=== PATIENT | female | born 1965 | race Caucasian/White ===

== ENCOUNTER → 2019-01-07 | Outpatient (CLI) | payer OTHER ==
[~2019-01-07] MED LIST: REGADENOSON 0.4 MG/5 ML SYRINGE IV ONE
--- NOTE | 2019-01-07 13:13 | EST ---
EXERCISE STRESS AGE: 53 SEX: F HT: 5'6" WT: 282 PROTOCOL: Lexiscan Cardiolite Study HEART RATE REST: 72 BLOOD PRESSURE REST: 127/87 MAXIMUM HEART RATE ACHIEVED: 97 MAXIMUM BLOOD PRESSURE: 174/83 INDICATIONS: Dyspnea. CLINICAL INFORMATION: Baseline rhythm is sinus mechanism, rate 72, normal axis, intervals, normal electrocardiogram. Baseline blood pressure 127/87 mmHg. Patient received an injection of Lexiscan. Electrocardiograph monitoring revealed no evidence of diagnostic ischemic ST deviation. Cardiolite was injected per protocol. CONCLUSION: 1. Nondiagnostic electrocardiograph stress testing. 2. Nuclear images will be reported separately. MMODL / IJN: [id number] /
--- NOTE | 2019-01-07 16:45 | NM ---
EXAMINATION TYPE: NM stress lexiscan cardiolite DATE OF EXAM: 01/07/2019 COMPARISON: NONE HISTORY: 53-year-old female with shortness of breath, dyspnea TECHNIQUE: After the intravenous administration of 10.4 mCi Tc 99m Sestamibi - Cardiolite resting SP ECT images acquired 45 minutes post injection. The patient received 0.4mg Lexiscan, 26 mCi Tc 99m Sestamibi - Stress images obtained 45 minutes post injection FINDINGS: Review of stress and rest SPECT images demonstrates possible small area of reversibility along the mi d anterior wall, not corroborated on polar maps. Gated analysis shows normal wall motion with an tello mated left ventricular ejection fraction of 64 %. TID is abnormally elevated at 1.37. IMPRESSION: Elevated TID (1.37) which can be seen in the setting of multivessel balanced inducible ischemia. Furt her workup is clinically indicated. Also, a small area of possible reversibility along the mid anteri or wall is not corroborated on color maps.
== END | disposition home or self-care (01) ==
LOC: RADNMMAIN 09:12
PROVIDERS: ATTEND Internal Medicine Cardiovascular Disease
DX: R94.39 Abnormal result of other cardiovascular function study (principal); R06.00 Dyspnea, unspecified
CPT/HCPCS: 93017; 83880; 78452; A9500; J2785

== ENCOUNTER → 2019-01-07 | Outpatient (CLI) | payer OTHER ==
--- NOTE | 2019-01-07 16:47 | ECHOF ---
Referral Reason:R06.00 Dyspnea MEASUREMENTS -------- HEIGHT: 165.1 cm WEIGHT: 127.9 kg BP: IVSd: 0.8 cm (0.6 - 1.1) LVIDd: 5.6 cm (3.9 - 5.3) LVPWd: 1.1 cm (0.6 - 1.1) IVSs: 1.1 cm LVIDs: 3.9 cm LVPWs: 1.4 cm LA Diam: 3.6 cm (2.7 - 3.8) LAESV Index (A-L): 18.50 ml/m Ao Diam: 3.6 cm (2.0 - 3.7) LA Diam: 3.7 cm (2.7 - 3.8) MV EXCURSION: 19.544 mm (> 18.000) MV EF SLOPE: 83 mm/s (70 - 150) EPSS: 0.4 cm MV E Miguel Ángel: 0.71 m/s MV DecT: 267 ms MV A Miguel Ángel: 0.79 m/s MV E/A Ratio: 0.90 RAP: 5.00 mmHg RVSP: 21.33 mmHg FINDINGS -------- Sinus rhythm. Morbid Obesity This was a techncally difficult study with suboptimal views, , Lumason utilized for enhancement of images. LV size, wall thickness and systolic function are normal, with an EF greater than 55%. The left jb tricular size is normal. The right ventricle is normal in size. Normal LA size by volume 22+/-6 ml/m2. The right atrial size is normal. 5.0mg OF Lumason UTLIZED: 2 OR MORE WALL SEGMENTS NOT VISUALIZED. The aortic valve was not well visualized. Mild mitral annular calcification present. Mild mitral regurgitation is present. Mild tricuspid regurgitation present. There is no evidence of pulmonary hypertension. The right v entricular systolic pressure, as measured by Doppler, is 21.33mmHg. The pulmonic valve was not well visualized. There is no pulmonic regurgitation present. The aortic root size is normal. There is no pericardial effusion. CONCLUSIONS -------- 1. Sinus rhythm. 2. Morbid Obesity 3. This was a techncally difficult study with suboptimal views, , Lumason utilized for enhancement of images. 4. LV size, wall thickness and systolic function are normal, with an EF greater than 55%. 5. The left ventricular size is normal. 6. Normal LA size by volume 22+/-6 ml/m2. 7. 5.0mg OF Lumason UTLIZED: 2 OR MORE WALL SEGMENTS NOT VISUALIZED. 8. The aortic valve was not well visualized. 9. Mild mitral annular calcification present. 10. Mild mitral regurgitation is present. 11. Mild tricuspid regurgitation present. 12. There is no evidence of pulmonary hypertension. 13. The pulmonic valve was not well visualized. 14. The aortic root size is normal. 15. There is no pericardial effusion. DIVISION CHIEF: Silvana Cruz RDCS
== END | disposition home or self-care (01) ==
LOC: RADECHMAIN 09:20
PROVIDERS: ATTEND Internal Medicine Pulmonary Disease
DX: I08.1 Rheumatic disorders of both mitral and tricuspid valves (principal); E66.01 Morbid (severe) obesity due to excess calories
CPT/HCPCS: C8929; Q9950; 93306

== ENCOUNTER → 2019-01-16 | Outpatient (CLI) | payer OTHER ==
[2019-01-16 13:14] LABS: Basophils % (A) 1 %; Eosinophils # (A) 0.1 k/uL (0-0.7); Eosinophils % (A) 1 %; HCT 36.3 % (34.0-46.0); HGB 12.6 gm/dL (11.4-16.0); Lymphocytes # (A) 1.7 k/uL (1.0-4.8); Lymphocytes % (A) 22 %; MCH 33.5 pg (25.0-35.0); MCHC 34.6 g/dL (31.0-37.0); MCV 96.7 fL (80.0-100.0); Mean Platelet Volume 7.1; Monocytes # (A) 0.2 k/uL (0-1.0); Monocytes % (A) 3 %; Neutrophils # (A) 5.5 k/uL (1.3-7.7); Neutrophils % (A) 72 %; Platelet Count 232 k/uL (150-450); RBC 3.76 m/uL (3.80-5.40); RDW 13.7 % (11.5-15.5); WBC 7.7 k/uL (3.8-10.6)
[2019-01-16 13:21] LABS: INR 0.9 (<1.2); Prothrombin Time 9.5 sec (9.0-12.0)
[2019-01-16 18:47] LABS: African American GFR (CKD) 114.6 (60.0-200.0); Albumin 4.1 g/dL (3.80-4.90); Albumin/Globulin Ratio 1.86 (1.60-3.17); Anion Gap 11.3 mmol/L (4.00-12.00); BUN/Creat Ratio 14.29 Ratio (12.00-20.00); Calcium 8.8 mg/dL (8.7-10.3); Carbon Dioxide 31.7 mmol/L (21.6-31.8); Globulin 2.2 g/dL (1.6-3.3); Total Bilirubin 0.5 mg/dL (0.3-1.2); Total Protein 6.3 g/dL (6.2-8.2)
== END | disposition home or self-care (01) ==
LOC: LABWHC1 11:50
PROVIDERS: ATTEND Internal Medicine Cardiovascular Disease
DX: R06.00 Dyspnea, unspecified (principal)
CPT/HCPCS: 36415; 80053; 85025; 85610

== ENCOUNTER 2022-07-22 10:53 | Inpatient (IN) | payer MEDICARE, OTHER ==
[2022-07-22] MEDS ORDERED: SODIUM CHLORIDE 0.9% 500 ML 500 ML IV ONE (11:07)
[2022-07-22] MEDS ORDERED: SODIUM CHLORIDE 0.9% 1,000 ML IV ONE (11:07)
--- NOTE | 2022-07-22 11:10 | ED ---
General Adult HPI - General Stated complaint: SOB Time Seen by Provider: 07/22/22 11:00 Source: patient, RN notes reviewed, old records reviewed - History of Present Illness Initial comments: This is a 56-year-old female presents emergency department with past medical history significant for COPD and asthma. Patient states she started having difficulty breathing yesterday has gotten progressively worse. When EMS arrived they stated she wasn't moving much of a gave her breathing treatment it improved her considerably. Patient states his sugars are also benign she's been urinating a lot. Patient denies any chest pain or palpitations. Patient denies any abdominal pain however she states she has been vomiting and the last time she vomited was yesterday and she also said diarrhea on and off all week. Patient also has a past medical history significant for breast cancer and she last received chemotherapy on Monday. Patient states she has been feeling quite lightheaded and has thought that time she might pass out. These symptoms as well started yesterday - Related Data Home Medications Medication Instructions Recorded Confirmed ALPRAZolam [Xanax] 0.25 mg PO TID PRN 07/22/22 07/22/22 Acetaminophen Tab [Tylenol Tab] 500 mg PO QID PRN 07/22/22 07/22/22 Albuterol Sulfate [Albuterol 2 puff INHALATION RT-Q4H PRN 07/22/22 07/22/22 Sulfate Hfa] Ammonium Lactate Lotion 1 applic TOPICAL DAILY 07/22/22 07/22/22 [Lac-Hydrin 12% Lotion] Aspirin 81 mg PO DAILY@79907/22/22 07/22/22 Atorvastatin [Lipitor] 40 mg PO HS@199907/22/22 07/22/22 Cetirizine HCl [Zyrtec] 10 mg PO DAILY@79907/22/22 07/22/22 Cholecalciferol [Vitamin D3 (25 75 mcg PO DAILY@79907/22/22 07/22/22 Mcg = 1000 Iu)] Citalopram Hydrobromide [CeleXA] 40 mg PO DAILY@79907/22/22 07/22/22 Complete Advanced Complete 1 tab PO DAILY@79907/22/22 07/22/22 Cyanocobalamin (Vitamin B-12) 1,000 mcg PO DAILY@79907/22/22 07/22/22 [Vitamin B-12] DULoxetine HCL [Cymbalta] 30 mg PO BID@0800,199907/22/22 07/22/22 Dulaglutide [Trulicity] 1.5 mg SQ FR 07/22/22 07/22/22 Ferrous Sulfate [Feosol] 325 mg PO DAILY@79907/22/22 07/22/22 Fluticasone Propionate 110 Mcg 2 puff INHALATION RT-BID PRN 07/22/22 07/22/22 [Flovent 110 Mcg Inhaler] Furosemide [Lasix] 40 mg PO DAILY@79907/22/22 07/22/22 Ibuprofen [Motrin] 400 mg PO QID PRN 07/22/22 07/22/22 Loratadine [Claritin] 10 mg PO DAILY PRN 07/22/22 07/22/22 Multivitamins, Thera [Multivitamin 1 tab PO DAILY@79907/22/22 07/22/22 (formulary)] Geneva-3/Dha/Epa/Fish Oil [Fish Oil 1 cap PO BID@08,199907/22/22 07/22/22 1,000 mg Softgel] Ondansetron [Zofran] 4 mg PO Q8H PRN 07/22/22 07/22/22 Pantoprazole [Protonix] 40 mg PO DAILY@79907/22/22 07/22/22 Pembrolizumab [Keytruda] 1 dose IV Q21D 07/22/22 07/22/22 Prochlorperazine [Compazine] 10 mg PO Q6H PRN 07/22/22 07/22/22 Simethicone [Gas-X] 125 mg PO QID PRN 07/22/22 07/22/22 gemfibroziL [Lopid] 600 mg PO BID@0800,1200 07/22/22 07/22/22 glipiZIDE [Glucotrol] 10 mg PO BID@0800,1200 07/22/22 07/22/22 metFORMIN HCL [Glucophage] 500 mg PO BID@0800,199907/22/22 07/22/22 methocarbamoL [Robaxin-750] 750 mg PO BID PRN 07/22/22 07/22/22 Allergies Allergy/AdvReac Type Severity Reaction Status Date / Time adhesive Allergy Rash/Hives Verified 07/22/22 13:55 steri stips Allergy Rash/Hives Uncoded 07/22/22 13:55 Review of Systems ROS Statement: Those systems with pertinent positive or pertinent negative responses have been documented in the HPI. ROS Other: All systems not noted in ROS Statement are negative. General Exam - General Exam Comments Initial Comments: GENERAL: Patient is well-developed and well-nourished. Patient is nontoxic and well- hydrated and is in mild distress. ENT: Neck is soft and supple. No significant lymphadenopathy is noted. Oropharynx is clear. Dry mucous membranes. Neck has full range of motion without eliciting any pain. EYES: The sclera were anicteric and conjunctiva were pink and moist. Extraocular movements were intact and pupils were equal round and reactive to light. Eyelids were unremarkable. PULMONARY: Unlabored respirations. Good breath sounds bilaterally. No audible rales rhonchi or wheezing was noted. CARDIOVASCULAR: There is a regular rate and rhythm without any murmurs gallops or rubs. ABDOMEN: Soft and nontender with normal bowel sounds. SKIN: Skin is clear with no lesions or rashes and otherwise unremarkable. NEUROLOGIC: Patient is alert and oriented x3. Cranial nerves II through XII are grossly intact. Motor and sensory are also intact. Normal speech, volume and content. Symmetrical smile. MUSCULOSKELETAL: Normal extremities with adequate strength and full range of motion. No lower extremity swelling or edema. No calf tenderness. LYMPHATICS: No significant lymphadenopathy is noted PSYCHIATRIC: Normal psychiatric evaluation. Course Vital Signs 07/22/22 07/22/22 07/22/22 11:04 11:48 12:15 Temperature 98.2 F Pulse Rate 108 H 103 H 99 Respiratory 22 22 20 Rate Blood Pressure 100/60 92/63 101/70 O2 Sat by Pulse 98 100 Oximetry 07/22/22 07/22/22 13:00 14:42 Temperature Pulse Rate 98 Respiratory 20 Rate Blood Pressure 109/63 115/64 O2 Sat by Pulse 100 Oximetry Medical Decision Making - Medical Decision Making EKG was interpreted by myself shows sinus rhythm at 97 bpm OR interval 100 690 QRS is 94 QT interval 375 QTC is 4:30. Patient's EKG shows no ST segment elevation or depression. Was pt. sent in by a medical professional or institution (Dr., PA, [facility] [employer], urgent care, hospital, or [facility]...) When possible be specific @ -No Did you speak to anyone other than the patient for history (EMS, parent, family, police, friend...)? What history was obtained from this source @ -No Did you review nursing and triage notes (agree or disagree)? Why? @ -I reviewed and agree with nursing and triage notes Were old charts reviewed (outside hosp., previous admission, EMS record, old EKG, old radiological studies, urgent care reports/EKG's, [facility] records)? Report findings @ -No old charts were reviewed Differential Diagnosis (chest pain, altered mental status, abdominal pain women, abdominal pain men, vaginal bleeding, weakness, fever, dyspnea, syncope, headache, dizziness, GI bleed, back pain, seizure, CVA, palpatations, mental health, musculoskeletal)? @ -Differential Dyspnea: Coronary syndrome, arrhythmia, tamponade, asthma, COPD, pulmonary embolism, pneumonia, pneumothorax, pulmonary effusion, anaphylaxis, diabetic ketoacidosis, flailed chest, pulmonary contusion, diaphragmatic rupture, anemia, neuromuscular, this is not meant to be an all-inclusive list. EKG interpreted by me (3pts min.). @ -As above X-rays interpreted by me (1pt min.). @ -Chest x-ray was interpreted by myself is on no acute abnormality. CT interpreted by me (1pt min.). @ -None done U/S interpreted by me (1pt. min.). @ -None done What testing was considered but not performed or refused? (CT, X-rays, U/S, labs)? Why? @ -None What meds were considered but not given or refused? Why? @ -None Did you discuss the management of the patient with other professionals (professionals i.e. GREGOR Saunders, [employer], lab, RT, psych nurse, social media intern, senior policy analyst, teacher, railroad police officer, field nurse case manager)? Give summary @ -I spoke with Dr. Stapleton he agreed to admit the patient Was smoking cessation discussed for >3mins.? @ -No Was critical care preformed (if so, how long)? @ -35 minutes Were there social determinants of health that impacted care today? How? (Homel essness, low income, unemployed, alcoholism, drug addiction, transportation, low edu. Level, literacy, decrease access to med. care, residential, rehab)? @ -No Was there de-escalation of care discussed even if they declined (Discuss DNR or withdrawal of care, Hospice)? DNR status @ -No What co-morbidities impacted this encounter? (DM, HTN, Smoking, COPD, CAD, Cancer, CVA, ARF, Chemo, Hep., AIDS, mental health diagnosis, sleep apnea, morbid obesity)? @ -None Was patient admitted / discharged? Hospital course, mention meds given and route, prescriptions, significant lab abnormalities, going to OR and other pertinent info. @ -Patient came in according to EMS she was wheezing and not moving much air and after a breathing treatment she was doing considerably better. When I saw the patient she was no longer dyspneic and I did not hear any wheezing. Patient was in DKA and I gave her a fluid bolus Dr. Stapleton was contacted he wanted to admit the patient so I admitted the patient. He did not want to start insulin at this point so I held at this point. Patient's white count was 0.6 and because she was a COPD or and had some bronchospasms on the way in I keeps her a dose of antibiotics to cover her at this time. Undiagnosed new problem with uncertain prognosis? @ -No Drug Therapy requiring intensive monitoring for toxicity (Heparin, Nitro, Insulin, Cardizem)? @ -No Were any procedures done? @ -No Diagnosis/symptom? @ -DKA Acute, or Chronic, or Acute on Chronic? @ -Acute Uncomplicated (without systemic symptoms) or Complicated (systemic symptoms)? @ -Complicated Side effects of treatment? @ -No Exacerbation, Progression, or Severe Exacerbation? @ -No Poses a threat to life or bodily function? How? (Chest pain, [place], CA, pneumonia, PE, COPD, DKA, ARF, appy, cholecystitis, CVA, Diverticulitis, Homicidal, Suicidal, threat to staff... and all critical care pts) @ -Yes this can lead to dehydration and end organ dysfunction Diagnosis/symptom? @ -COPD exacerbation Acute, or Chronic, or Acute on Chronic? @ -Acute Uncomplicated (without systemic symptoms) or Complicated (systemic symptoms)? @ -Complicated Side effects of treatment? @ -none Exacerbation, Progression, or Severe Exacerbation] @ -no Poses a threat to life or bodily function? @ -no - Lab Data Result diagrams: 07/22/22 11:19 07/22/22 11:19 Lab Results 07/22/22 07/22/22 07/22/22 Range/Units 11:19 11:19 11:19 WBC 0.6 L* (3.8-10.6) k/uL RBC 3.56 L (3.80-5.40) m/uL Hgb 11.6 (11.4-16.0) gm/dL Hct 33.9 L (34.0-46.0) % MCV 95.4 (80.0-100.0) fL MCH 32.7 (25.0-35.0) pg MCHC 34.3 (31.0-37.0) g/dL RDW 12.9 (11.5-15.5) % Plt Count 160 (150-450) k/uL MPV 10.2 Differential Comment Manual Slide Review Performed PT 12.5 H (9.0-12.0) sec INR 1.2 H (<1.2) APTT 21.0 L (22.0-30.0) sec Sodium 130 L (137-145) mmol/L Potassium 3.6 (3.5-5.1) mmol/L Chloride 98 (98-107) mmol/L Carbon Dioxide 19 L (22-30) mmol/L Anion Gap 13 mmol/L BUN 15 (7-17) mg/dL Creatinine 0.71 (0.52-1.04) mg/dL Est GFR (CKD-EPI)AfAm >90 (>60 ml/min/1.73 sqM) Est GFR (CKD-EPI)NonAf >90 (>60 ml/min/1.73 sqM) Glucose 424 H (74-99) mg/dL Lactic Ac Sepsis Rflx Plasma Lactic Acid Garcia (0.7-2.0) mmol/L Calcium 7.0 L (8.4-10.2) mg/dL Magnesium 1.5 L (1.6-2.3) mg/dL Total Bilirubin 3.0 H (0.2-1.3) mg/dL AST 29 (14-36) U/L ALT 39 H (4-34) U/L Alkaline Phosphatase 57 (38-126) U/L Troponin I (0.000-0.034) ng/mL Total Protein 5.1 L (6.3-8.2) g/dL Albumin 2.8 L (3.5-5.0) g/dL Acetone, Qual Positive (Negative) 07/22/22 07/22/22 07/22/22 Range/Units 11:19 11:19 12:09 WBC (3.8-10.6) k/uL RBC (3.80-5.40) m/uL Hgb (11.4-16.0) gm/dL Hct (34.0-46.0) % MCV (80.0-100.0) fL MCH (25.0-35.0) pg MCHC (31.0-37.0) g/dL RDW (11.5-15.5) % Plt Count (150-450) k/uL MPV Differential Comment Manual Slide Review PT (9.0-12.0) sec INR (<1.2) APTT (22.0-30.0) sec Sodium (137-145) mmol/L Potassium (3.5-5.1) mmol/L Chloride (98-107) mmol/L Carbon Dioxide (22-30) mmol/L Anion Gap mmol/L BUN (7-17) mg/dL Creatinine (0.52-1.04) mg/dL Est GFR (CKD-EPI)AfAm (>60 ml/min/1.73 sqM) Est GFR (CKD-EPI)NonAf (>60 ml/min/1.73 sqM) Glucose (74-99) mg/dL Lactic Ac Sepsis Rflx Y Plasma Lactic Acid Garcia 3.8 H* (0.7-2.0) mmol/L Calcium (8.4-10.2) mg/dL Magnesium (1.6-2.3) mg/dL Total Bilirubin (0.2-1.3) mg/dL AST (14-36) U/L ALT (4-34) U/L Alkaline Phosphatase (38-126) U/L Troponin I <0.012 (0.000-0.034) ng/mL Total Protein (6.3-8.2) g/dL Albumin (3.5-5.0) g/dL Acetone, Qual (Negative) Critical Care Time Critical Care Time: Yes Total Critical Care Time: 35 Disposition Clinical Impression: Acute exacerbation of chronic obstructive pulmonary disease, Diabetic ketoacidosis Disposition: ADMITTED IP TO THIS HOSP Referrals: Nonstaff,Physician [REFERRING] - 1-2 days Time of Disposition: 14:49
[2022-07-22 11:43] LABS: ALT 39 U/L (4-34); AST 29 U/L (14-36); African American GFR (CKD) >90 (>60 ml/min/1.73 sqM); Albumin 2.8 g/dL (3.5-5.0); Alkaline Phosphatase 57 U/L (38-126); Anion Gap 13 mmol/L; Blood Urea Nitrogen 15 mg/dL (7-17); Carbon Dioxide 19 mmol/L (22-30); Chloride 98 mmol/L (98-107); Glucose 424 mg/dL (74-99); Magnesium 1.5 mg/dL (1.6-2.3); Non-African American GFR(CKD) >90 (>60 ml/min/1.73 sqM); Potassium 3.6 mmol/L (3.5-5.1); Sodium 130 mmol/L (137-145); Total Protein 5.1 g/dL (6.3-8.2)
--- NOTE | 2022-07-22 11:43 | XR ---
EXAMINATION TYPE: XR chest 2V DATE OF EXAM: 07/22/2022 11:36 AM COMPARISON: None TECHNIQUE: XR chest 2V Frontal and lateral views of the chest. CLINICAL INDICATION:Female, 56 years old with history of difficulty breathing; FINDINGS: Lungs/Pleura: There is no evidence of pleural effusion, focal consolidation, or pneumothorax. Pulmonary vascularity: Unremarkable. Heart/mediastinum: Cardiomediastinal silhouette is mildly enlarged. Musculoskeletal: No acute osseous pathology. Other findings: None Lines/Tubes: [id number] projecting over the left hemithorax with distal tip at the mid SVC. IMPRESSION: No acute cardiopulmonary disease/process.
[2022-07-22 11:45] LABS: INR 1.2 (<1.2); Prothrombin Time 12.5 sec (9.0-12.0)
[2022-07-22] MEDS ORDERED: KETOROLAC 15 MG/ML 1 ML VIAL IVP STA ×2 (11:59→18:47)
[2022-07-22 12:30] LABS: HCT 33.9 % (34.0-46.0); HGB 11.6 gm/dL (11.4-16.0); MCH 32.7 pg (25.0-35.0); MCHC 34.3 g/dL (31.0-37.0); MCV 95.4 fL (80.0-100.0); Mean Platelet Volume 10.2; Platelet Count 160 k/uL (150-450); RBC 3.56 m/uL (3.80-5.40); RDW 12.9 % (11.5-15.5)
[2022-07-22 12:32] LABS: WBC 0.6 k/uL (3.8-10.6)
[2022-07-22] MEDS ORDERED: CEFEPIME 2 GM in SODIUM CHLORIDE 0.9% 100 ML IVPB STA (13:00)
[2022-07-22] MEDS ORDERED: NALOXONE 0.4 MG/ML 1 ML VIAL IV PRN (14:52)
[2022-07-22] MEDS ORDERED: bisacodyL 5 MG TABLET.DR PO PRN (14:55)
[2022-07-22] MEDS ORDERED: MELATONIN 3 MG TABLET PO PRN (14:55)
[2022-07-22] MEDS ORDERED: MAGNESIUM HYDROXIDE 2,400 MG/10 ML CUP PO PRN (14:55)
[2022-07-22] MEDS ORDERED: ALBUTEROL HFA INHALER INHALATION PRN (15:01)
[2022-07-22] MEDS ORDERED: methocarbamoL 750 MG TAB PO PRN (15:01)
[2022-07-22] MEDS ORDERED: ALPRAZolam 0.25 MG TAB PO PRN (15:01)
[2022-07-22] MEDS ORDERED: VANCOMYCIN IV PER PHARMACY 1 EACH MISC MISCELLANE PRN (15:04)
[2022-07-22] MEDS ORDERED: VANCOMYCIN 1,750 MG in SODIUM CHLORIDE 0.9% 500 ML 500 ML IVPB ONE (15:45)
[2022-07-22 15:55] LABS: African American GFR (CKD) >90 (>60 ml/min/1.73 sqM); Anion Gap 15 mmol/L; Blood Urea Nitrogen 15 mg/dL (7-17); Carbon Dioxide 19 mmol/L (22-30); Chloride 98 mmol/L (98-107); Glucose 425 mg/dL (74-99); Non-African American GFR(CKD) >90 (>60 ml/min/1.73 sqM); Potassium 3.6 mmol/L (3.5-5.1); Sodium 132 mmol/L (137-145)
[2022-07-22] MEDS ORDERED: IPRATROPIUM-ALBUTEROL 3 ML NEB INHALATION SCH ×2 (16:00→20:00)
[2022-07-22] MEDS: SODIUM CHLORIDE 0.9% 1,000 ML IV SCH (16:06)
[2022-07-22] MEDS: ONDANSETRON 4 MG/2 ML VIAL IVP PRN ×2 (16:07→22:25)
[2022-07-22] MEDS: IPRATROPIUM 0.5 MG/2.5 ML NEBU INHALATION SCH ×3 (16:13→21:04)
[2022-07-22] MEDS: ALBUTEROL NEBULIZED 2.5 MG/3 ML INHALATION SCH ×3 (16:13→21:04)
[2022-07-22 16:43] LABS: Glucose,Whole Blood 425 mg/dL (70-110)
--- NOTE | 2022-07-22 17:37 | P.HPIM ---
History of Present Illness H&P Date: 07/29/22 Chief Complaint: Shortness of breath 86-year-old female patient with a past medical history significant for COPD/asthma not on home oxygen, nonsmoker, hypertension, diabetes mellitus type 2, breast cancer in the right breast receiving chemotherapy currently ,came to the emergency room with a history of shortness of breath and wheezing which started 2 days prior to admission. Patient data cough with expectoration of whitish to yellow sputum., Denied any complaints of fever chills or rhinitis. Patient denied any history of chest pain nausea and diaphoresis palpitations. Patient has had some vomiting and diarrhea off and on for the last 3-4 days but denied any hematemesis melena or bleeding per rectum, denied any history of urinary symptoms. Patient complained of generalized weakness and dizziness, denied any history of loss of consciousness. Patient denied any history of headache blurry vision and difficulty with speech numbness tingling or weakness of the extremities ER course Labs of note White cell count was 0.6, PT 12.5, INR 1.2, sodium 132, bicarb 19, glucose 425, lactic acid 3.8, calcium 7.0, phosphorus 1.8, magnesium 1.5 Chest x-ray poor inspiratory film no definite infiltrates noted Patient received neb treatments, IV vancomycin and IV cefepime in the ER Heart rate was noted to be 108, white cell count was 0.6 meeting SIRS criteria Review of Systems All review of systems were reviewed and was noted to be negative other than that which is mentioned in the HPI Past Medical History Past Medical History: Asthma, Cancer, COPD, Diabetes Mellitus, Hypertension Past Surgical History: Heart Catheterization Additional Past Surgical History / Comment(s): port for chemo, abcessed teeth Past Psychological History: Depression, PTSD Smoking Status: Former smoker Past Alcohol Use History: None Reported Past Drug Use History: None Reported Medications and Allergies Home Medications Medication Instructions Recorded Confirmed Type ALPRAZolam [Xanax] 0.25 mg PO TID PRN 07/22/22 07/22/22 History Acetaminophen Tab [Tylenol Tab] 500 mg PO QID PRN 07/22/22 07/22/22 History Albuterol Sulfate [Albuterol 2 puff INHALATION RT-Q4H PRN 07/22/22 07/22/22 History Sulfate Hfa] Ammonium Lactate Lotion 1 applic TOPICAL DAILY 07/22/22 07/22/22 History [Lac-Hydrin 12% Lotion] Aspirin 81 mg PO DAILY@79907/22/22 07/22/22 History Atorvastatin [Lipitor] 40 mg PO HS@199907/22/22 07/22/22 History Cetirizine HCl [Zyrtec] 10 mg PO DAILY@79907/22/22 07/22/22 History Cholecalciferol [Vitamin D3 (25 75 mcg PO DAILY@79907/22/22 07/22/22 History Mcg = 1000 Iu)] Citalopram Hydrobromide [CeleXA] 40 mg PO DAILY@79907/22/22 07/22/22 History Complete Advanced Complete 1 tab PO DAILY@79907/22/22 07/22/22 History Cyanocobalamin (Vitamin B-12) 1,000 mcg PO DAILY@79907/22/22 07/22/22 History [Vitamin B-12] DULoxetine HCL [Cymbalta] 30 mg PO BID@799,199907/22/22 07/22/22 History Dulaglutide [Trulicity] 1.5 mg SQ FR 07/22/22 07/22/22 History Ferrous Sulfate [Feosol] 325 mg PO DAILY@79907/22/22 07/22/22 History Fluticasone Propionate 110 Mcg 2 puff INHALATION RT-BID PRN 07/22/22 07/22/22 History [Flovent 110 Mcg Inhaler] Furosemide [Lasix] 40 mg PO DAILY@79907/22/22 07/22/22 History Ibuprofen [Motrin] 400 mg PO QID PRN 07/22/22 07/22/22 History Loratadine [Claritin] 10 mg PO DAILY PRN 07/22/22 07/22/22 History Multivitamins, Thera [Multivitamin 1 tab PO DAILY@79907/22/22 07/22/22 History (formulary)] [place]-3/Dha/Epa/Fish Oil [Fish Oil 1 cap PO BID@799,199907/22/22 07/22/22 History 1,000 mg Softgel] Ondansetron [Zofran] 4 mg PO Q8H PRN 07/22/22 07/22/22 History Pantoprazole [Protonix] 40 mg PO DAILY@0800 07/22/22 07/22/22 History Pembrolizumab [Keytruda] 1 dose IV Q21D 07/22/22 07/22/22 History Prochlorperazine [Compazine] 10 mg PO Q6H PRN 07/22/22 07/22/22 History Simethicone [Gas-X] 125 mg PO QID PRN 07/22/22 07/22/22 History gemfibroziL [Lopid] 600 mg PO BID@0800,1200 07/22/22 07/22/22 History glipiZIDE [Glucotrol] 10 mg PO BID@0800,1200 07/22/22 07/22/22 History metFORMIN HCL [Glucophage] 500 mg PO BID@0800,2000 07/22/22 07/22/22 History methocarbamoL [Robaxin-750] 750 mg PO BID PRN 07/22/22 07/22/22 History Allergies Allergy/AdvReac Type Severity Reaction Status Date / Time adhesive Allergy Rash/Hives Verified 07/22/22 13:55 steri stips Allergy Rash/Hives Uncoded 07/22/22 13:55 Physical Exam Vitals: Vital Signs Temp Pulse Resp BP Pulse Ox 07/22/22 15:30 108 H 07/22/22 15:25 98 07/22/22 15:24 104 H 07/22/22 14:42 98 20 115/64 100 07/22/22 13:00 109/63 07/22/22 12:15 99 20 101/70 07/22/22 11:48 103 H 22 92/63 100 07/22/22 11:04 98.2 F 108 H 22 100/60 98 Intake and Output 07/22/22 07/22/22 07/22/22 06:59 14:59 22:59 Other: Weight 116 kg Constitutional: No acute distress, conversant, pleasant Eyes: Anicteric sclerae, moist conjunctiva, Pupils equal round reactive to light ENMT: NC/AT Oropharynx clear, no erythema, or exudates Neck: Supple, no masses, or JVD No carotid bruits No thyromegaly Lungs: Receiving oxygen 2 L by nasal cannula, Not using accessory muscles of respiration, Scattered wheezing heard Cardiovascular: Heart regular in rate and rhythm, No murmurs, gallops, or rubs No peripheral edema Abdominal: Soft Nontender, no guarding, rebound or rigidity Abdomen moving with respiration Normoactive bowel sounds No hepatomegaly, No splenomegaly No palpable mass No abdominal wall hernia noted Skin: Normal temperature, tone, texture, turgor No induration No subcutaneous nodules No rash, lesions No ulcers Extremities: No digital cyanosis No clubbing Pedal pulses intact and symmetrical Radial pulses intact and symmetrical No calf tenderness Psychiatric: Alert and oriented to person, place and time Appropriate affect fair judgement Results CBC & Chem 7: 07/22/22 11:19 07/22/22 15:24 Labs: Abnormal Lab Results - Last 24 Hours (Table) 07/22/22 07/22/22 07/22/22 Range/Units 11:19 11: 11:19 WBC 0.6 L* (3.8-10.6) k/uL RBC 3.56 L (3.80-5.40) m/uL Hct 33.9 L (34.0-46.0) % PT 12.5 H (9.0-12.0) sec INR 1.2 H (<1.2) APTT 21.0 L (22.0-30.0) sec Sodium 130 L (137-145) mmol/L Carbon Dioxide 19 L (22-30) mmol/L Glucose 424 H (74-99) mg/dL POC Glucose (mg/dL) (70-110) mg/dL Plasma Lactic Acid Garcia (0.7-2.0) mmol/L Calcium 7.0 L (8.4-10.2) mg/dL Phosphorus (2.5-4.5) mg/dL Magnesium 1.5 L (1.6-2.3) mg/dL Total Bilirubin 3.0 H (0.2-1.3) mg/dL ALT 39 H (4-34) U/L Total Protein 5.1 L (6.3-8.2) g/dL Albumin 2.8 L (3.5-5.0) g/dL 07/22/22 07/22/22 07/22/22 Range/Units 11:19 15:24 15:24 WBC (3.8-10.6) k/uL RBC (3.80-5.40) m/uL Hct (34.0-46.0) % PT (9.0-12.0) sec INR (<1.2) APTT (22.0-30.0) sec Sodium 132 L (137-145) mmol/L Carbon Dioxide 19 L (22-30) mmol/L Glucose 425 H (74-99) mg/dL POC Glucose (mg/dL) (70-110) mg/dL Plasma Lactic Acid Garcia 3.8 H* (0.7-2.0) mmol/L Calcium (8.4-10.2) mg/dL Phosphorus 1.8 L (2.5-4.5) mg/dL Magnesium (1.6-2.3) mg/dL Total Bilirubin (0.2-1.3) mg/dL ALT (4-34) U/L Total Protein (6.3-8.2) g/dL Albumin (3.5-5.0) g/dL 07/22/22 Range/Units 16:41 WBC (3.8-10.6) k/uL RBC (3.80-5.40) m/uL Hct (34.0-46.0) % PT (9.0-12.0) sec INR (<1.2) APTT (22.0-30.0) sec Sodium (137-145) mmol/L Carbon Dioxide (22-30) mmol/L Glucose (74-99) mg/dL POC Glucose (mg/dL) 425 H (70-110) mg/dL Plasma Lactic Acid Garcia (0.7-2.0) mmol/L Calcium (8.4-10.2) mg/dL Phosphorus (2.5-4.5) mg/dL Magnesium (1.6-2.3) mg/dL Total Bilirubin (0.2-1.3) mg/dL ALT (4-34) U/L Total Protein (6.3-8.2) g/dL Albumin (3.5-5.0) g/dL Assessment and Plan Assessment: COPD acute exacerbation: -Continue nebulized Ventolin -Continue IV antibiotics -Supplemental oxygen Sepsis and patient was receiving chemotherapy for breast cancer(SIRS criteria low white cell count 0.6, tachycardia) -To continue IV vancomycin -Continue IV cefepime -To consult oncology in view of leukopenia Leukopenia secondary to recent chemotherapy -Continue IV vancomycin, IV cefepime -To consult oncology Hypomagnesemia: -To give IV magnesium - repeat labs in the morning Hypophosphatemia: -To give IV sodium phosphater -repeat labs in the morning Hypocalcemia: -To start calcium with vitamin D Diabetes mellitus2 poorly controlled: -Continue subcu insulin sliding scale -Carb consistent diet -Continue home medications Hypercholesterolemia: -Continue Lipitor, fenofibrate Patient may require 1-2 days in the hospital before she should be stable for discharge home DVT prophylaxis: Lovenox Time with Patient: Greater than 30 (40 minutes) Sepsis - Sepsis Sepsis Focused Exam #1 Sepsis Focused Exam Date: 07/22/22 Sepsis Focused Exam Time: 14:55 Sepsis Focused Exam Complete: Yes Vital Signs & RN Notes Reviewed: Yes Capillary Refill: < 2 Seconds: Fingers, Toes Peripheral Pulses: Strong: Radial (R), Radial (L), Posterior Tibialis (R), Posterior Tibialis (L), Dorsalis Pedis (R), Dorsalis Pedis (L) Skin Color: Normal for Patient Respiratory Exam: wheezes Cardiovascular Exam: tachycardia
[2022-07-22] MEDS ORDERED: SODIUM PHOSPHATE 30 MMOL in DEXTROSE 5% IN WATER 250 ML IVPB ONE ×2 (17:38)
[2022-07-22 18:22] LABS: Glucose,Whole Blood 427 mg/dL (70-110)
[2022-07-22] MEDS ORDERED: DEXTROSE 50% SYRINGE 50 ML IVP PRN ×2 (18:33)
[2022-07-22] MEDS ORDERED: INSULIN ASPART (NovoLOG) 100 UNIT/ML VIAL SQ ONE (18:46)
[2022-07-22] MEDS: ACETAMINOPHEN TAB 325 MG TAB PO PRN (19:03)
[2022-07-22] MEDS: CHOLECALCIFEROL 125 MCG (5000 IU) TABLET PO SCH (19:03)
[2022-07-22] MEDS ORDERED: ALBUTEROL NEBULIZED 2.5 MG/3 ML INHALATION PRN (19:13)
[2022-07-22] MEDS: MAGNESIUM SULFATE-D5W PMX 1 GM in DEXTROSE/WATER 1 100ML.BAG IVPB SCH ×3 (19:13→22:41)
[2022-07-22] MEDS ORDERED: IPRATROPIUM 0.5 MG/2.5 ML NEBU INHALATION PRN (19:13)
[2022-07-22 20:06] LABS: African American GFR (CKD) >90 (>60 ml/min/1.73 sqM); Anion Gap 11 mmol/L; Blood Urea Nitrogen 15 mg/dL (7-17); Carbon Dioxide 19 mmol/L (22-30); Chloride 101 mmol/L (98-107); Glucose 427 mg/dL (74-99); Non-African American GFR(CKD) >90 (>60 ml/min/1.73 sqM); Phosphorus 1.9 mg/dL (2.5-4.5); Potassium 3.7 mmol/L (3.5-5.1); Sodium 131 mmol/L (137-145)
[2022-07-22] MEDS: DULoxetine HCL 30 MG CAPSULE.DR PO SCH (21:14)
[2022-07-22] MEDS: metFORMIN 500 MG TAB PO SCH (21:14)
[2022-07-22] MEDS: ATORVASTATIN 40 MG TAB PO SCH (21:14)
[2022-07-22] MEDS: CEFEPIME 2 GM in SODIUM CHLORIDE 0.9% 100 ML IVPB SCH (21:54)
[2022-07-22 22:26] LABS: Glucose,Whole Blood 409 mg/dL (70-110)
[2022-07-22] MEDS: INSULIN ASPART (NovoLOG) 100 UNIT/ML VIAL SQ SCH (22:30)
[2022-07-23 00:33] LABS: Glucose,Whole Blood 392 mg/dL (70-110)
[2022-07-23] MEDS ORDERED: INSULIN ASPART (NovoLOG) 100 UNIT/ML VIAL SQ STA (00:44)
[2022-07-23] MEDS: ACETAMINOPHEN TAB 325 MG TAB PO PRN (02:07)
[2022-07-23] MEDS: SODIUM CHLORIDE 0.9% 1,000 ML IV SCH ×3 (02:10→22:26)
[2022-07-23] MEDS: ONDANSETRON 4 MG/2 ML VIAL IVP PRN ×4 (02:16→20:34)
[2022-07-23] MEDS: MAGNESIUM SULFATE-D5W PMX 1 GM in DEXTROSE/WATER 1 100ML.BAG IVPB SCH (05:01)
[2022-07-23] MEDS: VANCOMYCIN 1,750 MG in SODIUM CHLORIDE 0.9% 500 ML 500 ML IVPB SCH ×2 (05:57→18:31)
[2022-07-23 06:16] LABS: Glucose,Whole Blood 289 mg/dL (70-110)
[2022-07-23] MEDS: INSULIN ASPART (NovoLOG) 100 UNIT/ML VIAL SQ SCH ×4 (06:23→20:15)
[2022-07-23] MEDS: CEFEPIME 2 GM in SODIUM CHLORIDE 0.9% 100 ML IVPB SCH ×3 (06:23→22:46)
[2022-07-23 07:03] LABS: HCT 34.1 % (34.0-46.0); HGB 11.5 gm/dL (11.4-16.0); MCH 32.7 pg (25.0-35.0); MCHC 33.8 g/dL (31.0-37.0); MCV 96.6 fL (80.0-100.0); Mean Platelet Volume 10.1; Platelet Count 172 k/uL (150-450); RBC 3.53 m/uL (3.80-5.40); RDW 12.8 % (11.5-15.5)
[2022-07-23 07:18] LABS: ALT 30 U/L (4-34); AST 23 U/L (14-36); African American GFR (CKD) >90 (>60 ml/min/1.73 sqM); Albumin 2.6 g/dL (3.5-5.0); Alkaline Phosphatase 49 U/L (38-126); Anion Gap 8 mmol/L; Blood Urea Nitrogen 15 mg/dL (7-17); Calcium 6.7 mg/dL (8.4-10.2); Carbon Dioxide 22 mmol/L (22-30); Chloride 102 mmol/L (98-107); Glucose 275 mg/dL (74-99); Magnesium 2.4 mg/dL (1.6-2.3); Non-African American GFR(CKD) >90 (>60 ml/min/1.73 sqM); Potassium 3.4 mmol/L (3.5-5.1); Sodium 132 mmol/L (137-145); Total Bilirubin 1.5 mg/dL (0.2-1.3); Total Protein 5.1 g/dL (6.3-8.2)
[2022-07-23 07:21] LABS: WBC 0.6 k/uL (3.8-10.6)
[2022-07-23] MEDS: ASPIRIN 81 MG PO SCH (08:31)
[2022-07-23] MEDS: DULoxetine HCL 30 MG CAPSULE.DR PO SCH ×2 (08:31→20:15)
[2022-07-23] MEDS: PANTOPRAZOLE 40 MG TABLET PO SCH (08:31)
[2022-07-23] MEDS: ENOXAPARIN 40 MG/0.4 ML SYRINGE SQ SCH (08:31)
[2022-07-23] MEDS: MULTIVITAMINS, THERA 1 EACH TAB PO SCH (08:32)
[2022-07-23] MEDS: CITALOPRAM HYDROBROMIDE 20 MG TAB PO SCH (08:32)
[2022-07-23] MEDS: FENOFIBRATE 160 MG TAB PO SCH (08:32)
[2022-07-23] MEDS: LORATADINE 10 MG TAB PO SCH (08:32)
[2022-07-23] MEDS: metFORMIN 500 MG TAB PO SCH (08:32)
[2022-07-23] MEDS: CYANOCOBALAMIN 500 MCG TAB PO SCH (08:32)
[2022-07-23] MEDS: glipiZIDE 10 MG TAB PO SCH ×2 (08:32→19:56)
[2022-07-23] MEDS: CHOLECALCIFEROL 125 MCG (5000 IU) TABLET PO SCH (08:32)
[2022-07-23] MEDS: AMMONIUM LACTATE 12% LOTION 225 GM BTL TOPICAL SCH (08:33)
[2022-07-23 09:20] LABS: RBC Morphology Normal
[2022-07-23] MEDS: ALBUTEROL NEBULIZED 2.5 MG/3 ML INHALATION SCH ×4 (09:22→21:54)
[2022-07-23] MEDS: IPRATROPIUM 0.5 MG/2.5 ML NEBU INHALATION SCH ×4 (09:22→21:54)
[2022-07-23 09:25] LABS: C Reactive Protein 36.5 mg/dL (<1.0)
--- NOTE | 2022-07-23 09:45 | P.CONS ---
History of Present Illness - Reason for Consult Consult date: 07/23/22 Breast cancer Requesting physician: Randa Stapleton - Chief Complaint Shortness of breath - History of Present Illness Ms. Pimentel is a very pleasant 56-year-old female with a history of early stage triple negative breast cancer with axillary lymph node involvement, being treated by [facility] oncologist, recently started on what sounds to be neoadjuvant combination chemotherapy with immunotherapy, Keytruda in addition to 2 other chemotherapy drugs per patient, likely carboplatin and Taxol. Comes in with intractable vomiting, shortness of breath, and generalized weakness. Chest x- ray overall unremarkable. She was hypoxic and started on 2 L nasal cannula. Blood work with severe leukopenia/neutropenia with a WBC of 0.6, hemoglobin 11.6, platelet 160. She is being treated for sepsis, with a low-grade temp last night at 100.5, tachycardia and tachypnea. Blood pressure has been normal. Blood sugars were extremely elevated at 400s and now slowly improving. A1c was 10.8. We're consulted for her history of breast cancer on chemotherapy and severe leukopenia. She says this was her first cycle of chemo. She has had the 3 weekly doses of Taxol in addition to 1 dose of Keytruda and carboplatin on day 1. During her first week she mentions having severe body pain. Secondly her pain was improved and she started having mild nausea. This past week she has had intractable nausea and vomiting as well as diarrhea. No severe abdominal discomfort. No fevers at home up until yesterday. Past Medical History Past Medical History: Asthma, Cancer, COPD, Diabetes Mellitus, Hypertension History of Any Multi-Drug Resistant Organisms: None Reported Past Surgical History: Heart Catheterization Additional Past Surgical History / Comment(s): port for chemo, abcessed teeth Past Psychological History: Depression, PTSD Smoking Status: Former smoker Past Alcohol Use History: None Reported Past Drug Use History: None Reported Medications and Allergies Home Medications Medication Instructions Recorded Confirmed Type ALPRAZolam [Xanax] 0.25 mg PO TID PRN 07/22/22 07/22/22 History Acetaminophen Tab [Tylenol Tab] 500 mg PO QID PRN 07/22/22 07/22/22 History Albuterol Sulfate [Albuterol 2 puff INHALATION RT-Q4H PRN 07/22/22 07/22/22 History Sulfate Hfa] Ammonium Lactate Lotion 1 applic TOPICAL DAILY 07/22/22 07/22/22 History [Lac-Hydrin 12% Lotion] Aspirin 81 mg PO DAILY@79907/22/22 07/22/22 History Atorvastatin [Lipitor] 40 mg PO HS@199907/22/22 07/22/22 History Cetirizine HCl [Zyrtec] 10 mg PO DAILY@79907/22/22 07/22/22 History Cholecalciferol [Vitamin D3 (25 75 mcg PO DAILY@79907/22/22 07/22/22 History Mcg = 1000 Iu)] Citalopram Hydrobromide [CeleXA] 40 mg PO DAILY@79907/22/22 07/22/22 History Complete Advanced Complete 1 tab PO DAILY@79907/22/22 07/22/22 History Cyanocobalamin (Vitamin B-12) 1,000 mcg PO DAILY@79907/22/22 07/22/22 History [Vitamin B-12] DULoxetine HCL [Cymbalta] 30 mg PO BID@799,199907/22/22 07/22/22 History Dulaglutide [Trulicity] 1.5 mg SQ FR 07/22/22 07/22/22 History Ferrous Sulfate [Feosol] 325 mg PO DAILY@79907/22/22 07/22/22 History Fluticasone Propionate 110 Mcg 2 puff INHALATION RT-BID PRN 07/22/22 07/22/22 History [Flovent 110 Mcg Inhaler] Furosemide [Lasix] 40 mg PO DAILY@79907/22/22 07/22/22 History Ibuprofen [Motrin] 400 mg PO QID PRN 07/22/22 07/22/22 History Loratadine [Claritin] 10 mg PO DAILY PRN 07/22/22 07/22/22 History Multivitamins, Thera [Multivitamin 1 tab PO DAILY@79907/22/22 07/22/22 History (formulary)] [place]-3/Dha/Epa/Fish Oil [Fish Oil 1 cap PO BID@799,199907/22/22 07/22/22 History 1,000 mg Softgel] Ondansetron [Zofran] 4 mg PO Q8H PRN 07/22/22 07/22/22 History Pantoprazole [Protonix] 40 mg PO DAILY@0800 07/22/22 07/22/22 History Pembrolizumab [Keytruda] 1 dose IV Q21D 07/22/22 07/22/22 History Prochlorperazine [Compazine] 10 mg PO Q6H PRN 07/22/22 07/22/22 History Simethicone [Gas-X] 125 mg PO QID PRN 07/22/22 07/22/22 History gemfibroziL [Lopid] 600 mg PO BID@0800,1200 07/22/22 07/22/22 History glipiZIDE [Glucotrol] 10 mg PO BID@0800,1200 07/22/22 07/22/22 History metFORMIN HCL [Glucophage] 500 mg PO BID@0800,2000 07/22/22 07/22/22 History methocarbamoL [Robaxin-750] 750 mg PO BID PRN 07/22/22 07/22/22 History Allergies Allergy/AdvReac Type Severity Reaction Status Date / Time adhesive Allergy Rash/Hives Verified 07/22/22 13:55 steri stips Allergy Rash/Hives Uncoded 07/22/22 13:55 Physical Exam Vitals: Vital Signs Temp Pulse Pulse Resp BP BP Pulse Ox 07/23/22 04:00 97.9 F 113 H 18 122/74 98 07/23/22 01:59 115 H 07/23/22 00:25 98.2 F 109 H 18 119/75 98 07/22/22 21:14 100 07/22/22 21:06 106 H 07/22/22 20:15 98.3 F 103 H 18 101/68 98 07/22/22 20:00 115 H 07/22/22 19:37 120 H 24 117/61 98 07/22/22 19:00 100.5 F H 07/22/22 18:37 100.1 F H 116 H 24 112/81 100 07/22/22 15:30 108 H 07/22/22 15:25 98 07/22/22 15:24 104 H 07/22/22 14:42 98 20 115/64 100 07/22/22 13:00 109/63 07/22/22 12:15 99 20 101/70 07/22/22 11:48 103 H 22 92/63 100 07/22/22 11:04 98.2 F 108 H 22 100/60 98 Intake and Output 07/22/22 07/23/22 07/23/22 22:59 06:59 14:59 Intake Total 540 Output Total 1 Balance 540 -1 Intake: Oral 540 Output: Urine/Stool Mix 1 Other: Voiding Method Bedside Commode Bedside Commode Diaper Diaper # Voids 1 # Bowel Movements 2 Weight 116 kg Results CBC & Chem 7: 07/23/22 06:41 07/23/22 06:41 Labs: Abnormal Lab Results - Last 24 Hours (Table) 07/22/22 07/22/22 07/22/22 Range/Units 11:19 11:19 11:19 WBC 0.6 L* (3.8-10.6) k/uL RBC 3.56 L (3.80-5.40) m/uL Hct 33.9 L (34.0-46.0) % PT 12.5 H (9.0-12.0) sec INR 1.2 H (<1.2) APTT 21.0 L (22.0-30.0) sec Sodium 130 L (137-145) mmol/L Potassium (3.5-5.1) mmol/L Carbon Dioxide 19 L (22-30) mmol/L Glucose 424 H (74-99) mg/dL POC Glucose (mg/dL) (70-110) mg/dL Hemoglobin A1c (0.0-6.0) % Plasma Lactic Acid Garcia (0.7-2.0) mmol/L Calcium 7.0 L (8.4-10.2) mg/dL Phosphorus (2.5-4.5) mg/dL Magnesium 1.5 L (1.6-2.3) mg/dL Total Bilirubin 3.0 H (0.2-1.3) mg/dL ALT 39 H (4-34) U/L Total Protein 5.1 L (6.3-8.2) g/dL Albumin 2.8 L (3.5-5.0) g/dL 07/22/22 07/22/22 07/22/22 Range/Units 11:19 15:24 15:24 WBC (3.8-10.6) k/uL RBC (3.80-5.40) m/uL Hct (34.0-46.0) % PT (9.0-12.0) sec INR (<1.2) APTT (22.0-30.0) sec Sodium 132 L (137-145) mmol/L Potassium (3.5-5.1) mmol/L Carbon Dioxide 19 L (22-30) mmol/L Glucose 425 H (74-99) mg/dL POC Glucose (mg/dL) (70-110) mg/dL Hemoglobin A1c (0.0-6.0) % Plasma Lactic Acid Garcia 3.8 H* (0.7-2.0) mmol/L Calcium (8.4-10.2) mg/dL Phosphorus 1.8 L (2.5-4.5) mg/dL Magnesium (1.6-2.3) mg/dL Total Bilirubin (0.2-1.3) mg/dL ALT (4-34) U/L Total Protein (6.3-8.2) g/dL Albumin (3.5-5.0) g/dL 07/22/22 07/22/22 07/22/22 Range/Units 16:41 18:20 18:33 WBC (3.8-10.6) k/uL RBC (3.80-5.40) m/uL Hct (34.0-46.0) % PT (9.0-12.0) sec INR (<1.2) APTT (22.0-30.0) sec Sodium (137-145) mmol/L Potassium (3.5-5.1) mmol/L Carbon Dioxide (22-30) mmol/L Glucose (74-99) mg/dL POC Glucose (mg/dL) 425 H 427 H (70-110) mg/dL Hemoglobin A1c 10.8 H (0.0-6.0) % Plasma Lactic Acid Garcia (0.7-2.0) mmol/L Calcium (8.4-10.2) mg/dL Phosphorus (2.5-4.5) mg/dL Magnesium (1.6-2.3) mg/dL Total Bilirubin (0.2-1.3) mg/dL ALT (4-34) U/L Total Protein (6.3-8.2) g/dL Albumin (3.5-5.0) g/dL 07/22/22 07/22/22 07/23/22 Range/Units 19:40 22:24 00:31 WBC (3.8-10.6) k/uL RBC (3.80-5.40) m/uL Hct (34.0-46.0) % PT (9.0-12.0) sec INR (<1.2) APTT (22.0-30.0) sec Sodium 131 L (137-145) mmol/L Potassium (3.5-5.1) mmol/L Carbon Dioxide 19 L (22-30) mmol/L Glucose 427 H (74-99) mg/dL POC Glucose (mg/dL) 409 H 392 H (70-110) mg/dL Hemoglobin A1c (0.0-6.0) % Plasma Lactic Acid Garcia (0.7-2.0) mmol/L Calcium (8.4-10.2) mg/dL Phosphorus 1.9 L (2.5-4.5) mg/dL Magnesium (1.6-2.3) mg/dL Total Bilirubin (0.2-1.3) mg/dL ALT (4-34) U/L Total Protein (6.3-8.2) g/dL Albumin (3.5-5.0) g/dL 07/23/22 07/23/22 07/23/22 Range/Units 06:14 06:41 06:41 WBC (3.8-10.6) k/uL RBC 3.53 L (3.80-5.40) m/uL Hct (34.0-46.0) % PT (9.0-12.0) sec INR (<1.2) APTT (22.0-30.0) sec Sodium 132 L (137-145) mmol/L Potassium 3.4 L (3.5-5.1) mmol/L Carbon Dioxide (22-30) mmol/L Glucose 275 H (74-99) mg/dL POC Glucose (mg/dL) 289 H (70-110) mg/dL Hemoglobin A1c (0.0-6.0) % Plasma Lactic Acid Garcia (0.7-2.0) mmol/L Calcium 6.7 L (8.4-10.2) mg/dL Phosphorus (2.5-4.5) mg/dL Magnesium 2.4 H (1.6-2.3) mg/dL Total Bilirubin 1.5 H (0.2-1.3) mg/dL ALT (4-34) U/L Total Protein 5.1 L (6.3-8.2) g/dL Albumin 2.6 L (3.5-5.0) g/dL Assessment and Plan Assessment: 1. Febrile neutropenia 2. COPD exacerbation 3. DKA 4. Severe neutropenia/leucopenia due to chemotherapy 5. Mild anemia due to chemotherapy 6. Intractable N/V due to chemotherapy 7. Mucositis due to chemotherapy 8. Diarrhea Plan: Ms. Pimentel is a very pleasant 56-year-old female with recently found early stage breast cancer, triple negative, with expiratory lymph node involvement, status post cycle 1 of what sounds like Keytruda/Carboplatin/Taxol. She is here for intractable vomiting, diarrhea, and shortness of breath. Being treated for COPD exacerbation, febrile neutropenia with severe leukopenia and neutropenia, and DKA. - Agree with broad-spectrum antibiotics, vancomycin and cefepime - Would add Flagyl due to diarrhea - Would obtain stool studies and C. diff due to underlying diarrhea - Avoid oral medication if possible - Continue to monitor CBC closely, hold off on G-CSF for now - Anti-emetics - Consider CT of the abdomen and pelvis - Continue supportive care - Hold chemotherapy while inpatient - She will need to follow-up with her oncologist prior to resuming chemotherapy outpatient Discussed with patient she is agreeable to the plan. Discussed with nursing staff. All of their questions were answered.
[2022-07-23 11:31] LABS: Glucose,Whole Blood 260 mg/dL (70-110)
[2022-07-23] MEDS: metroNIDAZOLE-NS PMX 500 MG in SALINE 1 100ML.BAG IVPB SCH ×2 (12:43→16:54)
--- NOTE | 2022-07-23 12:50 | P.PN ---
Subjective Progress Note Date: 07/23/22 Hospital Course: 86-year-old female patient with a past medical history significant for COPD/asthma not on home oxygen, nonsmoker, hypertension, diabetes mellitus type 2, breast cancer in the right breast receiving chemotherapy currently presented with shortness of breath, wheezing, productive cough. In the ER, Labs showed White cell count was 0.6, PT 12.5, INR 1.2, sodium 132, bicarb 19, glucose 425, lactic acid 3.8, calcium 7.0, phosphorus 1.8, magnesium 1.5. Chest x-ray poor inspiratory film no definite infiltrates noted. Patient received neb treatments, IV vancomycin and IV cefepime in the ER. Patient admitted for sepsis, febrile neutropenia, COPD exacerbation. Oncology and ID consulted. Subjective: Patient seen and examined at bedside. No acute events overnight. She claims that he continues to have some shortness of breath. Denies any chest pain, palpitations. She is also having abdominal pain, periumbilical, occasional nausea, denies any vomiting. She denies any urinary or bowel complaints. Pertinent positives and negatives as discussed above, a complete review of systems was performed and all other systems are negative. Vitals Signs Reviewed. General: nontoxic, no distress, appears at stated age Derm: warm, dry Head: atraumatic, normocephalic, symmetric Eyes: EOMI, no lid lag, anicteric sclera Mouth: no lip lesion, mucus membranes moist Cardiovascular: S1S2 reg, no murmur Lungs: CTA bilateral, no rhonchi, no rales , no accessory muscle use, supplemental oxygen Abdominal: soft, mild periumbilical tenderness to palpation, no guarding, no ap preciable organomegaly Ext: no gross muscle atrophy, no edema, no contractures Neuro: CN II-XI grossly intact, no focal neuro deficits Psych: Alert, oriented, appropriate affect Data Reviewed Today: Pertinent Labs: WBC 0.6, hemoglobin 11.5, platelet 172, sodium 133, potassium 3.4, blood sugars range between 260 249, magnesium 2.4 Assessment and Plan: Patient is critically ill, needs close monitoring and IV antibiotics. Active: Sepsis Febrile neutropenia Breast cancer status post cycle 1 chemotherapy COPD exacerbation Acute hypoxic respiratory failure Hypokalemia Poorly controlled Type 2 diabetes with hyperglycemia, A1c 10.8 -Oncology note reviewed: Recommended continued IV antibiotics, also started on 500 mg IV Flagyl every 8 hours -Continue cefepime 2 g IV every 8 hours, and vancomycin IV, dosed based on trough levels -Monitor renal function with BMP, and a high risk for renal toxicity from vancomycin -Infectious disease consulted -CT abdomen and pelvis ordered to identify a source -Blood cultures pending -Sputum culture ordered, Legionella antigen ordered -UA ordered -Continue bronchodilators and IV steroids -40 mEq IV potassium ordered -10 units Levemir ordered for now, continue 10 units Levemir daily, sliding scale insulin Resolved: Hypomagnesemia Diabetic ketoacidosis Chronic: Dyslipidemia DVT ppx: Lovenox Code status: Full code Anticipated discharge place: Pending clinical course Anticipated discharge time: Pending clinical course Objective - Vital Signs Vital signs: Vital Signs Temp 97.9 F 07/23/22 04:00 Pulse 113 H 07/23/22 08:00 Resp 20 07/23/22 08:00 BP 133/66 07/23/22 08:00 Pulse Ox 96 07/23/22 09:20 FiO2 Intake & Output 07/22/22 07/23/22 07/23/22 18:59 06:59 18:59 Intake Total 540 120 Output Total 1 550 Balance 539 -430 Weight 116 kg 116 kg 116 kg Intake: Oral 540 120 Output: Stool 250 Urine/Stool Mix 1 Emesis 300 Other: Voiding Method Bedside Commode Bedside Commode Diaper Diaper # Voids 1 # Bowel Movements 2 - Labs CBC & Chem 7: 07/23/22 06:41 07/23/22 06:41 Labs: Abnormal Lab Results - Last 24 Hours (Table) 07/22/22 07/22/22 07/22/22 Range/Units 15:24 15:24 16:41 WBC (3.8-10.6) k/uL RBC (3.80-5.40) m/uL Sodium 132 L (137-145) mmol/L Potassium (3.5-5.1) mmol/L Carbon Dioxide 19 L (22-30) mmol/L Glucose 425 H (74-99) mg/dL POC Glucose (mg/dL) 425 H (70-110) mg/dL Hemoglobin A1c (0.0-6.0) % Calcium (8.4-10.2) mg/dL Phosphorus 1.8 L (2.5-4.5) mg/dL Magnesium (1.6-2.3) mg/dL Total Bilirubin (0.2-1.3) mg/dL C-Reactive Protein (<1.0) mg/dL Total Protein (6.3-8.2) g/dL Albumin (3.5-5.0) g/dL 07/22/22 07/22/22 07/22/22 Range/Units 18:20 18:33 19:40 WBC (3.8-10.6) k/uL RBC (3.80-5.40) m/uL Sodium 131 L (137-145) mmol/L Potassium (3.5-5.1) mmol/L Carbon Dioxide 19 L (22-30) mmol/L Glucose 427 H (74-99) mg/dL POC Glucose (mg/dL) 427 H (70-110) mg/dL Hemoglobin A1c 10.8 H (0.0-6.0) % Calcium (8.4-10.2) mg/dL Phosphorus 1.9 L (2.5-4.5) mg/dL Magnesium (1.6-2.3) mg/dL Total Bilirubin (0.2-1.3) mg/dL C-Reactive Protein (<1.0) mg/dL Total Protein (6.3-8.2) g/dL Albumin (3.5-5.0) g/dL 07/22/22 07/23/22 07/23/22 Range/Units 22:24 00:31 06:14 WBC (3.8-10.6) k/uL RBC (3.80-5.40) m/uL Sodium (137-145) mmol/L Potassium (3.5-5.1) mmol/L Carbon Dioxide (22-30) mmol/L Glucose (74-99) mg/dL POC Glucose (mg/dL) 409 H 392 H 289 H (70-110) mg/dL Hemoglobin A1c (0.0-6.0) % Calcium (8.4-10.2) mg/dL Phosphorus (2.5-4.5) mg/dL Magnesium (1.6-2.3) mg/dL Total Bilirubin (0.2-1.3) mg/dL C-Reactive Protein (<1.0) mg/dL Total Protein (6.3-8.2) g/dL Albumin (3.5-5.0) g/dL 07/23/22 07/23/22 07/23/22 Range/Units 06:41 06:41 11:29 WBC 0.6 L* (3.8-10.6) k/uL RBC 3.53 L (3.80-5.40) m/uL Sodium 132 L (137-145) mmol/L Potassium 3.4 L (3.5-5.1) mmol/L Carbon Dioxide (22-30) mmol/L Glucose 275 H (74-99) mg/dL POC Glucose (mg/dL) 260 H (70-110) mg/dL Hemoglobin A1c (0.0-6.0) % Calcium 6.7 L (8.4-10.2) mg/dL Phosphorus (2.5-4.5) mg/dL Magnesium 2.4 H (1.6-2.3) mg/dL Total Bilirubin 1.5 H (0.2-1.3) mg/dL C-Reactive Protein 36.5 H (<1.0) mg/dL Total Protein 5.1 L (6.3-8.2) g/dL Albumin 2.6 L (3.5-5.0) g/dL
--- NOTE | 2022-07-23 12:53 | CT ---
EXAMINATION TYPE: CT abdomen pelvis wo/w con DATE OF EXAM: 07/23/2022 COMPARISON: None HISTORY: abd pain,sepsis. CT DLP: 4361.2 mGycm Automated exposure control for dose reduction was used. TECHNIQUE: Helical acquisition of images was performed from the lung bases through the pelvis. CONTRAST: Performed without Oral Contrast and with IV Contrast, patient injected with 100 mL of Isovue 300. FINDINGS: The visualized lung bases are clear and there is no infiltrate or effusion. The gallbladder is prominent in size and there are a few scattered gallstones but there is no wall th ickening or pericholecystic fluid. There is no biliary ductal dilatation. There is no focal mass or organomegaly involving the liver, pancreas or spleen. There is mild hazy de nsity in the pancreatic head raising the question of mild pancreatitis correlation is recommended. The caliber the abdominal aorta is normal. The kidneys excrete contrast promptly and symmetrically an d there is no solid renal mass or hydronephrosis. The left side of the abdomen there are a few loops of dilated small bowel loops some of which appear to contain fecal matter. Findings raise the question of a focal ileus or closed loop obstruction. The re is no evidence of bowel wall ischemia. There is a small ventral hernia containing small bowel loops but there is no evidence for bowel ische antwon or strangulation within the hernia. There is marked fat within the wall of the cecum and ascending colon which can be seen in obesity or chronic inflammatory disease such as chronic ulcerative colitis or Crohn's disease. There is no pelvic mass, free fluid or adenopathy within the pelvis IMPRESSION: 1. Cluster of enlarged small bowel loops in left abdomen, which contain fecal matter raising the ques tion of a small bowel focal ileus or closed loop obstruction.. There is no evidence of bowel ischemia . 2. Ventral hernia containing small bowel loops with no evidence of bowel strangulation or ischemia wi thin the hernia. 3. Abnormal cecum and ascending colon wall as described above. 4. Distended gallbladder with a few scattered gallstones but no pericholecystic fluid or gallbladder wall thickening. 5. Mild hazy density adjacent to the pancreatic head raising the question of pancreatitis and clinica l correlation is recommended.
[2022-07-23] MEDS ORDERED: INSULIN DETEMIR (LEVEMIR) 100 UNIT/ML SYR SQ ONE (13:30)
[2022-07-23] MEDS: POTASSIUM CHLORIDE 10 MEQ in WATER FOR INJECTION 1 100ML.BAG IVPB SCH ×4 (14:59→20:15)
[2022-07-23 16:06] LABS: Glucose,Whole Blood 237 mg/dL (70-110)
[2022-07-23] MEDS: methylPREDNISolone SOD SUCCI 40 MG/ML 1 ML VIAL IV SCH (16:54)
[2022-07-23 20:08] LABS: Glucose,Whole Blood 247 mg/dL (70-110)
[2022-07-23] MEDS: ATORVASTATIN 40 MG TAB PO SCH (20:15)
--- NOTE | 2022-07-23 20:57 | P.CONS ---
History of Present Illness - Reason for Consult Consult date: 07/23/22 Febrile neutropenia Requesting physician: Tayo Miller - Chief Complaint Vomiting diarrhea, not feeling well x 1 week - History of Present Illness Patient is a 56-year female with a past medical history taken for diabetes mellitus hypertension COPD patient did have a history of right breast cancer on chemotherapy last chemo was about a week ago on the Monday 2 days later on patient started not feeling well symptom has been mostly nausea and vomiting and did have some diarrhea patient also complaining of difficulty in breathing that the pain is getting worse the day before presentation to the hospital patient denies having any chest pain she did have a cough but more intense below sputum production and no urinary symptoms with the symptom the patient has been evaluated on arrival to the ER patient was afebrile subsequently did spike a fever of 100.5 F patient did have a leukopenia and neutropenia kidney function has been normal bilirubin was mildly elevated however rest of the liver enzymes are normal CRP 36.5 procalcitonin 6.04 serum acetone was negative blood cultures obtained which are currently pending patient did have a chest x-ray no acute cardiopulmonary disease process patient did have a CT of abdominal pelvis which did show some enlarged small bowel loops in the left abdominal concerning for bowel obstruction no ischemia ventral hernia contains small bowel loops with no evidence of strangulation or ischemia distended gallbladder but no pericholecystic fluid or gallbladder wall thickening patient admitted with a past metabolic infectious disease was consulted for further management Review of Systems Positive point has been mentioned in the HPI rest of the systems are negative Past Medical History Past Medical History: Asthma, Cancer, COPD, Diabetes Mellitus, Hypertension History of Any Multi-Drug Resistant Organisms: None Reported Past Surgical History: Heart Catheterization Additional Past Surgical History / Comment(s): port for chemo, abcessed teeth Past Psychological History: Depression, PTSD Smoking Status: Former smoker Past Alcohol Use History: None Reported Past Drug Use History: None Reported Medications and Allergies Home Medications Medication Instructions Recorded Confirmed Type ALPRAZolam [Xanax] 0.25 mg PO TID PRN 07/22/22 07/22/22 History Acetaminophen Tab [Tylenol Tab] 500 mg PO QID PRN 07/22/22 07/22/22 History Albuterol Sulfate [Albuterol 2 puff INHALATION RT-Q4H PRN 07/22/22 07/22/22 History Sulfate Hfa] Ammonium Lactate Lotion 1 applic TOPICAL DAILY 07/22/22 07/22/22 History [Lac-Hydrin 12% Lotion] Aspirin 81 mg PO DAILY@79907/22/22 07/22/22 History Atorvastatin [Lipitor] 40 mg PO HS@199907/22/22 07/22/22 History Cetirizine HCl [Zyrtec] 10 mg PO DAILY@79907/22/22 07/22/22 History Cholecalciferol [Vitamin D3 (25 75 mcg PO DAILY@79907/22/22 07/22/22 History Mcg = 1000 Iu)] Citalopram Hydrobromide [CeleXA] 40 mg PO DAILY@79907/22/22 07/22/22 History Complete Advanced Complete 1 tab PO DAILY@79907/22/22 07/22/22 History Cyanocobalamin (Vitamin B-12) 1,000 mcg PO DAILY@79907/22/22 07/22/22 History [Vitamin B-12] DULoxetine HCL [Cymbalta] 30 mg PO BID@799,199907/22/22 07/22/22 History Dulaglutide [Trulicity] 1.5 mg SQ FR 07/22/22 07/22/22 History Ferrous Sulfate [Feosol] 325 mg PO DAILY@79907/22/22 07/22/22 History Fluticasone Propionate 110 Mcg 2 puff INHALATION RT-BID PRN 07/22/22 07/22/22 History [Flovent 110 Mcg Inhaler] Furosemide [Lasix] 40 mg PO DAILY@79907/22/22 07/22/22 History Ibuprofen [Motrin] 400 mg PO QID PRN 07/22/22 07/22/22 History Loratadine [Claritin] 10 mg PO DAILY PRN 07/22/22 07/22/22 History Multivitamins, Thera [Multivitamin 1 tab PO DAILY@79907/22/22 07/22/22 History (formulary)] Amity-3/Dha/Epa/Fish Oil [Fish Oil 1 cap PO BID@799,199907/22/22 07/22/22 History 1,000 mg Softgel] Ondansetron [Zofran] 4 mg PO Q8H PRN 07/22/22 07/22/22 History Pantoprazole [Protonix] 40 mg PO DAILY@0800 07/22/22 07/22/22 History Pembrolizumab [Keytruda] 1 dose IV Q21D 07/22/22 07/22/22 History Prochlorperazine [Compazine] 10 mg PO Q6H PRN 07/22/22 07/22/22 History Simethicone [Gas-X] 125 mg PO QID PRN 07/22/22 07/22/22 History gemfibroziL [Lopid] 600 mg PO BID@0800,1200 07/22/22 07/22/22 History glipiZIDE [Glucotrol] 10 mg PO BID@0800,1200 07/22/22 07/22/22 History metFORMIN HCL [Glucophage] 500 mg PO BID@0800,2000 07/22/22 07/22/22 History methocarbamoL [Robaxin-750] 750 mg PO BID PRN 07/22/22 07/22/22 History Allergies Allergy/AdvReac Type Severity Reaction Status Date / Time adhesive Allergy Rash/Hives Verified 07/22/22 13:55 steri stips Allergy Rash/Hives Uncoded 07/22/22 13:55 Physical Exam Vitals: Vital Signs Temp Pulse Pulse Resp BP BP Pulse Ox 07/23/22 09:20 96 07/23/22 08:00 113 H 20 133/66 07/23/22 04:00 97.9 F 113 H 18 122/74 98 07/23/22 01:59 115 H 07/23/22 00:25 98.2 F 109 H 18 119/75 98 07/22/22 21:14 100 07/22/22 21:06 106 H 07/22/22 20:15 98.3 F 103 H 18 101/68 98 07/22/22 20:00 115 H 07/22/22 19:37 120 H 24 117/61 98 07/22/22 19:00 100.5 F H 07/22/22 18:37 100.1 F H 116 H 24 112/81 100 07/22/22 15:30 108 H 07/22/22 15:25 98 07/22/22 15:24 104 H 07/22/22 14:42 98 20 115/64 100 07/22/22 13:00 109/63 Intake and Output 07/22/22 07/23/22 07/23/22 22:59 06:59 14:59 Intake Total 540 120 Output Total 1 550 Balance 540 -1 -430 Intake: Oral 540 120 Output: Stool 250 Urine/Stool Mix 1 Emesis 300 Other: Voiding Method Bedside Commode Bedside Commode Bedside Commode Diaper Diaper Diaper # Voids 1 # Bowel Movements 2 Weight 116 kg 116 kg GENERAL DESCRIPTION: Middle-aged female lying in bed, no distress. No tachypnea or accessory muscle of respiration use. HEENT: Shows Pallor , no scleral icterus. Oral mucous membrane is dry. NECK: Trachea central, no thyromegaly. LUNGS: Unlabored breathing. Decreased breath sounds at bases HEART: S1, S2, regular rate and rhythm. No loud murmur ABDOMEN: Soft, no tenderness , guarding or rigidity, no organomegaly EXTREMITIES: No edema of feet. SKIN: No rash, no masses palpable. NEUROLOGICAL: The patient is awake, alert, oriented x3, mood and affect normal. Results CBC & Chem 7: 07/23/22 06:41 07/23/22 06:41 Labs: Abnormal Lab Results - Last 24 Hours (Table) 07/22/22 07/22/22 07/22/22 Range/Units 11:19 11:19 15:24 WBC 0.6 L* (3.8-10.6) k/uL RBC 3.56 L (3.80-5.40) m/uL Hct 33.9 L (34.0-46.0) % PT 12.5 H (9.0-12.0) sec INR 1.2 H (<1.2) APTT 21.0 L (22.0-30.0) sec Sodium (137-145) mmol/L Potassium (3.5-5.1) mmol/L Carbon Dioxide (22-30) mmol/L Glucose (74-99) mg/dL POC Glucose (mg/dL) (70-110) mg/dL Hemoglobin A1c (0.0-6.0) % Calcium (8.4-10.2) mg/dL Phosphorus 1.8 L (2.5-4.5) mg/dL Magnesium (1.6-2.3) mg/dL Total Bilirubin (0.2-1.3) mg/dL C-Reactive Protein (<1.0) mg/dL Total Protein (6.3-8.2) g/dL Albumin (3.5-5.0) g/dL 07/22/22 07/22/22 07/22/22 Range/Units 15:24 16:41 18:20 WBC (3.8-10.6) k/uL RBC (3.80-5.40) m/uL Hct (34.0-46.0) % PT (9.0-12.0) sec INR (<1.2) APTT (22.0-30.0) sec Sodium 132 L (137-145) mmol/L Potassium (3.5-5.1) mmol/L Carbon Dioxide 19 L (22-30) mmol/L Glucose 425 H (74-99) mg/dL POC Glucose (mg/dL) 425 H 427 H (70-110) mg/dL Hemoglobin A1c (0.0-6.0) % Calcium (8.4-10.2) mg/dL Phosphorus (2.5-4.5) mg/dL Magnesium (1.6-2.3) mg/dL Total Bilirubin (0.2-1.3) mg/dL C-Reactive Protein (<1.0) mg/dL Total Protein (6.3-8.2) g/dL Albumin (3.5-5.0) g/dL 07/22/22 07/22/22 07/22/22 Range/Units 18:33 19:40 22:24 WBC (3.8-10.6) k/uL RBC (3.80-5.40) m/uL Hct (34.0-46.0) % PT (9.0-12.0) sec INR (<1.2) APTT (22.0-30.0) sec Sodium 131 L (137-145) mmol/L Potassium (3.5-5.1) mmol/L Carbon Dioxide 19 L (22-30) mmol/L Glucose 427 H (74-99) mg/dL POC Glucose (mg/dL) 409 H (70-110) mg/dL Hemoglobin A1c 10.8 H (0.0-6.0) % Calcium (8.4-10.2) mg/dL Phosphorus 1.9 L (2.5-4.5) mg/dL Magnesium (1.6-2.3) mg/dL Total Bilirubin (0.2-1.3) mg/dL C-Reactive Protein (<1.0) mg/dL Total Protein (6.3-8.2) g/dL Albumin (3.5-5.0) g/dL 07/23/22 07/23/22 07/23/22 Range/Units 00:31 06:14 06:41 WBC (3.8-10.6) k/uL RBC (3.80-5.40) m/uL Hct (34.0-46.0) % PT (9.0-12.0) sec INR (<1.2) APTT (22.0-30.0) sec Sodium 132 L (137-145) mmol/L Potassium 3.4 L (3.5-5.1) mmol/L Carbon Dioxide (22-30) mmol/L Glucose 275 H (74-99) mg/dL POC Glucose (mg/dL) 392 H 289 H (70-110) mg/dL Hemoglobin A1c (0.0-6.0) % Calcium 6.7 L (8.4-10.2) mg/dL Phosphorus (2.5-4.5) mg/dL Magnesium 2.4 H (1.6-2.3) mg/dL Total Bilirubin 1.5 H (0.2-1.3) mg/dL C-Reactive Protein 36.5 H (<1.0) mg/dL Total Protein 5.1 L (6.3-8.2) g/dL Albumin 2.6 L (3.5-5.0) g/dL 07/23/22 07/23/22 Range/Units 06:41 11:29 WBC 0.6 L* (3.8-10.6) k/uL RBC 3.53 L (3.80-5.40) m/uL Hct (34.0-46.0) % PT (9.0-12.0) sec INR (<1.2) APTT (22.0-30.0) sec Sodium (137-145) mmol/L Potassium (3.5-5.1) mmol/L Carbon Dioxide (22-30) mmol/L Glucose (74-99) mg/dL POC Glucose (mg/dL) 260 H (70-110) mg/dL Hemoglobin A1c (0.0-6.0) % Calcium (8.4-10.2) mg/dL Phosphorus (2.5-4.5) mg/dL Magnesium (1.6-2.3) mg/dL Total Bilirubin (0.2-1.3) mg/dL C-Reactive Protein (<1.0) mg/dL Total Protein (6.3-8.2) g/dL Albumin (3.5-5.0) g/dL Assessment and Plan Plan: 1patient was in the hospital with febrile neutropenia predominantly has GI symptoms of nausea and vomiting also complaining of shortness of breath with initial chest x-raymedical abnormality patient did have a CT of abdominal pelvis completed this afternoon with evidence of small bowel obstruction ventral hernia but no evidence of any strangulation more likely dealing with abdominal s ource and need to cover for the enteric gram-negative both aerobes and anaerobes 2-patient benefit from general surgery evaluation 3-patient to continue cefepime and Flagyl while waiting for the culture to finalize We will follow on clinical condition and cultures to further adjust medication if needed Thank you for this consultation we will follow the patient along with you Time with Patient: Greater than 30
[2022-07-24] MEDS: methylPREDNISolone SOD SUCCI 40 MG/ML 1 ML VIAL IV SCH ×4 (00:05→17:23)
[2022-07-24] MEDS: metroNIDAZOLE-NS PMX 500 MG in SALINE 1 100ML.BAG IVPB SCH ×3 (00:05→17:23)
[2022-07-24] MEDS: ONDANSETRON 4 MG/2 ML VIAL IVP PRN (05:03)
[2022-07-24] MEDS: VANCOMYCIN 1,750 MG in SODIUM CHLORIDE 0.9% 500 ML 500 ML IVPB SCH ×2 (05:06→17:23)
[2022-07-24 05:55] LABS: Glucose,Whole Blood 260 mg/dL (70-110)
[2022-07-24] MEDS: CEFEPIME 2 GM in SODIUM CHLORIDE 0.9% 100 ML IVPB SCH ×3 (06:03→21:57)
[2022-07-24] MEDS: SODIUM CHLORIDE 0.9% 1,000 ML IV SCH ×2 (06:04→20:42)
[2022-07-24] MEDS: INSULIN ASPART (NovoLOG) 100 UNIT/ML VIAL SQ SCH ×4 (06:41→20:51)
[2022-07-24] MEDS ORDERED: INSULIN DETEMIR (LEVEMIR) 100 UNIT/ML SYR SQ SCH (07:00)
[2022-07-24] MEDS: PROCHLORPERAZINE INJ 10 MG/2 ML VIAL IVP PRN ×2 (08:46→17:23)
[2022-07-24 08:56] LABS: HCT 30.5 % (34.0-46.0); HGB 10.4 gm/dL (11.4-16.0); MCH 32.1 pg (25.0-35.0); MCV 94.3 fL (80.0-100.0); Mean Platelet Volume 10.2; Platelet Count 151 k/uL (150-450); RBC 3.23 m/uL (3.80-5.40)
[2022-07-24] MEDS: IPRATROPIUM 0.5 MG/2.5 ML NEBU INHALATION SCH ×4 (09:00→21:03)
[2022-07-24] MEDS: ALBUTEROL NEBULIZED 2.5 MG/3 ML INHALATION SCH ×4 (09:00→21:03)
[2022-07-24 09:09] LABS: WBC 0.4 k/uL (3.8-10.6)
[2022-07-24 09:11] LABS: African American GFR (CKD) >90 (>60 ml/min/1.73 sqM); Anion Gap 13 mmol/L; Blood Urea Nitrogen 12 mg/dL (7-17); Calcium 6.8 mg/dL (8.4-10.2); Carbon Dioxide 19 mmol/L (22-30); Chloride 104 mmol/L (98-107); Glucose 231 mg/dL (74-99); Non-African American GFR(CKD) >90 (>60 ml/min/1.73 sqM); Potassium 3.6 mmol/L (3.5-5.1); Sodium 136 mmol/L (137-145)
--- NOTE | 2022-07-24 09:55 | P.GSCN ---
History of Present Illness Consult date: 07/24/22 Reason for Consult: Small bowel obstruction History of present illness: 56-year-old female came to the hospital complaining of shortness of breath, weakness, confusion, and fevers. T-max 102.[address] a CT abdomen and pelvis showing dilated small bowel loops and umbilical hernia containing bowel loops. Patient recently started chemotherapy for triple negative breast cancer. Patient has been having diarrhea as well. Some vomiting as stated. She is very thirsty. She denies abdominal pain. Patient was found have leukopenia and neutropenia on admission. Being treated for neutropenic sepsis. Review of Systems The patient denies any acute changes in vision or hearing, no dysphagia or odynophagia, no chest pain no dysuria or hematuria, no headache, no runny nose, no rectal bleeding or melena, no unexplained weight loss Past Medical History Past Medical History: Asthma, Cancer, COPD, Diabetes Mellitus, Hypertension History of Any Multi-Drug Resistant Organisms: None Reported Past Surgical History: Heart Catheterization Additional Past Surgical History / Comment(s): port for chemo, abcessed teeth Past Psychological History: Depression, PTSD Smoking Status: Former smoker Past Alcohol Use History: None Reported Past Drug Use History: None Reported Medications and Allergies Home Medications Medication Instructions Recorded Confirmed Type ALPRAZolam [Xanax] 0.25 mg PO TID PRN 07/22/22 07/22/22 History Acetaminophen Tab [Tylenol Tab] 500 mg PO QID PRN 07/22/22 07/22/22 History Albuterol Sulfate [Albuterol 2 puff INHALATION RT-Q4H PRN 07/22/22 07/22/22 History Sulfate Hfa] Ammonium Lactate Lotion 1 applic TOPICAL DAILY 07/22/22 07/22/22 History [Lac-Hydrin 12% Lotion] Aspirin 81 mg PO DAILY@79907/22/22 07/22/22 History Atorvastatin [Lipitor] 40 mg PO HS@199907/22/22 07/22/22 History Cetirizine HCl [Zyrtec] 10 mg PO DAILY@79907/22/22 07/22/22 History Cholecalciferol [Vitamin D3 (25 75 mcg PO DAILY@0807/22/22 07/22/22 History Mcg = 1000 Iu)] Citalopram Hydrobromide [CeleXA] 40 mg PO DAILY@79907/22/22 07/22/22 History Complete Advanced Complete 1 tab PO DAILY@79907/22/22 07/22/22 History Cyanocobalamin (Vitamin B-12) 1,000 mcg PO DAILY@79907/22/22 07/22/22 History [Vitamin B-12] DULoxetine HCL [Cymbalta] 30 mg PO BID@799,199907/22/22 07/22/22 History Dulaglutide [Trulicity] 1.5 mg SQ FR 07/22/22 07/22/22 History Ferrous Sulfate [Feosol] 325 mg PO DAILY@79907/22/22 07/22/22 History Fluticasone Propionate 110 Mcg 2 puff INHALATION RT-BID PRN 07/22/22 07/22/22 History [Flovent 110 Mcg Inhaler] Furosemide [Lasix] 40 mg PO DAILY@79907/22/22 07/22/22 History Ibuprofen [Motrin] 400 mg PO QID PRN 07/22/22 07/22/22 History Loratadine [Claritin] 10 mg PO DAILY PRN 07/22/22 07/22/22 History Multivitamins, Thera [Multivitamin 1 tab PO DAILY@79907/22/22 07/22/22 History (formulary)] [place]-3/Dha/Epa/Fish Oil [Fish Oil 1 cap PO BID@08,199907/22/22 07/22/22 History 1,000 mg Softgel] Ondansetron [Zofran] 4 mg PO Q8H PRN 07/22/22 07/22/22 History Pantoprazole [Protonix] 40 mg PO DAILY@79907/22/22 07/22/22 History Pembrolizumab [Keytruda] 1 dose IV Q21D 07/22/22 07/22/22 History Prochlorperazine [Compazine] 10 mg PO Q6H PRN 07/22/22 07/22/22 History Simethicone [Gas-X] 125 mg PO QID PRN 07/22/22 07/22/22 History gemfibroziL [Lopid] 600 mg PO BID@0800,1200 07/22/22 07/22/22 History glipiZIDE [Glucotrol] 10 mg PO BID@0800,1200 07/22/22 07/22/22 History metFORMIN HCL [Glucophage] 500 mg PO BID@0800,2000 07/22/22 07/22/22 History methocarbamoL [Robaxin-750] 750 mg PO BID PRN 07/22/22 07/22/22 History Allergies Allergy/AdvReac Type Severity Reaction Status Date / Time adhesive Allergy Rash/Hives Verified 07/22/22 13:55 steri stips Allergy Rash/Hives Uncoded 07/22/22 13:55 Surgical - Exam Vital Signs Temp Pulse Resp BP Pulse Ox 98.2 F 108 H 22 100/60 98 07/22/22 11:04 07/22/22 11:04 07/22/22 11:04 07/22/22 11:04 07/22/22 11:04 Physical exam: General: Well-developed, well-nourished HEENT: Normocephalic, sclerae nonicteric Abdomen: Mild distention, reducible umbilical hernia, no appreciable tenderness Extremities: No edema Neuro: Alert and oriented Results - Labs 07/24/22 07:48 07/24/22 07:48 Abnormal Lab Results - Last 24 Hours (Table) 07/23/22 07/23/22 07/23/22 Range/Units 06:41 11:12 11:29 WBC (3.8-10.6) k/uL RBC (3.80-5.40) m/uL Hgb (11.4-16.0) gm/dL Hct (34.0-46.0) % ESR 108 H (0-20) mm/hr Sodium (137-145) mmol/L Carbon Dioxide (22-30) mmol/L Glucose (74-99) mg/dL POC Glucose (mg/dL) 260 H (70-110) mg/dL Calcium (8.4-10.2) mg/dL Procalcitonin 6.04 H (0.02-0.09) ng/mL 07/23/22 07/23/22 07/24/22 Range/Units 16:05 20:08 05:54 WBC (3.8-10.6) k/uL RBC (3.80-5.40) m/uL Hgb (11.4-16.0) gm/dL Hct (34.0-46.0) % ESR (0-20) mm/hr Sodium (137-145) mmol/L Carbon Dioxide (22-30) mmol/L Glucose (74-99) mg/dL POC Glucose (mg/dL) 237 H 247 H 260 H (70-110) mg/dL Calcium (8.4-10.2) mg/dL Procalcitonin (0.02-0.09) ng/mL 07/24/22 07/24/22 Range/Units 07:48 07:48 WBC 0.4 L* (3.8-10.6) k/uL RBC 3.23 L (3.80-5.40) m/uL Hgb 10.4 L (11.4-16.0) gm/dL Hct 30.5 L (34.0-46.0) % ESR (0-20) mm/hr Sodium 136 L (137-145) mmol/L Carbon Dioxide 19 L (22-30) mmol/L Glucose 231 H (74-99) mg/dL POC Glucose (mg/dL) (70-110) mg/dL Calcium 6.8 L (8.4-10.2) mg/dL Procalcitonin (0.02-0.09) ng/mL Microbiology - Last 24 Hours (Table) 07/22/22 14:24 Blood Culture - Preliminary Blood No Growth after 24 hours 07/22/22 14:24 Blood Culture - Preliminary Blood No Growth after 24 hours Diabetes panel 07/24/22 Range/Units 07:48 Sodium 136 L (137-145) mmol/L Potassium 3.6 (3.5-5.1) mmol/L Chloride 104 (98-107) mmol/L Carbon Dioxide 19 L (22-30) mmol/L BUN 12 (7-17) mg/dL Creatinine 0.53 (0.52-1.04) mg/dL Glucose 231 H (74-99) mg/dL Calcium 6.8 L (8.4-10.2) mg/dL Calcium panel 07/24/22 Range/Units 07:48 Calcium 6.8 L (8.4-10.2) mg/dL Pituitary panel 07/24/22 Range/Units 07:48 Sodium 136 L (137-145) mmol/L Potassium 3.6 (3.5-5.1) mmol/L Chloride 104 (98-107) mmol/L Carbon Dioxide 19 L (22-30) mmol/L BUN 12 (7-17) mg/dL Creatinine 0.53 (0.52-1.04) mg/dL Glucose 231 H (74-99) mg/dL Calcium 6.8 L (8.4-10.2) mg/dL Adrenal panel 07/24/22 Range/Units 07:48 Sodium 136 L (137-145) mmol/L Potassium 3.6 (3.5-5.1) mmol/L Chloride 104 (98-107) mmol/L Carbon Dioxide 19 L (22-30) mmol/L BUN 12 (7-17) mg/dL Creatinine 0.53 (0.52-1.04) mg/dL Glucose 231 H (74-99) mg/dL Calcium 6.8 L (8.4-10.2) mg/dL Assessment and Plan (1) Ileus Narrative/Plan: 56-year-old female with fevers and neutropenia after initiation of chemotherapy. Continue workup for neutropenic sepsis. CAT scan abdomen reviewed. Suspect ileus at this time. Hernia able to be reduced. Resume clear liquids. Repeat abdominal films tomorrow. Will follow with you. Current Visit: Yes Status: Acute Code(s): K56.7 - ILEUS, UNSPECIFIED SNOMED Code(s): 782013513
[2022-07-24 10:08] LABS: RBC Morphology Normal
[2022-07-24 11:33] LABS: Glucose,Whole Blood 229 mg/dL (70-110)
--- NOTE | 2022-07-24 12:30 | P.PN ---
Subjective Progress Note Date: 07/24/22 Hospital Course: 86-year-old female patient with a past medical history significant for COPD/asthma not on home oxygen, nonsmoker, hypertension, diabetes mellitus type 2, breast cancer in the right breast receiving chemotherapy currently presented with shortness of breath, wheezing, productive cough. In the ER, Labs showed White cell count was 0.6, PT 12.5, INR 1.2, sodium 132, bicarb 19, glucose 425, lactic acid 3.8, calcium 7.0, phosphorus 1.8, magnesium 1.5. Chest x-ray poor inspiratory film no definite infiltrates noted. Patient received neb treatments, IV vancomycin and IV cefepime in the ER. Patient admitted for sepsis, febrile neutropenia, COPD exacerbation. Oncology and ID consulted. Patient also having significant abdominal pain, nausea, vomiting. CT abdomen and pelvis showed possible small bowel focal ileus or closed-loop obstruction, ventral hernia. Surgery was consulted suspect likely ileus. Subjective: Patient seen and examined at bedside. Overnight, patient was febrile, also had several bouts of emesis. Currently she is complaining of some lower abdominal pain, but denies any chest pain or shortness of breath. She denies any wheezing. She claims that she had shortness of breath when she first presented, which has mostly now resolved after bronchodilators and steroids. Pertinent positives and negatives as discussed above, a complete review of systems was performed and all other systems are negative. Vitals Signs Reviewed. General: nontoxic, no distress, appears at stated age Derm: warm, dry Head: atraumatic, normocephalic, symmetric Eyes: EOMI, no lid lag, anicteric sclera Mouth: no lip lesion, mucus membranes moist Cardiovascular: S1S2 reg, no murmur Lungs: CTA bilateral, no rhonchi, no rales , no accessory muscle use, suppleme ntal oxygen Abdominal: soft, mild periumbilical tenderness to palpation, no guarding, no appreciable organomegaly Ext: no gross muscle atrophy, no edema, no contractures Neuro: CN II-XI grossly intact, no focal neuro deficits Psych: Alert, oriented, appropriate affect Data Reviewed Today: Pertinent Labs: WBC 0.4, hemoglobin 10.4, platelet 151, sodium 136, bicarb 19, blood sugars range between 231-[address] report reviewed, shows a large small bowel loops in left abdomen, consistent with small bowel fecal ileus or close loop obstruction, ventral hernia, distended gallbladder with scattered gallstones, possible pancreatitis. Assessment and Plan: Patient is critically ill, needs close monitoring and IV antibiotics. Active: Sepsis Febrile neutropenia Breast cancer status post cycle 1 chemotherapy Possible small bowel obstruction versus ileus COPD exacerbation Acute hypoxic respiratory failure Poorly controlled Type 2 diabetes with hyperglycemia, A1c 10.8 -ID following, CT abdomen and pelvis doesn't show a clear-cut source of infection -Blood cultures pending, sputum cultures pending, urinalysis pending -Continue cefepime 2 g IV every 8 hours, IV Flagyl 500 IV every 8 hours and vancomycin IV, dosed based on trough levels -Monitor renal function with BMP, and a high risk for renal toxicity from vancomycin -Oncology following -Surgery note reviewed, likely ileus, started on clears -Continue bronchodilators and IV steroids -Increased to 15 units Levemir daily, sliding scale insulin Resolved: Hypomagnesemia Diabetic ketoacidosis Hypokalemia Chronic: Dyslipidemia DVT ppx: Lovenox Code status: Full code Anticipated discharge place: Pending clinical course Anticipated discharge time: Pending clinical course Objective - Vital Signs Vital signs: Vital Signs Temp 98.4 F 07/24/22 08:00 Pulse 113 H 07/24/22 12:24 Resp 20 07/24/22 08:00 BP 123/58 07/24/22 08:00 Pulse Ox 95 07/24/22 09:03 FiO2 Intake & Output 07/23/22 07/24/22 07/24/22 18:59 06:59 18:59 Intake Total 1620 540 Output Total 1550 1000 300 Balance 70 -460 -300 Weight 116 kg Intake: Intake, IV Titration 1500 Amount Cefepime 2 gm In Sodium 100 Chloride 0.9% 100 ml @ 25 mls/hr IVPB Q8H [facility] Rx#: [id number] Potassium Chloride 10 meq 300 In Water For Injection 1 100ml.bag @ 100 mls/hr IVPB Q1HR [facility] Rx#: [id number] Sodium Chloride 0.9% 1, 900 000 ml @ 100 mls/hr IV . Q10H [facility] Rx#:[id number] metroNIDAZOLE-NS PMX 500 200 mg In Saline 1 100ml.bag @ 100 mls/hr IVPB Q8HR [facility] Rx#:[id number] Oral 120 540 Output: Stool 250 Emesis 1300 1000 300 Other: Voiding Method Bedside Commode Bedside Commode Bedside Commode Diaper Diaper Diaper # Bowel Movements 2 - Labs CBC & Chem 7: 07/24/22 07:48 07/24/22 07:48 Labs: Abnormal Lab Results - Last 24 Hours (Table) 07/23/22 07/23/22 07/23/22 Range/Units 06:41 11:12 16:05 WBC (3.8-10.6) k/uL RBC (3.80-5.40) m/uL Hgb (11.4-16.0) gm/dL Hct (34.0-46.0) % ESR 108 H (0-20) mm/hr Sodium (137-145) mmol/L Carbon Dioxide (22-30) mmol/L Glucose (74-99) mg/dL POC Glucose (mg/dL) 237 H (70-110) mg/dL Calcium (8.4-10.2) mg/dL Phosphorus (2.5-4.5) mg/dL Procalcitonin 6.04 H (0.02-0.09) ng/mL 07/23/22 07/24/22 07/24/22 Range/Units 20:08 05:54 07:48 WBC 0.4 L* (3.8-10.6) k/uL RBC 3.23 L (3.80-5.40) m/uL Hgb 10.4 L (11.4-16.0) gm/dL Hct 30.5 L (34.0-46.0) % ESR (0-20) mm/hr Sodium (137-145) mmol/L Carbon Dioxide (22-30) mmol/L Glucose (74-99) mg/dL POC Glucose (mg/dL) 247 H 260 H (70-110) mg/dL Calcium (8.4-10.2) mg/dL Phosphorus (2.5-4.5) mg/dL Procalcitonin (0.02-0.09) ng/mL 07/24/22 07/24/22 07/24/22 Range/Units 07:48 07:48 11:31 WBC (3.8-10.6) k/uL RBC (3.80-5.40) m/uL Hgb (11.4-16.0) gm/dL Hct (34.0-46.0) % ESR (0-20) mm/hr Sodium 136 L (137-145) mmol/L Carbon Dioxide 19 L (22-30) mmol/L Glucose 231 H (74-99) mg/dL POC Glucose (mg/dL) 229 H (70-110) mg/dL Calcium 6.8 L (8.4-10.2) mg/dL Phosphorus 1.6 L (2.5-4.5) mg/dL Procalcitonin (0.02-0.09) ng/mL Microbiology - Last 24 Hours (Table) 07/22/22 14:24 Blood Culture - Preliminary Blood No Growth after 24 hours 07/22/22 14:24 Blood Culture - Preliminary Blood No Growth after 24 hours
[2022-07-24] MEDS: ENOXAPARIN 40 MG/0.4 ML SYRINGE SQ SCH (14:36)
[2022-07-24] MEDS: MAG HYDROX/AL HYDROX/SIMETH 30 ML CUP PO PRN (14:40)
[2022-07-24] MEDS ORDERED: Phosphorus Replacement Protoco 1 EACH MISC MISCELLANE PRN (16:17)
[2022-07-24 16:23] LABS: Glucose,Whole Blood 211 mg/dL (70-110)
--- NOTE | 2022-07-24 16:52 | P.PN ---
Subjective Progress Note Date: 07/24/22 Principal diagnosis: Febrile neutropenia Patient is a 56-year female with a past medical history taken for diabetes mellitus hypertension COPD patient did have a history of right breast cancer on chemotherapy last chemo was about a week ago on the Monday 2 days later on patient started not feeling well symptom has been mostly nausea and vomiting and did have some diarrhea, patient was noticed to be febrile and did have a low white count patient did have a CT abdominal pelvis suggestive of ileus and abdominal hernia but no strangulation on today's evaluation that is 07/24/2022, the patient overall fever pattern has improved with the last temperature last evening of 101.8F, the patient is currently breathing comfortably on room air has been complaining of some nausea but no further vomiting, denies any chest pain or shortness of breath occasional cough Objective - Vital Signs Vital signs: Vital Signs Temp 98.2 F 07/24/22 12:00 Pulse 110 H 07/24/22 14:00 Resp 20 07/24/22 14:00 BP 138/75 07/24/22 12:00 Pulse Ox 98 07/24/22 12:00 FiO2 Intake & Output 07/23/22 07/24/22 07/24/22 18:59 06:59 18:59 Intake Total 1620 540 Output Total 1550 1000 400 Balance 70 -460 -400 Weight 116 kg Intake: Intake, IV Titration 1500 Amount Cefepime 2 gm In Sodium 100 Chloride 0.9% 100 ml @ 25 mls/hr IVPB Q8H [facility] Rx#: [id number] Potassium Chloride 10 meq 300 In Water For Injection 1 100ml.bag @ 100 mls/hr IVPB Q1HR [facility] Rx#: [id number] Sodium Chloride 0.9% 1, 900 000 ml @ 100 mls/hr IV . Q10H [facility] Rx#:[id number] metroNIDAZOLE-NS PMX 500 200 mg In Saline 1 100ml.bag @ 100 mls/hr IVPB Q8HR [facility] Rx#:[id number] Oral 120 540 Output: Stool 250 100 Emesis 1300 1000 300 Other: Voiding Method Bedside Commode Bedside Commode Bedside Commode Diaper Diaper Diaper # Voids 1 # Bowel Movements 2 - Exam GENERAL DESCRIPTION: Middle-age female up in the chair in no distress RESPIRATORY SYSTEM: Unlabored breathing , decreased breath sounds at bases HEART: S1 S2 regular rate and rhythm , ABDOMEN: Soft , mild distention but no tenderness EXTREMITIES: No edema feet - Labs CBC & Chem 7: 07/24/22 07:48 07/24/22 07:48 Labs: Abnormal Lab Results - Last 24 Hours (Table) 07/23/22 07/23/22 07/23/22 Range/Units 06:41 16:05 20:08 WBC (3.8-10.6) k/uL RBC (3.80-5.40) m/uL Hgb (11.4-16.0) gm/dL Hct (34.0-46.0) % Sodium (137-145) mmol/L Carbon Dioxide (22-30) mmol/L Glucose (74-99) mg/dL POC Glucose (mg/dL) 237 H 247 H (70-110) mg/dL Calcium (8.4-10.2) mg/dL Phosphorus (2.5-4.5) mg/dL Procalcitonin 6.04 H (0.02-0.09) ng/mL 07/24/22 07/24/22 07/24/22 Range/Units 05:54 07:48 07:48 WBC 0.4 L* (3.8-10.6) k/uL RBC 3.23 L (3.80-5.40) m/uL Hgb 10.4 L (11.4-16.0) gm/dL Hct 30.5 L (34.0-46.0) % Sodium 136 L (137-145) mmol/L Carbon Dioxide 19 L (22-30) mmol/L Glucose 231 H (74-99) mg/dL POC Glucose (mg/dL) 260 H (70-110) mg/dL Calcium 6.8 L (8.4-10.2) mg/dL Phosphorus (2.5-4.5) mg/dL Procalcitonin (0.02-0.09) ng/mL 07/24/22 07/24/22 Range/Units 07:48 11:31 WBC (3.8-10.6) k/uL RBC (3.80-5.40) m/uL Hgb (11.4-16.0) gm/dL Hct (34.0-46.0) % Sodium (137-145) mmol/L Carbon Dioxide (22-30) mmol/L Glucose (74-99) mg/dL POC Glucose (mg/dL) 229 H (70-110) mg/dL Calcium (8.4-10.2) mg/dL Phosphorus 1.6 L (2.5-4.5) mg/dL Procalcitonin (0.02-0.09) ng/mL Microbiology - Last 24 Hours (Table) 07/22/22 14:24 Blood Culture - Preliminary Blood No Growth after 24 hours 07/22/22 14:24 Blood Culture - Preliminary Blood No Growth after 24 hours Assessment and Plan (1) Febrile neutropenia Current Visit: Yes Status: Acute Code(s): D70.9 - NEUTROPENIA, UNSPECIFIED; R50.81 - FEVER PRESENTING WITH CONDITIONS CLASSIFIED ELSEWHERE SNOMED Code(s): 258734957 Plan: 1patient was in the hospital with febrile neutropenia predominantly has GI symptoms of nausea and vomiting also complaining of shortness of breath with initial chest x-raymedical abnormality patient did have a CT of abdominal pelvis completed this afternoon with evidence of small bowel obstruction ventral hernia but no evidence of any strangulation more likely dealing with abdominal source and need to cover for the enteric gram-negative both aerobes and anaerob es 2-patient has been evaluated general surgery and recommending observation 3-patient to continue cefepime and Flagyl while waiting for the culture to finalize Time with Patient: Less than 30
[2022-07-24] MEDS ORDERED: POTAS-SOD-PHOS 278-164-250 MG 1 EACH PACKET PO ONE (17:00)
[2022-07-24] MEDS: ACETAMINOPHEN TAB 325 MG TAB PO PRN (17:34)
[2022-07-24] MEDS: CYANOCOBALAMIN 500 MCG TAB PO SCH (18:04)
[2022-07-24] MEDS: CITALOPRAM HYDROBROMIDE 20 MG TAB PO SCH (18:04)
[2022-07-24] MEDS: ASPIRIN 81 MG PO SCH (18:04)
[2022-07-24] MEDS: FENOFIBRATE 160 MG TAB PO SCH (18:07)
[2022-07-24] MEDS: DULoxetine HCL 30 MG CAPSULE.DR PO SCH ×2 (18:07→20:51)
[2022-07-24] MEDS: LORATADINE 10 MG TAB PO SCH (18:07)
[2022-07-24] MEDS: AMMONIUM LACTATE 12% LOTION 225 GM BTL TOPICAL SCH (18:08)
[2022-07-24] MEDS: PANTOPRAZOLE 40 MG TABLET PO SCH (18:08)
[2022-07-24] MEDS: MULTIVITAMINS, THERA 1 EACH TAB PO SCH (18:08)
[2022-07-24] MEDS: CHOLECALCIFEROL 125 MCG (5000 IU) TABLET PO SCH (18:08)
[2022-07-24 20:05] LABS: Glucose,Whole Blood 241 mg/dL (70-110)
[2022-07-24] MEDS: ATORVASTATIN 40 MG TAB PO SCH (20:51)
[2022-07-25] MEDS: metroNIDAZOLE-NS PMX 500 MG in SALINE 1 100ML.BAG IVPB SCH ×3 (00:23→17:17)
[2022-07-25] MEDS: methylPREDNISolone SOD SUCCI 40 MG/ML 1 ML VIAL IV SCH ×4 (00:23→17:18)
[2022-07-25] MEDS: PROCHLORPERAZINE INJ 10 MG/2 ML VIAL IVP PRN ×3 (02:58→21:57)
[2022-07-25] MEDS ORDERED: VANCOMYCIN TROUGH DUE 1 EACH MISC MISCELLANE ONE (04:00)
[2022-07-25 04:48] LABS: HCT 31.4 % (34.0-46.0); HGB 10.9 gm/dL (11.4-16.0); MCH 32.8 pg (25.0-35.0); MCHC 34.7 g/dL (31.0-37.0); MCV 94.4 fL (80.0-100.0); Mean Platelet Volume 9.9; Platelet Count 137 k/uL (150-450); RBC 3.33 m/uL (3.80-5.40); RDW 13.1 % (11.5-15.5)
[2022-07-25 04:54] LABS: African American GFR (CKD) >90 (>60 ml/min/1.73 sqM); Anion Gap 12 mmol/L; Blood Urea Nitrogen 13 mg/dL (7-17); Calcium 7.2 mg/dL (8.4-10.2); Carbon Dioxide 19 mmol/L (22-30); Chloride 107 mmol/L (98-107); Glucose 228 mg/dL (74-99); Non-African American GFR(CKD) >90 (>60 ml/min/1.73 sqM); Phosphorus 1.5 mg/dL (2.5-4.5); Potassium 3.3 mmol/L (3.5-5.1); Sodium 138 mmol/L (137-145)
[2022-07-25] MEDS: SODIUM CHLORIDE 0.9% 1,000 ML IV SCH ×2 (04:57→13:04)
[2022-07-25 05:25] LABS: WBC 0.7 k/uL (3.8-10.6)
[2022-07-25] MEDS: CEFEPIME 2 GM in SODIUM CHLORIDE 0.9% 100 ML IVPB SCH ×3 (05:40→20:21)
[2022-07-25] MEDS: VANCOMYCIN 1,750 MG in SODIUM CHLORIDE 0.9% 500 ML 500 ML IVPB SCH (05:41)
[2022-07-25 06:15] LABS: Glucose,Whole Blood 253 mg/dL (70-110)
[2022-07-25] MEDS: INSULIN ASPART (NovoLOG) 100 UNIT/ML VIAL SQ SCH ×4 (06:26→20:20)
[2022-07-25] MEDS: INSULIN DETEMIR (LEVEMIR) 100 UNIT/ML SYR SQ SCH (06:26)
--- NOTE | 2022-07-25 07:17 | XR ---
EXAMINATION TYPE: XR abdomen 2V DATE OF EXAM: 07/25/2022 HISTORY: Pain. Technique: 4 views of the abdomen are submitted. Comparison: None. Findings: There is no convincing evidence of pneumoperitoneum. The Bowel gas pattern is nonspecific and nonobstructive. No sizable air-fluid levels are seen. No mass effects are noted. No renal calcifications are identified. IMPRESSION: 1. Nonspecific nonobstructive bowel gas pattern
[2022-07-25] MEDS: ALBUTEROL NEBULIZED 2.5 MG/3 ML INHALATION SCH ×3 (08:03→15:10)
[2022-07-25] MEDS: IPRATROPIUM 0.5 MG/2.5 ML NEBU INHALATION SCH ×3 (08:04→15:10)
[2022-07-25] MEDS: MULTIVITAMINS, THERA 1 EACH TAB PO SCH (09:37)
[2022-07-25] MEDS: CITALOPRAM HYDROBROMIDE 20 MG TAB PO SCH (09:37)
[2022-07-25] MEDS: CYANOCOBALAMIN 500 MCG TAB PO SCH (09:37)
[2022-07-25] MEDS: FENOFIBRATE 160 MG TAB PO SCH (09:37)
[2022-07-25] MEDS: DULoxetine HCL 30 MG CAPSULE.DR PO SCH ×2 (09:37→20:20)
[2022-07-25] MEDS: LORATADINE 10 MG TAB PO SCH (09:37)
[2022-07-25] MEDS: ASPIRIN 81 MG PO SCH (09:37)
[2022-07-25] MEDS: PANTOPRAZOLE 40 MG TABLET PO SCH (09:38)
[2022-07-25] MEDS: CHOLECALCIFEROL 125 MCG (5000 IU) TABLET PO SCH (09:38)
[2022-07-25] MEDS: ENOXAPARIN 40 MG/0.4 ML SYRINGE SQ SCH (10:09)
[2022-07-25] MEDS: AMMONIUM LACTATE 12% LOTION 225 GM BTL TOPICAL SCH (10:42)
--- NOTE | 2022-07-25 10:47 | P.PN ---
Subjective Progress Note Date: 07/25/22 Hospital Course: 86-year-old female patient with a past medical history significant for COPD/ast hma not on home oxygen, nonsmoker, hypertension, diabetes mellitus type 2, breast cancer in the right breast receiving chemotherapy currently presented with shortness of breath, wheezing, productive cough. In the ER, Labs showed White cell count was 0.6, PT 12.5, INR 1.2, sodium 132, bicarb 19, glucose 425, lactic acid 3.8, calcium 7.0, phosphorus 1.8, magnesium 1.5. Chest x-ray poor inspiratory film no definite infiltrates noted. Patient received neb treatments, IV vancomycin and IV cefepime in the ER. Patient admitted for sepsis, febrile neutropenia, COPD exacerbation. Oncology and ID consulted. Patient also having significant abdominal pain, nausea, vomiting. CT abdomen and pelvis showed possible small bowel focal ileus or closed-loop obstruction, ventral hernia. Surgery was consulted suspect likely ileus. Patient continues to be nauseous. Subjective: Patient seen and examined at bedside. She has been afebrile, but continues to be nauseous, also having bouts of vomiting. Currently she is complaining of some lower abdominal pain, but denies any chest pain or shortness of breath. She denies any wheezing. Pertinent positives and negatives as discussed above, a complete review of systems was performed and all other systems are negative. Vitals Signs Reviewed. General: tired appearing, in mild distress, appears at stated age Derm: warm, dry Head: atraumatic, normocephalic, symmetric Eyes: EOMI, no lid lag, anicteric sclera Mouth: no lip lesion, mucus membranes moist Cardiovascular: S1S2 reg, no murmur Lungs: CTA bilateral, no rhonchi, no rales , no accessory muscle use, supplemental oxygen Abdominal: soft, mild periumbilical tenderness to palpation, no guarding, no appreciable organomegaly Ext: no gross muscle atrophy, no edema, no contractures Neuro: CN II-XI grossly intact, no focal neuro deficits Psych: Alert, oriented, appropriate affect Data Reviewed Today: Pertinent Labs: WBC 0.7, hemoglobin 10.9, platelet 137, sodium 138, bicarb 19, blood sugars range between 211-253 Abdominal x-ray personally interpreted shows bowel gas, no air-fluid levels Assessment and Plan: Patient is critically ill, needs close monitoring and IV antibiotics. Active: Sepsis Febrile neutropenia Breast cancer status post cycle 1 chemotherapy Ileus COPD exacerbation Hypokalemia Poorly controlled Type 2 diabetes with hyperglycemia, A1c 10.8 -ID following, CT abdomen and pelvis doesn't show a clear-cut source of infection -Blood cultures negative growth to date, sputum cultures pending, urinalysis pending -Continue cefepime 2 g IV every 8 hours, IV Flagyl 500 IV every 8 hours -Vancomycin discontinued given no prior evidence of MRSA, and gram negatives and anaerobes being the likely microbe leading to sepsis -Oncology following -Surgery following, suspect ileus, started on clears -Continue bronchodilators and IV steroids -40 mEq IV potassium ordered -Continue 15 units Levemir daily, sliding scale insulin, no changes today as patient is not able to tolerate much oral intake Resolved: Hypomagnesemia Diabetic ketoacidosis Acute hypoxic respiratory failure Chronic: Dyslipidemia DVT ppx: Lovenox Code status: Full code Anticipated discharge place: Pending clinical course Anticipated discharge time: Pending clinical course Objective - Vital Signs Vital signs: Vital Signs Temp 97.8 F 07/25/22 08:00 Pulse 80 07/25/22 08:19 Resp 18 07/25/22 08:00 BP 145/76 07/25/22 08:00 Pulse Ox 99 07/25/22 08:04 FiO2 Intake & Output 07/24/22 07/25/22 07/25/22 18:59 06:59 18:59 Intake Total 118 260 Output Total 400 1300 Balance -282 -1040 Intake: IV 20 Invasive Line 1 20 Oral 118 240 Output: Urine 600 Stool 100 100 Emesis 300 600 Other: Voiding Method Bedside Commode Bedside Commode Bedside Commode Diaper Diaper Diaper # Voids 1 1 # Bowel Movements 1 - Labs CBC & Chem 7: 07/25/22 04:20 07/25/22 04:20 Labs: Abnormal Lab Results - Last 24 Hours (Table) 07/24/22 07/24/22 07/24/22 Range/Units 07:48 11:31 16:20 WBC (3.8-10.6) k/uL RBC (3.80-5.40) m/uL Hgb (11.4-16.0) gm/dL Hct (34.0-46.0) % Plt Count (150-450) k/uL Potassium (3.5-5.1) mmol/L Carbon Dioxide (22-30) mmol/L Creatinine (0.52-1.04) mg/dL Glucose (74-99) mg/dL POC Glucose (mg/dL) 229 H 211 H (70-110) mg/dL Calcium (8.4-10.2) mg/dL Phosphorus 1.6 L (2.5-4.5) mg/dL 07/24/22 07/25/22 07/25/22 Range/Units 20:02 04:20 04:20 WBC 0.7 L* (3.8-10.6) k/uL RBC 3.33 L (3.80-5.40) m/uL Hgb 10.9 L (11.4-16.0) gm/dL Hct 31.4 L (34.0-46.0) % Plt Count 137 L (150-450) k/uL Potassium 3.3 L (3.5-5.1) mmol/L Carbon Dioxide 19 L (22-30) mmol/L Creatinine 0.50 L (0.52-1.04) mg/dL Glucose 228 H (74-99) mg/dL POC Glucose (mg/dL) 241 H (70-110) mg/dL Calcium 7.2 L (8.4-10.2) mg/dL Phosphorus 1.5 L (2.5-4.5) mg/dL 07/25/22 Range/Units 06:12 WBC (3.8-10.6) k/uL RBC (3.80-5.40) m/uL Hgb (11.4-16.0) gm/dL Hct (34.0-46.0) % Plt Count (150-450) k/uL Potassium (3.5-5.1) mmol/L Carbon Dioxide (22-30) mmol/L Creatinine (0.52-1.04) mg/dL Glucose (74-99) mg/dL POC Glucose (mg/dL) 253 H (70-110) mg/dL Calcium (8.4-10.2) mg/dL Phosphorus (2.5-4.5) mg/dL Microbiology - Last 24 Hours (Table) 07/22/22 14:24 Blood Culture - Preliminary Blood No Growth after 48 hours 07/22/22 14:24 Blood Culture - Preliminary Blood No Growth after 48 hours
[2022-07-25 11:49] LABS: Glucose,Whole Blood 205 mg/dL (70-110)
[2022-07-25] MEDS: POTASSIUM CHLORIDE 10 MEQ in WATER FOR INJECTION 1 100ML.BAG IVPB SCH ×4 (11:57→15:43)
[2022-07-25 16:16] LABS: Glucose,Whole Blood 221 mg/dL (70-110)
--- NOTE | 2022-07-25 16:18 | P.PN ---
Subjective Progress Note Date: 07/25/22 Principal diagnosis: Febrile neutropenia Patient is a 56-year female with a past medical history taken for diabetes mellitus hypertension COPD patient did have a history of right breast cancer on chemotherapy last chemo was about a week ago on the Monday 2 days later on patient started not feeling well symptom has been mostly nausea and vomiting and did have some diarrhea, patient was noticed to be febrile and did have a low white count patient did have a CT abdominal pelvis suggestive of ileus and abdominal hernia but no strangulation on today's evaluation that is 07/25/2022, the patient is afebrile, the patient is breathing comfortably on room air , the patient has been complaining of some nausea but no further vomiting, denies any chest pain or shortness of breath occasional cough, no further bowel movement Objective - Vital Signs Vital signs: Vital Signs Temp 98 F 07/25/22 12:24 Pulse 82 07/25/22 12:24 Resp 18 07/25/22 12:24 BP 153/67 07/25/22 12:24 Pulse Ox 100 07/25/22 12:24 FiO2 Intake & Output 07/24/22 07/25/22 07/25/22 18:59 06:59 18:59 Intake Total 118 260 Output Total 400 1300 Balance -282 -1040 Intake: IV 20 Invasive Line 1 20 Oral 118 240 Output: Urine 600 Stool 100 100 Emesis 300 600 Other: Voiding Method Bedside Commode Bedside Commode Bedside Commode Diaper Diaper Diaper # Voids 1 1 # Bowel Movements 1 - Exam GENERAL DESCRIPTION: Middle-age female up in the chair in no distress RESPIRATORY SYSTEM: Unlabored breathing , decreased breath sounds at bases HEART: S1 S2 regular rate and rhythm , ABDOMEN: Soft , mild distention but no tenderness EXTREMITIES: No edema feet - Labs CBC & Chem 7: 07/25/22 04:20 07/25/22 04:20 Labs: Abnormal Lab Results - Last 24 Hours (Table) 07/24/22 07/24/22 07/25/22 Range/Units 16:20 20:02 04:20 WBC 0.7 L* (3.8-10.6) k/uL RBC 3.33 L (3.80-5.40) m/uL Hgb 10.9 L (11.4-16.0) gm/dL Hct 31.4 L (34.0-46.0) % Plt Count 137 L (150-450) k/uL Potassium (3.5-5.1) mmol/L Carbon Dioxide (22-30) mmol/L Creatinine (0.52-1.04) mg/dL Glucose (74-99) mg/dL POC Glucose (mg/dL) 211 H 241 H (70-110) mg/dL Calcium (8.4-10.2) mg/dL Phosphorus (2.5-4.5) mg/dL 07/25/22 07/25/22 07/25/22 Range/Units 04:20 06:12 11:45 WBC (3.8-10.6) k/uL RBC (3.80-5.40) m/uL Hgb (11.4-16.0) gm/dL Hct (34.0-46.0) % Plt Count (150-450) k/uL Potassium 3.3 L (3.5-5.1) mmol/L Carbon Dioxide 19 L (22-30) mmol/L Creatinine 0.50 L (0.52-1.04) mg/dL Glucose 228 H (74-99) mg/dL POC Glucose (mg/dL) 253 H 205 H (70-110) mg/dL Calcium 7.2 L (8.4-10.2) mg/dL Phosphorus 1.5 L (2.5-4.5) mg/dL Microbiology - Last 24 Hours (Table) 07/24/22 07:48 Blood Culture - Preliminary Blood No Growth after 24 hours 07/22/22 14:24 Blood Culture - Preliminary Blood No Growth after 48 hours 07/22/22 14:24 Blood Culture - Preliminary Blood No Growth after 48 hours Assessment and Plan (1) Febrile neutropenia Current Visit: Yes Status: Acute Priority: High Code(s): D70.9 - VALERI TROPENIA, UNSPECIFIED; R50.81 - FEVER PRESENTING WITH CONDITIONS CLASSIFIED ELSEWHERE SNOMED Code(s): 944340126 Plan: 1patient was in the hospital with febrile neutropenia predominantly has GI symptoms of nausea and vomiting also complaining of shortness of breath with initial chest x-raymedical abnormality patient did have a CT of abdominal pelvis completed this afternoon with evidence of small bowel obstruction ventral hernia but no evidence of any strangulation more likely dealing with abdominal source and need to cover for the enteric gram-negative both aerobes and anaerobes 2-patient has been evaluated general surgery and recommending observation 3-patient did have abdominal x-ray this morning with nonobstructive bowel gas pattern, patient to continue cefepime and Flagyl and monitor clinical course closely Time with Patient: Less than 30
[2022-07-25] MEDS ORDERED: IPRATROPIUM-ALBUTEROL 3 ML NEB INHALATION PRN (16:19)
--- NOTE | 2022-07-25 16:23 | P.PN ---
Subjective Progress Note Date: 07/25/22 Principal diagnosis: Abdominal pain, hernia Patient says she feels overall better today. Still having some abdominal discomfort. Says its diffuse in nature. She thinks it better. Mild nausea. Tolerating liquid diet. Some loose stools. Leukopenia persists. Patient is afebrile without tachycardia. Objective - Vital Signs Vital signs: Vital Signs Temp 98.1 F 07/25/22 16:01 Pulse 83 07/25/22 16:01 Resp 18 07/25/22 16:01 BP 131/67 07/25/22 16:01 Pulse Ox 99 07/25/22 16:01 FiO2 Intake & Output 07/24/22 07/25/22 07/25/22 18:59 06:59 18:59 Intake Total 797 674 1118 Output Total 400 1300 500 Balance -282 -1040 800 Intake: IV 20 Invasive Line 1 20 Intake, IV Titration 1300 Amount Cefepime 2 gm In Sodium 100 Chloride 0.9% 100 ml @ 25 mls/hr IVPB Q8H [facility] Rx#: [id number] Potassium Chloride 10 meq 400 In Water For Injection 1 100ml.bag @ 100 mls/hr IVPB Q1HR [facility] Rx#: [id number] Sodium Chloride 0.9% 1, 700 000 ml @ 100 mls/hr IV . Q10H [facility] Rx#:[id number] metroNIDAZOLE-NS PMX 500 100 mg In Saline 1 100ml.bag @ 100 mls/hr IVPB Q8HR [facility] Rx#:[id number] Oral 118 240 Output: Urine 600 Stool 100 100 Emesis 300 600 500 Other: Voiding Method Bedside Commode Bedside Commode Bedside Commode Diaper Diaper Diaper # Voids 1 1 # Bowel Movements 1 - Exam Abdomen: Soft, mild distention, reducible umbilical hernia present, mild diffuse tenderness - Labs CBC & Chem 7: 07/25/22 04:20 07/25/22 04:20 Labs: Abnormal Lab Results - Last 24 Hours (Table) 07/24/22 07/24/22 07/25/22 Range/Units 16:20 20:02 04:20 WBC 0.7 L* (3.8-10.6) k/uL RBC 3.33 L (3.80-5.40) m/uL Hgb 10.9 L (11.4-16.0) gm/dL Hct 31.4 L (34.0-46.0) % Plt Count 137 L (150-450) k/uL Potassium (3.5-5.1) mmol/L Carbon Dioxide (22-30) mmol/L Creatinine (0.52-1.04) mg/dL Glucose (74-99) mg/dL POC Glucose (mg/dL) 211 H 241 H (70-110) mg/dL Calcium (8.4-10.2) mg/dL Phosphorus (2.5-4.5) mg/dL 07/25/22 07/25/22 07/25/22 Range/Units 04:20 06:12 11:45 WBC (3.8-10.6) k/uL RBC (3.80-5.40) m/uL Hgb (11.4-16.0) gm/dL Hct (34.0-46.0) % Plt Count (150-450) k/uL Potassium 3.3 L (3.5-5.1) mmol/L Carbon Dioxide 19 L (22-30) mmol/L Creatinine 0.50 L (0.52-1.04) mg/dL Glucose 228 H (74-99) mg/dL POC Glucose (mg/dL) 253 H 205 H (70-110) mg/dL Calcium 7.2 L (8.4-10.2) mg/dL Phosphorus 1.5 L (2.5-4.5) mg/dL 07/25/22 Range/Units 16:15 WBC (3.8-10.6) k/uL RBC (3.80-5.40) m/uL Hgb (11.4-16.0) gm/dL Hct (34.0-46.0) % Plt Count (150-450) k/uL Potassium (3.5-5.1) mmol/L Carbon Dioxide (22-30) mmol/L Creatinine (0.52-1.04) mg/dL Glucose (74-99) mg/dL POC Glucose (mg/dL) 221 H (70-110) mg/dL Calcium (8.4-10.2) mg/dL Phosphorus (2.5-4.5) mg/dL Microbiology - Last 24 Hours (Table) 07/24/22 07:48 Blood Culture - Preliminary Blood No Growth after 24 hours 07/22/22 14:24 Blood Culture - Preliminary Blood No Growth after 48 hours 07/22/22 14:24 Blood Culture - Preliminary Blood No Growth after 48 hours Assessment and Plan (1) Ileus Narrative/Plan: 56-year-old female with neutropenic sepsis. Agree with plans for clear liquids until the patient's blood cell counts have improved. Today's x-rays noted without evidence of obstruction or free air. We'll follow with you. Current Visit: Yes Status: Acute Code(s): K56.7 - ILEUS, UNSPECIFIED SNOMED Code(s): 566849427
[2022-07-25] MEDS ORDERED: VANCOMYCIN 2,000 MG in SODIUM CHLORIDE 0.9% 500 ML 500 ML IVPB SCH (17:00)
[2022-07-25] MEDS: FILGRASTIM-SNDZ 480 MCG/0.8 ML SYRINGE SQ SCH (17:37)
[2022-07-25 20:02] LABS: Glucose,Whole Blood 243 mg/dL (70-110)
[2022-07-25] MEDS: ATORVASTATIN 40 MG TAB PO SCH (20:20)
[2022-07-25] MEDS: ACETAMINOPHEN TAB 325 MG TAB PO PRN (20:26)
--- NOTE | 2022-07-25 22:04 | P.PN ---
Subjective Progress Note Date: 07/25/22 Principal diagnosis: triple neg breast cancer, chemo side effects, neutropenic fever In f/u today pt reports poor appetite, nausea, small amt emesis, oral irritation, abd distension, she is having diarrhea. CTAP reporting sm bowel enlarged with stool, abd xray was neg. Objective - Vital Signs Vital signs: Vital Signs Temp 98 F 07/25/22 12:24 Pulse 82 07/25/22 12:24 Resp 18 07/25/22 12:24 BP 153/67 07/25/22 12:24 Pulse Ox 100 07/25/22 12:24 FiO2 Intake & Output 07/24/22 07/25/22 07/25/22 18:59 06:59 18:59 Intake Total 118 260 Output Total 400 1300 Balance -282 -1040 Intake: IV 20 Invasive Line 1 20 Oral 118 240 Output: Urine 600 Stool 100 100 Emesis 300 600 Other: Voiding Method Bedside Commode Bedside Commode Bedside Commode Diaper Diaper Diaper # Voids 1 1 # Bowel Movements 1 - Constitutional General appearance: Present: cooperative, morbidly obese, no acute distress - EENT Eyes: Present: anicteric sclerae, EOMI ENT: Present: hearing grossly normal - Respiratory Details: resp even and unlabored - Cardiovascular Rhythm: regular Heart sounds: normal: S1, S2 Abnormal Heart Sounds: Absent: systolic murmur, diastolic murmur, rub, S3 Gallop, S4 Gallop, click, other - Peripheral edema leg Peripheral Edema: bilateral: None - Gastrointestinal Gastrointestinal Comment(s): rebound tenderness in LLQ and RLQ General gastrointestinal: Present: soft, tenderness - Integumentary Integumentary: Present: pale - Neurologic Neurologic: Present: CNII-XII intact - Musculoskeletal Musculoskeletal: Present: strength equal bilaterally - Psychiatric Psychiatric: Present: A&O x's 3, appropriate affect, intact judgment & insight - Labs CBC & Chem 7: 07/25/22 04:20 07/25/22 04:20 Labs: Abnormal Lab Results - Last 24 Hours (Table) 07/24/22 07/24/22 07/25/22 Range/Units 16:20 20:02 04:20 WBC 0.7 L* (3.8-10.6) k/uL RBC 3.33 L (3.80-5.40) m/uL Hgb 10.9 L (11.4-16.0) gm/dL Hct 31.4 L (34.0-46.0) % Plt Count 137 L (150-450) k/uL Potassium (3.5-5.1) mmol/L Carbon Dioxide (22-30) mmol/L Creatinine (0.52-1.04) mg/dL Glucose (74-99) mg/dL POC Glucose (mg/dL) 211 H 241 H (70-110) mg/dL Calcium (8.4-10.2) mg/dL Phosphorus (2.5-4.5) mg/dL 07/25/22 07/25/22 07/25/22 Range/Units 04:20 06:12 11:45 WBC (3.8-10.6) k/uL RBC (3.80-5.40) m/uL Hgb (11.4-16.0) gm/dL Hct (34.0-46.0) % Plt Count (150-450) k/uL Potassium 3.3 L (3.5-5.1) mmol/L Carbon Dioxide 19 L (22-30) mmol/L Creatinine 0.50 L (0.52-1.04) mg/dL Glucose 228 H (74-99) mg/dL POC Glucose (mg/dL) 253 H 205 H (70-110) mg/dL Calcium 7.2 L (8.4-10.2) mg/dL Phosphorus 1.5 L (2.5-4.5) mg/dL Microbiology - Last 24 Hours (Table) 07/24/22 07:48 Blood Culture - Preliminary Blood No Growth after 24 hours 07/22/22 14:24 Blood Culture - Preliminary Blood No Growth after 48 hours 07/22/22 14:24 Blood Culture - Preliminary Blood No Growth after 48 hours - Imaging and Cardiology Abdominal x-ray: report reviewed CT scan - abdomen: report reviewed CT scan - pelvis: report reviewed Assessment and Plan (1) Febrile neutropenia Current Visit: Yes Status: Acute Priority: High Code(s): D70.9 - NEUT ROPENIA, UNSPECIFIED; R50.81 - FEVER PRESENTING WITH CONDITIONS CLASSIFIED ELSEWHERE SNOMED Code(s): 567269998 (2) Neutropenic typhlitis Current Visit: Yes Status: Acute Priority: High Code(s): K37 - UNSPECIFIED APPENDICITIS; D70.9 - NEUTROPENIA, UNSPECIFIED SNOMED Code(s): 8438487 (3) Breast cancer Current Visit: Yes Status: Acute Priority: High Code(s): C50.919 - MALIGNANT NEOPLASM OF UNSP SITE OF UNSPECIFIED FEMALE BREAST SNOMED Code(s): 395474011 (4) Pancytopenia due to chemotherapy Current Visit: Yes Status: Acute Priority: Medium Code(s): D61.810 - ANTINEOPLASTIC CHEMOTHERAPY INDUCED PANCYTOPENIA SNOMED Code(s): 2966336 Plan: Febrile neutropenia -2/2 chemo -GCSF ordered -CBC with diff daily. Stop GCSF once ANC>1000 -agree with abx coverage -ID following -blood cultures neg at 72 hours Neutropenic typhilitis -rebound discomfort on exam -GCSF started -NPO other then ice chips and sips of clears -Surgery following Pancytopenia -2/2 chemo -GCSF started -Anemia and thrombocytopenia mild, not requiring intervention at this time -CBC monitoring while inpt Triple neg breast cancer -f/u with her primary Oncologist once she is discharged prior to resuming any treatment
[2022-07-26] MEDS: methylPREDNISolone SOD SUCCI 40 MG/ML 1 ML VIAL IV SCH ×4 (00:16→17:23)
[2022-07-26] MEDS: metroNIDAZOLE-NS PMX 500 MG in SALINE 1 100ML.BAG IVPB SCH ×3 (00:16→17:22)
[2022-07-26] MEDS: SODIUM CHLORIDE 0.9% 1,000 ML IV SCH ×3 (00:21→20:32)
[2022-07-26 06:06] LABS: Glucose,Whole Blood 219 mg/dL (70-110)
[2022-07-26] MEDS: CEFEPIME 2 GM in SODIUM CHLORIDE 0.9% 100 ML IVPB SCH ×3 (06:43→20:34)
[2022-07-26] MEDS: INSULIN DETEMIR (LEVEMIR) 100 UNIT/ML SYR SQ SCH (06:43)
[2022-07-26] MEDS: ACETAMINOPHEN TAB 325 MG TAB PO PRN (06:43)
[2022-07-26] MEDS: INSULIN ASPART (NovoLOG) 100 UNIT/ML VIAL SQ SCH ×4 (06:43→20:34)
[2022-07-26] MEDS: PROCHLORPERAZINE INJ 10 MG/2 ML VIAL IVP PRN ×3 (06:44→22:03)
[2022-07-26] MEDS: IPRATROPIUM-ALBUTEROL 3 ML NEB INHALATION SCH ×4 (07:55→21:38)
[2022-07-26] MEDS: PANTOPRAZOLE 40 MG TABLET PO SCH (08:28)
[2022-07-26] MEDS: CHOLECALCIFEROL 125 MCG (5000 IU) TABLET PO SCH (08:29)
[2022-07-26] MEDS: FENOFIBRATE 160 MG TAB PO SCH (08:29)
[2022-07-26] MEDS: MULTIVITAMINS, THERA 1 EACH TAB PO SCH (08:29)
[2022-07-26] MEDS: LORATADINE 10 MG TAB PO SCH (08:29)
[2022-07-26] MEDS: CITALOPRAM HYDROBROMIDE 20 MG TAB PO SCH (08:29)
[2022-07-26] MEDS: DULoxetine HCL 30 MG CAPSULE.DR PO SCH ×2 (08:29→20:33)
[2022-07-26] MEDS: ASPIRIN 81 MG PO SCH (08:29)
[2022-07-26] MEDS: CYANOCOBALAMIN 500 MCG TAB PO SCH (08:30)
[2022-07-26] MEDS: ENOXAPARIN 40 MG/0.4 ML SYRINGE SQ SCH (08:30)
[2022-07-26] MEDS: AMMONIUM LACTATE 12% LOTION 225 GM BTL TOPICAL SCH (08:31)
[2022-07-26 09:07] LABS: African American GFR (CKD) >90 (>60 ml/min/1.73 sqM); Anion Gap 11 mmol/L; Blood Urea Nitrogen 16 mg/dL (7-17); Calcium 7.1 mg/dL (8.4-10.2); Carbon Dioxide 19 mmol/L (22-30); Chloride 110 mmol/L (98-107); Glucose 226 mg/dL (74-99); Non-African American GFR(CKD) >90 (>60 ml/min/1.73 sqM); Potassium 3.2 mmol/L (3.5-5.1); Sodium 140 mmol/L (137-145)
[2022-07-26 09:44] LABS: HGB 11.1 gm/dL (11.4-16.0); MCHC 33.7 g/dL (31.0-37.0); MCV 95.2 fL (80.0-100.0); Mean Platelet Volume 11.2; Platelet Count 130 k/uL (150-450); RBC 3.47 m/uL (3.80-5.40); RDW 14.2 % (11.5-15.5)
[2022-07-26 11:05] LABS: Band Neutrophils % 9 %; Basophils # (M) 0.03 k/uL (0-0.2); Metamyelocytes % 6 %; Neutrophils % (M) 48 %; Nucleated Red Blood Cells 4 /100 WBC (0-0); Total Cells Counted 200
[2022-07-26 11:07] LABS: Metamyelocytes # (M) 0.15 k/uL (0); Monocytes # (M) 0.15 k/uL (0-1.0); WBC 2.5 k/uL (3.8-10.6)
[2022-07-26 11:47] LABS: Glucose,Whole Blood 226 mg/dL (70-110)
--- NOTE | 2022-07-26 12:13 | P.PN ---
Subjective Progress Note Date: 07/26/22 CHIEF COMPLAINT: Abdominal pain HISTORY OF PRESENT ILLNESS: Patient is sitting in bedside chair. She reports a decrease in her abdominal pain. She reports having 2 episodes of diarrhea yesterday evening. 2 episodes this morning. She does report that it's becoming less frequent. She did have some mild nausea no vomiting. Afebrile. Tachycardia resolved. Patient is currently in by mouth her oncology service. WBC is 2.5 Hgb 11.1 platelets 1:30 sodium is 140 potassium is 3.2 creatinine 0.49 PHYSICAL EXAM: VITAL SIGNS: Reviewed. GENERAL: Well-developed in no acute distress. HEENT: No sclera icterus. Extraocular movements grossly intact. Moist buccal mucosa. Head is atraumatic, normocephalic. ABDOMEN: Soft. Mildly distended. Reducible umbilical hernia. Nontender. NEUROLOGIC: Alert and oriented. Cranial nerves II through XII grossly intact. ASSESSMENT: 1. Ileus 2. Reducible umbilical hernia 3. Neutropenic sepsis 4. Triple negative breast cancer 5. Hypokalemia PLAN: -Patient currently nothing by mouth except ice chips per oncology -Diet advancement per oncology service -Antibiotics per ID service -Replace potassium Physician Hand Router Operator note has been reviewed by physician. Signing provider agrees with the documented findings, assessment, and plan of care. I have personally seen and examined the patient, reviewed the WHIZZER /PAs history, exam and MDM and agree with the assessment and plan as written. Based on total visit time, I have performed more than 50% of the visit. As above: Patient says her pain is improved today. She has had 6 episodes of diarrhea since last night. These are nonbloody. She was made nothing by mouth. She is thirsty. Mild nausea but no vomiting. Continue IV antibiotics. Continue bowel rest. Will follow. Objective - Vital Signs Vital signs: Vital Signs Temp 98.8 F 07/26/22 08:37 Pulse 80 07/26/22 11:41 Resp 18 07/26/22 11:34 BP 143/65 07/26/22 11:34 Pulse Ox 99 07/26/22 11:34 FiO2 Intake & Output 07/25/22 07/26/22 07/26/22 18:59 06:59 18:59 Intake Total 1300 Output Total 500 2000 Balance 800 -2000 Intake: Intake, IV Titration 1300 Amount Cefepime 2 gm In Sodium 100 Chloride 0.9% 100 ml @ 25 mls/hr IVPB Q8H [facility] Rx#: [id number] Potassium Chloride 10 meq 400 In Water For Injection 1 100ml.bag @ 100 mls/hr IVPB Q1HR [facility] Rx#: [id number] Sodium Chloride 0.9% 1, 700 000 ml @ 100 mls/hr IV . Q10H [facility] Rx#:[id number] metroNIDAZOLE-NS PMX 500 100 mg In Saline 1 100ml.bag @ 100 mls/hr IVPB Q8HR [facility] Rx#:[id number] Output: Urine 1900 Stool 100 Emesis 500 Other: Voiding Method Bedside Commode Bedside Commode Bedside Commode Diaper Diaper Diaper # Bowel Movements 2 - Labs CBC & Chem 7: 07/26/22 08:18 07/26/22 08:18 Labs: Abnormal Lab Results - Last 24 Hours (Table) 07/25/22 07/25/22 07/26/22 Range/Units 16:15 20:00 06:04 WBC (3.8-10.6) k/uL RBC (3.80-5.40) m/uL Hgb (11.4-16.0) gm/dL Hct (34.0-46.0) % Plt Count (150-450) k/uL Lymphocytes # (Manual) (1.0-4.8) k/uL Metamyelocytes # (Man) (0) k/uL Nucleated RBCs (0-0) /100 WBC Potassium (3.5-5.1) mmol/L Chloride (98-107) mmol/L Carbon Dioxide (22-30) mmol/L Creatinine (0.52-1.04) mg/dL Glucose (74-99) mg/dL POC Glucose (mg/dL) 221 H 243 H 219 H (70-110) mg/dL Calcium (8.4-10.2) mg/dL 07/26/22 07/26/22 07/26/22 Range/Units 08:18 08:18 11:44 WBC 2.5 L (3.8-10.6) k/uL RBC 3.47 L (3.80-5.40) m/uL Hgb 11.1 L (11.4-16.0) gm/dL Hct 33.0 L (34.0-46.0) % Plt Count 130 L (150-450) k/uL Lymphocytes # (Manual) 0.80 L (1.0-4.8) k/uL Metamyelocytes # (Man) 0.15 H (0) k/uL Nucleated RBCs 4 H (0-0) /100 WBC Potassium 3.2 L (3.5-5.1) mmol/L Chloride 110 H (98-107) mmol/L Carbon Dioxide 19 L (22-30) mmol/L Creatinine 0.49 L (0.52-1.04) mg/dL Glucose 226 H (74-99) mg/dL POC Glucose (mg/dL) 226 H (70-110) mg/dL Calcium 7.1 L (8.4-10.2) mg/dL Microbiology - Last 24 Hours (Table) 07/24/22 07:48 Blood Culture - Preliminary Blood No Growth after 48 hours 07/22/22 14:24 Blood Culture - Preliminary Blood No Growth after 72 hours 07/22/22 14:24 Blood Culture - Preliminary Blood No Growth after 72 hours
[2022-07-26] MEDS: POTASSIUM CHLORIDE 10 MEQ in WATER FOR INJECTION 1 100ML.BAG IVPB SCH ×4 (12:50→17:22)
--- NOTE | 2022-07-26 15:03 | P.PN ---
Subjective Progress Note Date: 07/26/22 86-year-old female patient with a past medical history significant for COPD/asthma not on home oxygen, nonsmoker, hypertension, diabetes mellitus type 2, breast cancer in the right breast receiving chemotherapy currently presented with shortness of breath, wheezing, productive cough. In the ER, Labs showed White cell count was 0.6, PT 12.5, INR 1.2, sodium 132, bicarb 19, glucose 425, lactic acid 3.8, calcium 7.0, phosphorus 1.8, magnesium 1.5. Chest x-ray poor inspiratory film no definite infiltrates noted. Patient received neb treatments, IV vancomycin and IV cefepime in the ER. Patient admitted for sepsis, febrile neutropenia, COPD exacerbation. Oncology and ID consulted. Patient also having significant abdominal pain, nausea, vomiting. CT abdomen and pelvis showed possible small bowel focal ileus or closed-loop obstruction, ventral hernia. Surgery was consulted suspect likely ileus. Patient continues to be nauseous. Patient seen and examined at bedside. She has been afebrile since 07/23. She continues to be nauseous, but no vomiting today. She is complaining of left lower abdominal pain, 2/10 in severity. She complains of 3 episodes of watery diarrhea, green and mucousy. She has no other complaints. General: tired appearing, no distress, appears at stated age Derm: warm, dry Head: atraumatic, normocephalic, symmetric Eyes: EOMI, no lid lag, anicteric sclera Mouth: no lip lesion, mucus membranes moist Cardiovascular: S1S2 reg, no murmur Lungs: CTA bilateral, no rhonchi, no rales , no accessory muscle use, supplemental oxygen Abdominal: soft, mild periumbilical tenderness to palpation, no guarding, no appreciable organomegaly Ext: no gross muscle atrophy, no edema, no contractures Neuro: no focal neuro deficits Psych: Alert, oriented, appropriate affect Neutropenic sepsis Ileus Hypokalemia Breast cancer status post cycle 1 chemotherapy Poorly controlled Type 2 diabetes with hyperglycemia, A1c 10.8 Resovled: COPD exacerbation Based on my assessment of this patient, this patient meets a high complexity level of care. I have reviewed the following regulatory affairs consultant notes: Surgery note 07/26, NPO except ice chips per Oncology, antibiotics per ID service, replace potassium. I have reviewed the results of the following tests: CBC shows WBC count of 2.5 and hemoglobin of 11.1. ANC is 1425. This is considerably improved since admission. BMP shows potassium of 3.2, chloride of 110, bicarb of 19 and glucose of 226 with calcium of 7.1. Magnesium is 2.5. I have ordered the following tests: Repeat CBC and BMP ordered for tomorrow morning to evaluate potassium and WBC count. I have discussed the care of this patient with the following independent historian: None. I have independently interpreted the following test below: None. I have discussed the management of this patient with the following physician: None. This patient has a high risk of morbidity due to the following reasons: Patient has an acute diagnosis of neutropenic sepsis that poses a threat to life or bodily function. She also has ileus that has not resolved. She received Filgastrim on 07/25. Her WBC count has improved to 2.5. T-max of 98.8 Fahrenheit over the past 24 hours. CRP elevated at 36.5. Pro-calcitonin elevated at 6.04. C. diff negative. Legionella antigen negative. Blood cultures negative at 72 and 48 hours. She is currently on cefepime 2 g IV every 8 hours along with Flagyl 500 mg IV every 8 hours. We'll discuss with oncology regarding advancing diet. Infectious workup so far negative. Infectious disease, general surgery and oncology on board. Objective - Vital Signs Vital signs: Vital Signs Temp 98.8 F 07/26/22 08:37 Pulse 80 07/26/22 11:41 Resp 18 07/26/22 11:34 BP 143/65 07/26/22 11:34 Pulse Ox 99 07/26/22 11:34 FiO2 Intake & Output 07/25/22 07/26/22 07/26/22 18:59 06:59 18:59 Intake Total 1300 Output Total 500 2000 Balance 800 -2000 Intake: Intake, IV Titration 1300 Amount Cefepime 2 gm In Sodium 100 Chloride 0.9% 100 ml @ 25 mls/hr IVPB Q8H [facility] Rx#: [id number] Potassium Chloride 10 meq 400 In Water For Injection 1 100ml.bag @ 100 mls/hr IVPB Q1HR [facility] Rx#: [id number] Sodium Chloride 0.9% 1, 700 000 ml @ 100 mls/hr IV . Q10H [facility] Rx#:[id number] metroNIDAZOLE-NS PMX 500 100 mg In Saline 1 100ml.bag @ 100 mls/hr IVPB Q8HR [facility] Rx#:[id number] Output: Urine 1900 Stool 100 Emesis 500 Other: Voiding Method Bedside Commode Bedside Commode Bedside Commode Diaper Diaper Diaper # Voids 1 # Bowel Movements 2 - Labs CBC & Chem 7: 07/26/22 08:18 07/26/22 08:18 Labs: Abnormal Lab Results - Last 24 Hours (Table) 07/25/22 07/25/22 07/26/22 Range/Units 16:15 20:00 06:04 WBC (3.8-10.6) k/uL RBC (3.80-5.40) m/uL Hgb (11.4-16.0) gm/dL Hct (34.0-46.0) % Plt Count (150-450) k/uL Lymphocytes # (Manual) (1.0-4.8) k/uL Metamyelocytes # (Man) (0) k/uL Nucleated RBCs (0-0) /100 WBC Potassium (3.5-5.1) mmol/L Chloride (98-107) mmol/L Carbon Dioxide (22-30) mmol/L Creatinine (0.52-1.04) mg/dL Glucose (74-99) mg/dL POC Glucose (mg/dL) 221 H 243 H 219 H (70-110) mg/dL Calcium (8.4-10.2) mg/dL Magnesium (1.6-2.3) mg/dL 07/26/22 07/26/22 07/26/22 Range/Units 08:18 08:18 08:18 WBC 2.5 L (3.8-10.6) k/uL RBC 3.47 L (3.80-5.40) m/uL Hgb 11.1 L (11.4-16.0) gm/dL Hct 33.0 L (34.0-46.0) % Plt Count 130 L (150-450) k/uL Lymphocytes # (Manual) 0.80 L (1.0-4.8) k/uL Metamyelocytes # (Man) 0.15 H (0) k/uL Nucleated RBCs 4 H (0-0) /100 WBC Potassium 3.2 L (3.5-5.1) mmol/L Chloride 110 H (98-107) mmol/L Carbon Dioxide 19 L (22-30) mmol/L Creatinine 0.49 L (0.52-1.04) mg/dL Glucose 226 H (74-99) mg/dL POC Glucose (mg/dL) (70-110) mg/dL Calcium 7.1 L (8.4-10.2) mg/dL Magnesium 2.5 H (1.6-2.3) mg/dL 07/26/22 Range/Units 11:44 WBC (3.8-10.6) k/uL RBC (3.80-5.40) m/uL Hgb (11.4-16.0) gm/dL Hct (34.0-46.0) % Plt Count (150-450) k/uL Lymphocytes # (Manual) (1.0-4.8) k/uL Metamyelocytes # (Man) (0) k/uL Nucleated RBCs (0-0) /100 WBC Potassium (3.5-5.1) mmol/L Chloride (98-107) mmol/L Carbon Dioxide (22-30) mmol/L Creatinine (0.52-1.04) mg/dL Glucose (74-99) mg/dL POC Glucose (mg/dL) 226 H (70-110) mg/dL Calcium (8.4-10.2) mg/dL Magnesium (1.6-2.3) mg/dL Microbiology - Last 24 Hours (Table) 07/24/22 07:48 Blood Culture - Preliminary Blood No Growth after 48 hours 07/22/22 14:24 Blood Culture - Preliminary Blood No Growth after 72 hours 07/22/22 14:24 Blood Culture - Preliminary Blood No Growth after 72 hours
[2022-07-26 16:40] LABS: Glucose,Whole Blood 252 mg/dL (70-110)
--- NOTE | 2022-07-26 16:53 | P.PN ---
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 She had diarrhea very early in the morning, none since. She is reporting that she has an appetite. Objective - Vital Signs Vital signs: Vital Signs Temp 98.8 F 07/26/22 08:37 Pulse 80 07/26/22 15:21 Resp 18 07/26/22 14:00 BP 143/65 07/26/22 11:34 Pulse Ox 99 07/26/22 11:34 FiO2 Intake & Output 07/25/22 07/26/22 07/26/22 18:59 06:59 18:59 Intake Total 1300 Output Total 500 2000 Balance 800 -2000 Intake: Intake, IV Titration 1300 Amount Cefepime 2 gm In Sodium 100 Chloride 0.9% 100 ml @ 25 mls/hr IVPB Q8H [facility] Rx#: [id number] Potassium Chloride 10 meq 400 In Water For Injection 1 100ml.bag @ 100 mls/hr IVPB Q1HR [facility] Rx#: [id number] Sodium Chloride 0.9% 1, 700 000 ml @ 100 mls/hr IV . Q10H [facility] Rx#:[id number] metroNIDAZOLE-NS PMX 500 100 mg In Saline 1 100ml.bag @ 100 mls/hr IVPB Q8HR [facility] Rx#:[id number] Output: Urine 1900 Stool 100 Emesis 500 Other: Voiding Method Bedside Commode Bedside Commode Bedside Commode Diaper Diaper Diaper # Voids 1 # Bowel Movements 2 - Constitutional General appearance: Present: cooperative, no acute distress, obese - EENT Eyes: Present: anicteric sclerae, EOMI ENT: Present: hearing grossly normal - Respiratory Respiratory: bilateral: CTA - Cardiovascular Rhythm: regular - Peripheral edema leg Peripheral Edema: bilateral: None - Gastrointestinal General gastrointestinal: Present: normal bowel sounds, soft. Absent: absent bowel sounds, decreased bowel sounds, distended, hepatomegaly, hyperactive bowel sounds, organomegaly, rigid, scaphoid, splenomegaly, tenderness, umbilical hernia, ventral hernia - Integumentary Integumentary: Present: normal - Neurologic Neurologic: Present: CNII-XII intact - Musculoskeletal Musculoskeletal: Present: strength equal bilaterally - Psychiatric Psychiatric: Present: A&O x's 3, appropriate affect, intact judgment & insight - Labs CBC & Chem 7: 07/26/22 08:18 07/26/22 08:18 Labs: Abnormal Lab Results - Last 24 Hours (Table) 07/25/22 07/26/22 07/26/22 Range/Units 20:00 06:04 08:18 WBC (3.8-10.6) k/uL RBC (3.80-5.40) m/uL Hgb (11.4-16.0) gm/dL Hct (34.0-46.0) % Plt Count (150-450) k/uL Lymphocytes # (Manual) (1.0-4.8) k/uL Metamyelocytes # (Man) (0) k/uL Nucleated RBCs (0-0) /100 WBC Potassium 3.2 L (3.5-5.1) mmol/L Chloride 110 H (98-107) mmol/L Carbon Dioxide 19 L (22-30) mmol/L Creatinine 0.49 L (0.52-1.04) mg/dL Glucose 226 H (74-99) mg/dL POC Glucose (mg/dL) 243 H 219 H (70-110) mg/dL Calcium 7.1 L (8.4-10.2) mg/dL Magnesium (1.6-2.3) mg/dL 07/26/22 07/26/22 07/26/22 Range/Units 08:18 08:18 11:44 WBC 2.5 L (3.8-10.6) k/uL RBC 3.47 L (3.80-5.40) m/uL Hgb 11.1 L (11.4-16.0) gm/dL Hct 33.0 L (34.0-46.0) % Plt Count 130 L (150-450) k/uL Lymphocytes # (Manual) 0.80 L (1.0-4.8) k/uL Metamyelocytes # (Man) 0.15 H (0) k/uL Nucleated RBCs 4 H (0-0) /100 WBC Potassium (3.5-5.1) mmol/L Chloride (98-107) mmol/L Carbon Dioxide (22-30) mmol/L Creatinine (0.52-1.04) mg/dL Glucose (74-99) mg/dL POC Glucose (mg/dL) 226 H (70-110) mg/dL Calcium (8.4-10.2) mg/dL Magnesium 2.5 H (1.6-2.3) mg/dL 07/26/22 Range/Units 16:37 WBC (3.8-10.6) k/uL RBC (3.80-5.40) m/uL Hgb (11.4-16.0) gm/dL Hct (34.0-46.0) % Plt Count (150-450) k/uL Lymphocytes # (Manual) (1.0-4.8) k/uL Metamyelocytes # (Man) (0) k/uL Nucleated RBCs (0-0) /100 WBC Potassium (3.5-5.1) mmol/L Chloride (98-107) mmol/L Carbon Dioxide (22-30) mmol/L Creatinine (0.52-1.04) mg/dL Glucose (74-99) mg/dL POC Glucose (mg/dL) 252 H (70-110) mg/dL Calcium (8.4-10.2) mg/dL Magnesium (1.6-2.3) mg/dL Microbiology - Last 24 Hours (Table) 07/22/22 14:24 Blood Culture - Preliminary Blood No Growth after 96 hours 07/22/22 14:24 Blood Culture - Preliminary Blood No Growth after 96 hours 07/24/22 07:48 Blood Culture - Preliminary Blood No Growth after 48 hours Assessment and Plan (1) Febrile neutropenia Current Visit: Yes Status: Acute Priority: High Code(s): D70.9 - NEUTROPENIA, UNSPECIFIED; R50.81 - FEVER PRESENTING WITH CONDITIONS CLASSIFIED ELSEWHERE SNOMED Code(s): 956865777 (2) Neutropenic typhlitis Current Visit: Yes Status: Acute Priority: High Code(s): K37 - UNSPECIFIED APPENDICITIS; D70.9 - NEUTROPENIA, UNSPECIFIED SNOMED Code(s): 5690108 (3) Breast cancer Current Visit: Yes Status: Acute Priority: High Code(s): C50.919 - MALIGNANT NEOPLASM OF UNSP SITE OF UNSPECIFIED FEMALE BREAST SNOMED Code(s): 951577067 (4) Pancytopenia due to chemotherapy Current Visit: Yes Status: Acute Priority: Medium Code(s): D61.810 - ANTINEOPLASTIC CHEMOTHERAPY INDUCED PANCYTOPENIA SNOMED Code(s): 9552591 Plan: Febrile neutropenia -2/2 chemo -GCSF ordered -CBC with diff daily. ANC 1400, stop GCSF after todays dose -agree with abx coverage -ID following Neutropenic typhilitis -rebound discomfort on exam, resolved today -GCSF started -advance to clear liquids -Surgery following Pancytopenia -2/2 chemo -GCSF started, WBC 2.5 today -Anemia and thrombocytopenia mild, improving, not requiring intervention at this time -CBC monitoring while inpt Triple neg breast cancer -f/u with her primary Oncologist once she is discharged prior to resuming any treatment
[2022-07-26] MEDS: FILGRASTIM-SNDZ 480 MCG/0.8 ML SYRINGE SQ SCH (17:41)
[2022-07-26] MEDS: SALT AND SODA MOUTHWASH 1,000 ML PO SCH ×2 (18:38→20:35)
--- NOTE | 2022-07-26 18:48 | P.PN ---
Subjective Progress Note Date: 07/26/22 Principal diagnosis: Febrile neutropenia Patient is a 56-year female with a past medical history taken for diabetes mellitus hypertension COPD patient did have a history of right breast cancer on chemotherapy last chemo was about a week ago on the Monday 2 days later on patient started not feeling well symptom has been mostly nausea and vomiting and did have some diarrhea, patient was noticed to be febrile and did have a low white count patient did have a CT abdominal pelvis suggestive of ileus and abdominal hernia but no strangulation on today's evaluation that is 07/26/2022, the patient remains to be afebrile, the patient is breathing comfortably on room air , the patient feeling better no further vomiting and abdominal discomfort has decreased in intensity and did have a bowel movement and no chest pain shortness of breath or cough Objective - Vital Signs Vital signs: Vital Signs Temp 98.8 F 07/26/22 08:37 Pulse 80 07/26/22 11:41 Resp 18 07/26/22 11:34 BP 143/65 07/26/22 11:34 Pulse Ox 99 07/26/22 11:34 FiO2 Intake & Output 07/25/22 07/26/22 07/26/22 18:59 06:59 18:59 Intake Total 1300 Output Total 500 2000 Balance 800 -2000 Intake: Intake, IV Titration 1300 Amount Cefepime 2 gm In Sodium 100 Chloride 0.9% 100 ml @ 25 mls/hr IVPB Q8H [facility] Rx#: [id number] Potassium Chloride 10 meq 400 In Water For Injection 1 100ml.bag @ 100 mls/hr IVPB Q1HR [facility] Rx#: [id number] Sodium Chloride 0.9% 1, 700 000 ml @ 100 mls/hr IV . Q10H [facility] Rx#:[id number] metroNIDAZOLE-NS PMX 500 100 mg In Saline 1 100ml.bag @ 100 mls/hr IVPB Q8HR [facility] Rx#:[id number] Output: Urine 1900 Stool 100 Emesis 500 Other: Voiding Method Bedside Commode Bedside Commode Bedside Commode Diaper Diaper Diaper # Bowel Movements 2 - Exam GENERAL DESCRIPTION: Middle-age female up in the chair in no distress RESPIRATORY SYSTEM: Unlabored breathing , decreased breath sounds at bases HEART: S1 S2 regular rate and rhythm , ABDOMEN: Soft , mild distention but no tenderness EXTREMITIES: No edema feet - Labs CBC & Chem 7: 07/26/22 08:18 07/26/22 08:18 Labs: Abnormal Lab Results - Last 24 Hours (Table) 07/25/22 07/25/22 07/26/22 Range/Units 16:15 20:00 06:04 WBC (3.8-10.6) k/uL RBC (3.80-5.40) m/uL Hgb (11.4-16.0) gm/dL Hct (34.0-46.0) % Plt Count (150-450) k/uL Lymphocytes # (Manual) (1.0-4.8) k/uL Metamyelocytes # (Man) (0) k/uL Nucleated RBCs (0-0) /100 WBC Potassium (3.5-5.1) mmol/L Chloride (98-107) mmol/L Carbon Dioxide (22-30) mmol/L Creatinine (0.52-1.04) mg/dL Glucose (74-99) mg/dL POC Glucose (mg/dL) 221 H 243 H 219 H (70-110) mg/dL Calcium (8.4-10.2) mg/dL Magnesium (1.6-2.3) mg/dL 07/26/22 07/26/22 07/26/22 Range/Units 08:18 08:18 08:18 WBC 2.5 L (3.8-10.6) k/uL RBC 3.47 L (3.80-5.40) m/uL Hgb 11.1 L (11.4-16.0) gm/dL Hct 33.0 L (34.0-46.0) % Plt Count 130 L (150-450) k/uL Lymphocytes # (Manual) 0.80 L (1.0-4.8) k/uL Metamyelocytes # (Man) 0.15 H (0) k/uL Nucleated RBCs 4 H (0-0) /100 WBC Potassium 3.2 L (3.5-5.1) mmol/L Chloride 110 H (98-107) mmol/L Carbon Dioxide 19 L (22-30) mmol/L Creatinine 0.49 L (0.52-1.04) mg/dL Glucose 226 H (74-99) mg/dL POC Glucose (mg/dL) (70-110) mg/dL Calcium 7.1 L (8.4-10.2) mg/dL Magnesium 2.5 H (1.6-2.3) mg/dL 07/26/22 Range/Units 11:44 WBC (3.8-10.6) k/uL RBC (3.80-5.40) m/uL Hgb (11.4-16.0) gm/dL Hct (34.0-46.0) % Plt Count (150-450) k/uL Lymphocytes # (Manual) (1.0-4.8) k/uL Metamyelocytes # (Man) (0) k/uL Nucleated RBCs (0-0) /100 WBC Potassium (3.5-5.1) mmol/L Chloride (98-107) mmol/L Carbon Dioxide (22-30) mmol/L Creatinine (0.52-1.04) mg/dL Glucose (74-99) mg/dL POC Glucose (mg/dL) 226 H (70-110) mg/dL Calcium (8.4-10.2) mg/dL Magnesium (1.6-2.3) mg/dL Microbiology - Last 24 Hours (Table) 07/24/22 07:48 Blood Culture - Preliminary Blood No Growth after 48 hours 07/22/22 14:24 Blood Culture - Preliminary Blood No Growth after 72 hours 07/22/22 14:24 Blood Culture - Preliminary Blood No Growth after 72 hours Assessment and Plan (1) Febrile neutropenia Current Visit: Yes Status: Acute Priority: High Code(s): D70.9 - NEUTROPENIA, UNSPECIFIED; R50.81 - FEVER PRESENTING WITH CONDITIONS CLASSIFIED ELSEWHERE SNOMED Code(s): 322214512 Plan: 1patient was in the hospital with febrile neutropenia predominantly has GI symptoms of nausea and vomiting also complaining of shortness of breath with initial chest x-raymedical abnormality patient did have a CT of abdominal pelvis completed this afternoon with evidence of small bowel obstruction ventral hernia but no evidence of any strangulation more likely dealing with abdominal source and need to cover for the enteric gram-negative both aerobes and anaerobes 2-patient has been evaluated general surgery and recommending observation 3-patient seemed to showing some clinical improvement the patient fever has resolved white count is up to 2.5 today culture had been negative to continue with the cefepime and Flagyl and monitor clinical course closely Time with Patient: Less than 30
[2022-07-26 20:06] LABS: Glucose,Whole Blood 261 mg/dL (70-110)
[2022-07-26] MEDS: ATORVASTATIN 40 MG TAB PO SCH (20:33)
[2022-07-26] MEDS: ONDANSETRON 4 MG/2 ML VIAL IVP PRN (20:34)
[2022-07-26] MEDS: MAG HYDROX/AL HYDROX/SIMETH 30 ML CUP PO PRN (20:43)
[2022-07-26] MEDS: FLUTICASONE 110 MCG INHALER INHALATION PRN (21:47)
[2022-07-27] MEDS: SALT AND SODA MOUTHWASH 1,000 ML PO SCH ×6 (00:01→23:20)
[2022-07-27] MEDS: metroNIDAZOLE-NS PMX 500 MG in SALINE 1 100ML.BAG IVPB SCH ×4 (00:01→23:19)
[2022-07-27] MEDS: methylPREDNISolone SOD SUCCI 40 MG/ML 1 ML VIAL IV SCH ×3 (00:02→11:26)
[2022-07-27] MEDS: ONDANSETRON 4 MG/2 ML VIAL IVP PRN ×2 (03:40→20:11)
[2022-07-27] MEDS: SODIUM CHLORIDE 0.9% 1,000 ML IV SCH ×2 (04:18→19:51)
[2022-07-27 06:01] LABS: Glucose,Whole Blood 264 mg/dL (70-110)
[2022-07-27] MEDS: INSULIN DETEMIR (LEVEMIR) 100 UNIT/ML SYR SQ SCH (06:18)
[2022-07-27] MEDS: INSULIN ASPART (NovoLOG) 100 UNIT/ML VIAL SQ SCH ×4 (06:18→20:11)
[2022-07-27] MEDS: CEFEPIME 2 GM in SODIUM CHLORIDE 0.9% 100 ML IVPB SCH ×3 (06:19→21:27)
[2022-07-27] MEDS: ACETAMINOPHEN TAB 325 MG TAB PO PRN (06:19)
[2022-07-27] MEDS: IPRATROPIUM-ALBUTEROL 3 ML NEB INHALATION SCH ×4 (08:33→22:19)
[2022-07-27] MEDS: ENOXAPARIN 40 MG/0.4 ML SYRINGE SQ SCH (08:46)
[2022-07-27] MEDS: FENOFIBRATE 160 MG TAB PO SCH (08:47)
[2022-07-27] MEDS: CHOLECALCIFEROL 125 MCG (5000 IU) TABLET PO SCH (08:47)
[2022-07-27] MEDS: CYANOCOBALAMIN 500 MCG TAB PO SCH (08:47)
[2022-07-27] MEDS: PANTOPRAZOLE 40 MG TABLET PO SCH (08:47)
[2022-07-27] MEDS: LORATADINE 10 MG TAB PO SCH (08:47)
[2022-07-27] MEDS: ASPIRIN 81 MG PO SCH (08:48)
[2022-07-27] MEDS: CITALOPRAM HYDROBROMIDE 20 MG TAB PO SCH (08:48)
[2022-07-27] MEDS: DULoxetine HCL 30 MG CAPSULE.DR PO SCH ×2 (08:48→20:13)
[2022-07-27] MEDS: AMMONIUM LACTATE 12% LOTION 225 GM BTL TOPICAL SCH (08:48)
[2022-07-27] MEDS: MULTIVITAMINS, THERA 1 EACH TAB PO SCH (08:48)
[2022-07-27 10:39] LABS: HCT 34.8 % (34.0-46.0); HGB 11.7 gm/dL (11.4-16.0); MCH 31.8 pg (25.0-35.0); MCHC 33.7 g/dL (31.0-37.0); MCV 94.4 fL (80.0-100.0); Mean Platelet Volume 11.5; Platelet Count 144 k/uL (150-450); RBC 3.69 m/uL (3.80-5.40); RDW 14.4 % (11.5-15.5)
[2022-07-27 10:50] LABS: African American GFR (CKD) >90 (>60 ml/min/1.73 sqM); Anion Gap 7 mmol/L; Blood Urea Nitrogen 14 mg/dL (7-17); Calcium 6.9 mg/dL (8.4-10.2); Carbon Dioxide 19 mmol/L (22-30); Chloride 111 mmol/L (98-107); Glucose 237 mg/dL (74-99); Non-African American GFR(CKD) >90 (>60 ml/min/1.73 sqM); Potassium 3.8 mmol/L (3.5-5.1); Sodium 137 mmol/L (137-145)
[2022-07-27] MEDS: KETOROLAC 15 MG/ML 1 ML VIAL IVP SCH ×3 (11:27→23:19)
[2022-07-27 11:40] LABS: Glucose,Whole Blood 278 mg/dL (70-110)
--- NOTE | 2022-07-27 11:40 | P.PN ---
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 She tolerated her diet yesterday, no N,V, D, oral irritation is improved. Objective - Vital Signs Vital signs: Vital Signs Temp 97.4 F L 07/27/22 08:44 Pulse 83 07/27/22 08:44 Resp 18 07/27/22 08:44 BP 165/95 07/27/22 08:44 Pulse Ox 100 07/27/22 08:44 FiO2 Intake & Output 07/26/22 07/27/22 07/27/22 18:59 06:59 18:59 Intake Total 240 Output Total 450 Balance -450 240 Intake: Oral 240 Output: Urine 350 Stool 100 Other: Voiding Method Bedside Commode Bedside Commode Toilet Diaper Diaper # Voids 1 2 # Bowel Movements 1 - Constitutional General appearance: Present: cooperative, mild distress, morbidly obese - EENT EENT Comment(s): dry mucus membranes Eyes: Present: anicteric sclerae, EOMI ENT: Present: hearing grossly normal - Respiratory Details: resp even and unlabored at rest - Cardiovascular Details: finn warm and dry to touch - Peripheral edema leg Peripheral Edema: bilateral: None - Gastrointestinal General gastrointestinal: Present: normal bowel sounds, soft. Absent: absent bowel sounds, decreased bowel sounds, distended, hepatomegaly, hyperactive bowel sounds, organomegaly, rigid, scaphoid, splenomegaly, tenderness, umbilical hernia, ventral hernia - Integumentary Integumentary: Present: normal - Neurologic Neurologic: Present: CNII-XII intact - Musculoskeletal Musculoskeletal: Present: generalized weakness, strength equal bilaterally - Psychiatric Psychiatric: Present: A&O x's 3, appropriate affect, intact judgment & insight - Labs CBC & Chem 7: 07/27/22 08:54 07/27/22 08:54 Labs: Abnormal Lab Results - Last 24 Hours (Table) 07/26/22 07/26/22 07/26/22 Range/Units 08:18 11:44 16:37 RBC (3.80-5.40) m/uL Plt Count (150-450) k/uL Chloride (98-107) mmol/L Carbon Dioxide (22-30) mmol/L Creatinine (0.52-1.04) mg/dL Glucose (74-99) mg/dL POC Glucose (mg/dL) 226 H 252 H (70-110) mg/dL Calcium (8.4-10.2) mg/dL Magnesium 2.5 H (1.6-2.3) mg/dL 07/26/22 07/27/22 07/27/22 Range/Units 20:02 05:58 08:54 RBC 3.69 L (3.80-5.40) m/uL Plt Count 144 L (150-450) k/uL Chloride (98-107) mmol/L Carbon Dioxide (22-30) mmol/L Creatinine (0.52-1.04) mg/dL Glucose (74-99) mg/dL POC Glucose (mg/dL) 261 H 264 H (70-110) mg/dL Calcium (8.4-10.2) mg/dL Magnesium (1.6-2.3) mg/dL 07/27/22 Range/Units 08:54 RBC (3.80-5.40) m/uL Plt Count (150-450) k/uL Chloride 111 H (98-107) mmol/L Carbon Dioxide 19 L (22-30) mmol/L Creatinine 0.44 L (0.52-1.04) mg/dL Glucose 237 H (74-99) mg/dL POC Glucose (mg/dL) (70-110) mg/dL Calcium 6.9 L (8.4-10.2) mg/dL Magnesium (1.6-2.3) mg/dL Microbiology - Last 24 Hours (Table) 07/24/22 07:48 Blood Culture - Preliminary Blood No Growth after 72 hours 07/22/22 14:24 Blood Culture - Preliminary Blood No Growth after 96 hours 07/22/22 14:24 Blood Culture - Preliminary Blood No Growth after 96 hours Assessment and Plan (1) Febrile neutropenia Current Visit: Yes Status: Resolved Priority: High Code(s): D70.9 - NEUTROPENIA, UNSPECIFIED; R50.81 - FEVER PRESENTING WITH CONDITIONS CLASSIFIED ELSEWHERE SNOMED Code(s): 389953304 (2) Neutropenic typhlitis Current Visit: Yes Status: Resolved Priority: High Code(s): K37 - UNSPECIFIED APPENDICITIS; D70.9 - NEUTROPENIA, UNSPECIFIED SNOMED Code(s): 0444696 (3) Breast cancer Current Visit: Yes Status: Acute Priority: High Code(s): C50.919 - MALIGNANT NEOPLASM OF UNSP SITE OF UNSPECIFIED FEMALE BREAST SNOMED Code(s): 535053216 (4) Pancytopenia due to chemotherapy Current Visit: Yes Status: Acute Priority: Medium Code(s): D61.810 - ANTINEOPLASTIC CHEMOTHERAPY INDUCED PANCYTOPENIA SNOMED Code(s): 6068688 Plan: Febrile neutropenia -2/2 chemo -GCSF given, neutropenia resolved, no fevers. -agree with abx coverage, per ID, to completion of recommended course Neutropenic typhilitis -no rebound discomfort on exam, resolved -advance diet as tolerated -Surgery following Pancytopenia -2/2 chemo -GCSF started, WBC 8.6 today -Anemia resolved, thrombocytopenia, resolved-plt 144K Triple neg breast cancer -f/u with her primary Oncologist once she is discharged prior to resuming any treatment Case was discussed with Director Of Accounting. PT recommending rehab. Provided CM with Primary Onc name to contact him directly re: rehab stay.
[2022-07-27 12:22] LABS: Band Neutrophils % 15 %; Lymphocytes # (M) 1.31 k/uL (1.0-4.8); Monocytes # (M) 0.66 k/uL (0-1.0); Neutrophils % (M) 61 %; Nucleated Red Blood Cells 5 /100 WBC (0-0); Total Cells Counted 100; WBC 8.2 k/uL (3.8-10.6)
[2022-07-27] MEDS: MAG HYDROX/AL HYDROX/SIMETH 30 ML CUP PO PRN (12:53)
--- NOTE | 2022-07-27 13:49 | P.PN ---
Subjective Progress Note Date: 07/27/22 CHIEF COMPLAINT: Abdominal pain HISTORY OF PRESENT ILLNESS: Patient was lying in bed comfortably. She reports the frequency of diarrhea is decreasing. Stools are nonbloody. Her abdominal pain has resolved. She did have a little bit of nausea this morning that has resolved. Afebrile. WBC has normalized to 8.2HP is 1.7 platelets are 144 sodium is 137 potassium is 3.8 creatinine 0.44 PHYSICAL EXAM: VITAL SIGNS: Reviewed. GENERAL: Well-developed in no acute distress. HEENT: No sclera icterus. Extraocular movements grossly intact. Moist buccal mucosa. Head is atraumatic, normocephalic. ABDOMEN: Soft. Nondistended. Nontender Reducible umbilical hernia. NEUROLOGIC: Alert and oriented. Cranial nerves II through XII grossly intact. ASSESSMENT: 1. Ileus 2. Reducible umbilical hernia 3. Neutropenic sepsis 4. Triple negative breast cancer 5. Hypokalemia resolved PLAN: -Oncology has advanced diet to full liquids -Antibiotics per ID service -Continue supportive care Physician Fur Trimmer note has been reviewed by physician. Signing provider agrees with the documented findings, assessment, and plan of care. I have personally seen and examined the patient, reviewed the [employer]ER /PAs history, exam and MDM and agree with the assessment and plan as written. Based on total visit time, I have performed more than 50% of the visit. As above: Patient seems to be doing better today. Pain continues to slowly decrease. Tolerating clear liquids at this time. Leukopenia improved. We'll reevaluate tomorrow. Objective - Vital Signs Vital signs: Vital Signs Temp 97.6 F 07/27/22 12:00 Pulse 80 07/27/22 12:19 Resp 15 07/27/22 12:19 BP 168/99 07/27/22 12:00 Pulse Ox 98 07/27/22 12:00 FiO2 Intake & Output 07/26/22 07/27/22 07/27/22 18:59 06:59 18:59 Intake Total 240 Output Total 450 Balance -450 240 Weight 116 kg Intake: Oral 240 Output: Urine 350 Stool 100 Other: Voiding Method Bedside Commode Bedside Commode Toilet Diaper Diaper # Voids 1 2 # Bowel Movements 1 - Labs CBC & Chem 7: 07/27/22 08:54 07/27/22 08:54 Labs: Abnormal Lab Results - Last 24 Hours (Table) 07/26/22 07/26/22 07/27/22 Range/Units 16:37 20:02 05:58 RBC (3.80-5.40) m/uL Plt Count (150-450) k/uL Nucleated RBCs (0-0) /100 WBC Chloride (98-107) mmol/L Carbon Dioxide (22-30) mmol/L Creatinine (0.52-1.04) mg/dL Glucose (74-99) mg/dL POC Glucose (mg/dL) 252 H 261 H 264 H (70-110) mg/dL Calcium (8.4-10.2) mg/dL 07/27/22 07/27/22 07/27/22 Range/Units 08:54 08:54 11:38 RBC 3.69 L (3.80-5.40) m/uL Plt Count 144 L (150-450) k/uL Nucleated RBCs 5 H (0-0) /100 WBC Chloride 111 H (98-107) mmol/L Carbon Dioxide 19 L (22-30) mmol/L Creatinine 0.44 L (0.52-1.04) mg/dL Glucose 237 H (74-99) mg/dL POC Glucose (mg/dL) 278 H (70-110) mg/dL Calcium 6.9 L (8.4-10.2) mg/dL Microbiology - Last 24 Hours (Table) 07/24/22 07:48 Blood Culture - Preliminary Blood No Growth after 72 hours 07/22/22 14:24 Blood Culture - Preliminary Blood No Growth after 96 hours 07/22/22 14:24 Blood Culture - Preliminary Blood No Growth after 96 hours
--- NOTE | 2022-07-27 14:34 | P.PN ---
Subjective Progress Note Date: 07/27/22 Principal diagnosis: Febrile neutropenia Patient is a 56-year female with a past medical history taken for diabetes mellitus hypertension COPD patient did have a history of right breast cancer on chemotherapy last chemo was about a week ago on the Monday 2 days later on patient started not feeling well symptom has been mostly nausea and vomiting and did have some diarrhea, patient was noticed to be febrile and did have a low white count patient did have a CT abdominal pelvis suggestive of ileus and abdominal hernia but no strangulation on today's evaluation that is 07/27/2022, the patient continues to be afebrile, the patient is breathing comfortably on room air , the patient complaining of some abdominal discomfort nausea and did have diarrhea currently on a clear liquid diet and no chest pain shortness of breath or cough Objective - Vital Signs Vital signs: Vital Signs Temp 97.6 F 07/27/22 12:00 Pulse 80 07/27/22 12:19 Resp 15 07/27/22 12:19 BP 168/99 07/27/22 12:00 Pulse Ox 98 07/27/22 12:00 FiO2 Intake & Output 07/26/22 07/27/22 07/27/22 18:59 06:59 18:59 Intake Total 240 Output Total 450 Balance -450 240 Weight 116 kg Intake: Oral 240 Output: Urine 350 Stool 100 Other: Voiding Method Bedside Commode Bedside Commode Toilet Diaper Diaper # Voids 1 2 # Bowel Movements 1 - Exam GENERAL DESCRIPTION: Middle-age female up in the chair in no distress RESPIRATORY SYSTEM: Unlabored breathing , decreased breath sounds at bases HEART: S1 S2 regular rate and rhythm , ABDOMEN: Soft , mild distention but no tenderness EXTREMITIES: No edema feet - Labs CBC & Chem 7: 07/27/22 08:54 07/27/22 08:54 Labs: Abnormal Lab Results - Last 24 Hours (Table) 07/26/22 07/26/22 07/27/22 Range/Units 16:37 20:02 05:58 RBC (3.80-5.40) m/uL Plt Count (150-450) k/uL Nucleated RBCs (0-0) /100 WBC Chloride (98-107) mmol/L Carbon Dioxide (22-30) mmol/L Creatinine (0.52-1.04) mg/dL Glucose (74-99) mg/dL POC Glucose (mg/dL) 252 H 261 H 264 H (70-110) mg/dL Calcium (8.4-10.2) mg/dL 07/27/22 07/27/22 07/27/22 Range/Units 08:54 08:54 11:38 RBC 3.69 L (3.80-5.40) m/uL Plt Count 144 L (150-450) k/uL Nucleated RBCs 5 H (0-0) /100 WBC Chloride 111 H (98-107) mmol/L Carbon Dioxide 19 L (22-30) mmol/L Creatinine 0.44 L (0.52-1.04) mg/dL Glucose 237 H (74-99) mg/dL POC Glucose (mg/dL) 278 H (70-110) mg/dL Calcium 6.9 L (8.4-10.2) mg/dL Microbiology - Last 24 Hours (Table) 07/24/22 07:48 Blood Culture - Preliminary Blood No Growth after 72 hours 07/22/22 14:24 Blood Culture - Preliminary Blood No Growth after 96 hours 07/22/22 14:24 Blood Culture - Preliminary Blood No Growth after 96 hours Assessment and Plan (1) Febrile neutropenia Current Visit: Yes Status: Resolved Priority: High Code(s): D70.9 - NEUTROPENIA, UNSPECIFIED; R50.81 - FEVER PRESENTING WITH CONDITIONS CLASSIFIED ELSEWHERE SNOMED Code(s): 395807598 Plan: 1patient was in the hospital with febrile neutropenia predominantly has GI symptoms of nausea and vomiting also complaining of shortness of breath with initial chest x-raymedical abnormality patient did have a CT of abdominal pelvis completed this afternoon with evidence of small bowel obstruction ventral hernia but no evidence of any strangulation more likely dealing with abdominal source and need to cover for the enteric gram-negative both aerobes and an aerobes 2-patient has been evaluated general surgery currently being treated medically 3-patient did have minimal clinical improvement the patient fever has resolved and the patient white count has normalized, patient to continue cefepime and Flagyl and monitor clinical course closely Time with Patient: Less than 30
--- NOTE | 2022-07-27 15:34 | US ---
EXAMINATION TYPE: US venous doppler duplex UE LT DATE OF EXAM: 07/27/2022 COMPARISON: NONE CLINICAL HISTORY: pain in upper arm and swelling. pain within upper left arm, h/o IV sites SIDE PERFORMED: Left Left Arm: Negative for DVT superficial thrombus seen within forearm in cephalic vein IMPRESSION: 1. No evidence for deep vein to most of the left upper kidney. 2. Superficial thrombophlebitis within the left cephalic vein.
[2022-07-27 16:28] LABS: Glucose,Whole Blood 352 mg/dL (70-110)
--- NOTE | 2022-07-27 16:46 | P.PN ---
Subjective Progress Note Date: 07/27/22 86-year-old female patient with a past medical history significant for COPD/asthma not on home oxygen, nonsmoker, hypertension, diabetes mellitus type 2, breast cancer in the right breast receiving chemotherapy currently presented with shortness of breath, wheezing, productive cough. In the ER, Labs showed White cell count was 0.6, PT 12.5, INR 1.2, sodium 132, bicarb 19, glucose 425, lactic acid 3.8, calcium 7.0, phosphorus 1.8, magnesium 1.5. Chest x-ray poor inspiratory film no definite infiltrates noted. Patient received neb treatments, IV vancomycin and IV cefepime in the ER. Patient admitted for sepsis, febrile neutropenia, COPD exacerbation. Oncology and ID consulted. Patient also having significant abdominal pain, nausea, vomiting. CT abdomen and pelvis showed possible small bowel focal ileus or closed-loop obstruction, ventral hernia. Surgery was consulted suspect likely ileus. Patient continues to be nauseous. Patient seen and examined at bedside. She has been afebrile since 07/23. Her nausea, vomiting and abdominal pain has significantly improved. She reports 2 bowel movements, unable to describe. She complains of LUE pain that started this morning when she woke up. She is barely able to move her arm. She describes her pain as muscular but goes deep into the bone. General: tired appearing, no distress, appears at stated age Derm: warm, dry Head: atraumatic, normocephalic, symmetric Eyes: EOMI, no lid lag, anicteric sclera Mouth: no lip lesion, mucus membranes moist Cardiovascular: S1S2 reg, no murmur Lungs: CTA bilateral, no rhonchi, no rales , no accessory muscle use, supplemental oxygen Abdominal: soft, mild periumbilical tenderness to palpation, no guarding, no appreciable organomegaly Ext: no gross muscle atrophy, no edema, no contractures Neuro: no focal neuro deficits Psych: Alert, oriented, appropriate affect Neutropenic sepsis LUE pain Ileus Breast cancer status post cycle 1 chemotherapy Poorly controlled Type 2 diabetes with hyperglycemia, A1c 10.8 Resovled: COPD exacerbation, Hypokalemia Based on my assessment of this patient, this patient meets a moderate complexity level of care. I have reviewed the following talent acquisition consultant notes: Surgery note 07/27, full liquids per Oncology, antibiotics per ID service Infectious disease note 07/27, continue cefepime and flagyl I have reviewed the results of the following tests: CBC shows WBC count of 8.2 and platelet count of 144. This is considerably improved since admission. BMP shows chloride of 111, bicarb of 19 and glucose of 237 with calcium of 6.9. Venous doppler shows superficial thrombophlebitis. I have ordered the following tests: None. I have discussed the care of this patient with the following independent historian: None. I have independently interpreted the following test below: None. I have discussed the management of this patient with the following physician: None. This patient has a moderate risk of morbidity due to the following reasons: Patient has an acute diagnosis of neutropenic sepsis that poses a threat to life or bodily function. She also has ileus that is resolving. She received Filgastrim on 07/25. Her leukopenia has resolved. T-max of 98.2 Fahrenheit over the past 24 hours. CRP elevated at 36.5. Pro-calcitonin elevated at 6.04. C. diff negative. Legionella antigen negative. Blood cultures negative at 120 and 72 hours. She is currently on cefepime 2 g IV every 8 hours along with Flagyl 500 mg IV every 8 hours. Full liquid diet and advance. Infectious workup so far negative. Switch Solumedrol to Prednisone which should help with hyperglycemia. Switch low dose sliding scale to medium dose. Infectious disease, general surgery and oncology on board. She is medically stable. She is insurance authorization for SNF. Objective - Vital Signs Vital signs: Vital Signs Temp 97.6 F 07/27/22 12:00 Pulse 78 07/27/22 16:29 Resp 15 07/27/22 16:29 BP 168/99 07/27/22 12:00 Pulse Ox 98 07/27/22 12:00 FiO2 Intake & Output 07/26/22 07/27/22 07/27/22 18:59 06:59 18:59 Intake Total 598 Output Total 450 1 Balance -450 597 Weight 116 kg Intake: Oral 598 Output: Urine 350 1 Stool 100 Other: Voiding Method Bedside Commode Bedside Commode Toilet Diaper Diaper # Voids 1 2 # Bowel Movements 1 1 - Labs CBC & Chem 7: 07/27/22 08:54 07/27/22 08:54 Labs: Abnormal Lab Results - Last 24 Hours (Table) 07/26/22 07/26/22 07/27/22 Range/Units 16:37 20:02 05:58 RBC (3.80-5.40) m/uL Plt Count (150-450) k/uL Nucleated RBCs (0-0) /100 WBC Chloride (98-107) mmol/L Carbon Dioxide (22-30) mmol/L Creatinine (0.52-1.04) mg/dL Glucose (74-99) mg/dL POC Glucose (mg/dL) 252 H 261 H 264 H (70-110) mg/dL Calcium (8.4-10.2) mg/dL 07/27/22 07/27/22 07/27/22 Range/Units 08:54 08:54 11:38 RBC 3.69 L (3.80-5.40) m/uL Plt Count 144 L (150-450) k/uL Nucleated RBCs 5 H (0-0) /100 WBC Chloride 111 H (98-107) mmol/L Carbon Dioxide 19 L (22-30) mmol/L Creatinine 0.44 L (0.52-1.04) mg/dL Glucose 237 H (74-99) mg/dL POC Glucose (mg/dL) 278 H (70-110) mg/dL Calcium 6.9 L (8.4-10.2) mg/dL 07/27/22 Range/Units 16:27 RBC (3.80-5.40) m/uL Plt Count (150-450) k/uL Nucleated RBCs (0-0) /100 WBC Chloride (98-107) mmol/L Carbon Dioxide (22-30) mmol/L Creatinine (0.52-1.04) mg/dL Glucose (74-99) mg/dL POC Glucose (mg/dL) 352 H (70-110) mg/dL Calcium (8.4-10.2) mg/dL Microbiology - Last 24 Hours (Table) 07/24/22 07:48 Blood Culture - Preliminary Blood No Growth after 72 hours 07/22/22 14:24 Blood Culture - Preliminary Blood No Growth after 96 hours 07/22/22 14:24 Blood Culture - Preliminary Blood No Growth after 96 hours
[2022-07-27] MEDS ORDERED: amLODIPine 10 MG TAB PO STA (19:16)
[2022-07-27 20:05] LABS: Glucose,Whole Blood 366 mg/dL (70-110)
[2022-07-27] MEDS: IBUPROFEN 400 MG TAB PO PRN (20:09)
[2022-07-27] MEDS: ATORVASTATIN 40 MG TAB PO SCH (20:09)
[2022-07-27] MEDS: FLUTICASONE 110 MCG INHALER INHALATION PRN (22:19)
[2022-07-28] MEDS: SODIUM CHLORIDE 0.9% 1,000 ML IV SCH ×3 (01:38→22:15)
[2022-07-28] MEDS: IBUPROFEN 400 MG TAB PO PRN (03:27)
[2022-07-28] MEDS: KETOROLAC 15 MG/ML 1 ML VIAL IVP SCH ×2 (05:51→12:18)
[2022-07-28] MEDS: SALT AND SODA MOUTHWASH 1,000 ML PO SCH ×5 (05:52→23:05)
[2022-07-28] MEDS: CEFEPIME 2 GM in SODIUM CHLORIDE 0.9% 100 ML IVPB SCH ×3 (05:52→22:12)
[2022-07-28 06:24] LABS: Glucose,Whole Blood 331 mg/dL (70-110)
[2022-07-28] MEDS: INSULIN DETEMIR (LEVEMIR) 100 UNIT/ML SYR SQ SCH (06:35)
[2022-07-28] MEDS: INSULIN ASPART (NovoLOG) 100 UNIT/ML VIAL SQ SCH ×6 (07:05→20:14)
[2022-07-28] MEDS: FLUTICASONE 110 MCG INHALER INHALATION PRN (08:25)
[2022-07-28] MEDS: IPRATROPIUM-ALBUTEROL 3 ML NEB INHALATION SCH ×4 (08:25→22:07)
[2022-07-28] MEDS: CYANOCOBALAMIN 500 MCG TAB PO SCH (09:16)
[2022-07-28] MEDS: PANTOPRAZOLE 40 MG TABLET PO SCH (09:16)
[2022-07-28] MEDS: ASPIRIN 81 MG PO SCH (09:16)
[2022-07-28] MEDS: CHOLECALCIFEROL 125 MCG (5000 IU) TABLET PO SCH (09:16)
[2022-07-28] MEDS: LORATADINE 10 MG TAB PO SCH (09:16)
[2022-07-28] MEDS: MULTIVITAMINS, THERA 1 EACH TAB PO SCH (09:16)
[2022-07-28] MEDS: FENOFIBRATE 160 MG TAB PO SCH (09:16)
[2022-07-28] MEDS: DULoxetine HCL 30 MG CAPSULE.DR PO SCH ×2 (09:17→20:14)
[2022-07-28] MEDS: amLODIPine 10 MG TAB PO SCH (09:17)
[2022-07-28] MEDS: predniSONE 20 MG TAB PO SCH (09:17)
[2022-07-28] MEDS: CITALOPRAM HYDROBROMIDE 20 MG TAB PO SCH (09:17)
[2022-07-28] MEDS: metroNIDAZOLE-NS PMX 500 MG in SALINE 1 100ML.BAG IVPB SCH ×3 (09:18→23:05)
[2022-07-28] MEDS: ENOXAPARIN 40 MG/0.4 ML SYRINGE SQ SCH (09:18)
[2022-07-28] MEDS: AMMONIUM LACTATE 12% LOTION 225 GM BTL TOPICAL SCH (09:18)
[2022-07-28 09:24] LABS: HCT 35.1 % (34.0-46.0); HGB 11.8 gm/dL (11.4-16.0); MCH 32.5 pg (25.0-35.0); MCHC 33.5 g/dL (31.0-37.0); MCV 97.1 fL (80.0-100.0); Mean Platelet Volume 11.2; Platelet Count 109 k/uL (150-450); RBC 3.62 m/uL (3.80-5.40); RDW 14.8 % (11.5-15.5)
--- NOTE | 2022-07-28 11:27 | P.PN ---
Subjective Progress Note Date: 07/28/22 Principal diagnosis: Abdominal pain, hernia Patient doing well today. Denies abdominal pain. Tolerating diet. Labs are improved. She is afebrile. She is still very hoarse and complaining of some sinus discomfort. Objective - Vital Signs Vital signs: Vital Signs Temp 97.8 F 07/28/22 08:00 Pulse 86 07/28/22 08:45 Resp 18 07/28/22 08:00 BP 131/83 07/28/22 08:00 Pulse Ox 98 07/28/22 08:26 FiO2 Intake & Output 07/27/22 07/28/22 07/28/22 18:59 06:59 18:59 Intake Total 716 212 120 Output Total 601 1000 Balance 115 -788 120 Weight 116 kg Intake: Oral 716 212 120 Output: Urine 601 1000 Other: Voiding Method Toilet Toilet Toilet # Bowel Movements 1 - Exam Abdomen: Soft, nondistended, nontender, hernia reducible - Labs CBC & Chem 7: 07/28/22 08:58 07/27/22 08:54 Labs: Abnormal Lab Results - Last 24 Hours (Table) 07/27/22 07/27/22 07/27/22 Range/Units 08:54 11:38 16:27 RBC (3.80-5.40) m/uL Plt Count (150-450) k/uL Nucleated RBCs 5 H (0-0) /100 WBC POC Glucose (mg/dL) 278 H 352 H (70-110) mg/dL 07/27/22 07/28/22 07/28/22 Range/Units 20:03 06:22 08:58 RBC 3.62 L (3.80-5.40) m/uL Plt Count 109 L (150-450) k/uL Nucleated RBCs (0-0) /100 WBC POC Glucose (mg/dL) 366 H 331 H (70-110) mg/dL Microbiology - Last 24 Hours (Table) 07/24/22 07:48 Blood Culture - Preliminary Blood No Growth after 96 hours 07/22/22 14:24 Blood Culture - Preliminary Blood No Growth after 120 hours 07/22/22 14:24 Blood Culture - Preliminary Blood No Growth after 120 hours Assessment and Plan (1) Ileus Narrative/Plan: 56-year-old female doing well with resolution of neutropenia. She is tolerating her diet at this time. Continue to advance per oncology. We'll sign off. Please call if needed. Current Visit: Yes Status: Acute Code(s): K56.7 - ILEUS, UNSPECIFIED SNOMED Code(s): 283048061
[2022-07-28 11:31] LABS: Band Neutrophils % 8 %; Lymphocytes # (M) 1.49 k/uL (1.0-4.8); Monocytes # (M) 0.75 k/uL (0-1.0); Neutrophils % (M) 65 %; Nucleated Red Blood Cells 3 /100 WBC (0-0); Total Cells Counted 100; WBC 8.3 k/uL (3.8-10.6)
[2022-07-28 12:06] LABS: Glucose,Whole Blood 344 mg/dL (70-110)
[2022-07-28] MEDS: MAG HYDROX/AL HYDROX/SIMETH 30 ML CUP PO PRN (13:08)
--- NOTE | 2022-07-28 14:39 | P.PN ---
Subjective Progress Note Date: 07/28/22 Principal diagnosis: Febrile neutropenia Patient is a 56-year female with a past medical history taken for diabetes mellitus hypertension COPD patient did have a history of right breast cancer on chemotherapy last chemo was about a week ago on the Monday 2 days later on patient started not feeling well symptom has been mostly nausea and vomiting and did have some diarrhea, patient was noticed to be febrile and did have a low white count patient did have a CT abdominal pelvis suggestive of ileus and abdominal hernia but no strangulation on today's evaluation that is 07/28/2022, the patient remains to be afebrile, the patient is breathing comfortably on room air , the patient is feeling better today has been tolerating her diet some nausea but no vomiting still some abdominal discomfort after eating Tomato soup denies any worsening diarrhea Objective - Vital Signs Vital signs: Vital Signs Temp 97.8 F 07/28/22 08:00 Pulse 92 07/28/22 12:30 Resp 18 07/28/22 12:25 BP 142/83 07/28/22 12:25 Pulse Ox 98 07/28/22 12:25 FiO2 Intake & Output 07/27/22 07/28/22 07/28/22 18:59 06:59 18:59 Intake Total 716 212 120 Output Total 601 1000 Balance 115 -788 120 Weight 116 kg 121.7 kg Intake: Oral 716 212 120 Output: Urine 601 1000 Other: Voiding Method Toilet Toilet Toilet # Bowel Movements 1 - Exam GENERAL DESCRIPTION: Middle-age female up in the chair in no distress RESPIRATORY SYSTEM: Unlabored breathing , decreased breath sounds at bases HEART: S1 S2 regular rate and rhythm , ABDOMEN: Soft , mild distention but no tenderness EXTREMITIES: No edema feet - Labs CBC & Chem 7: 07/28/22 08:58 07/27/22 08:54 Labs: Abnormal Lab Results - Last 24 Hours (Table) 07/27/22 07/27/22 07/28/22 Range/Units 16:27 20:03 06:22 RBC (3.80-5.40) m/uL Plt Count (150-450) k/uL Nucleated RBCs (0-0) /100 WBC POC Glucose (mg/dL) 352 H 366 H 331 H (70-110) mg/dL 07/28/22 07/28/22 Range/Units 08:58 12:03 RBC 3.62 L (3.80-5.40) m/uL Plt Count 109 L (150-450) k/uL Nucleated RBCs 3 H (0-0) /100 WBC POC Glucose (mg/dL) 344 H (70-110) mg/dL Microbiology - Last 24 Hours (Table) 07/24/22 07:48 Blood Culture - Preliminary Blood No Growth after 96 hours 07/22/22 14:24 Blood Culture - Preliminary Blood No Growth after 120 hours 07/22/22 14:24 Blood Culture - Preliminary Blood No Growth after 120 hours Assessment and Plan (1) Febrile neutropenia Current Visit: Yes Status: Resolved Priority: High Code(s): D70.9 - NEUTROPENIA, UNSPECIFIED; R50.81 - FEVER PRESENTING WITH CONDITIONS CLASSIFIED ELSEWHERE SNOMED Code(s): 585035789 Plan: 1patient was in the hospital with febrile neutropenia predominantly has GI symptoms of nausea and vomiting also complaining of shortness of breath with initial chest x-raymedical abnormality patient did have a CT of abdominal pelvis completed this afternoon with evidence of small bowel obstruction ventral hernia but no evidence of any strangulation more likely dealing with abdominal source and need to cover for the enteric gram-negative both aerobes and an aerobes 2-patient has been evaluated general surgery currently being treated medically 3-patient did have slow clinical improvement the patient fever has resolved and the patient white count has normalized, patient currently being treated with cefepime and Flagyl and may consider short course of oral Augmentin on discharge Time with Patient: Less than 30
[2022-07-28 16:52] LABS: Glucose,Whole Blood 299 mg/dL (70-110)
--- NOTE | 2022-07-28 16:54 | P.PN ---
Subjective Progress Note Date: 07/28/22 86-year-old female patient with a past medical history significant for COPD/asthma not on home oxygen, nonsmoker, hypertension, diabetes mellitus type 2, breast cancer in the right breast receiving chemotherapy currently presented with shortness of breath, wheezing, productive cough. In the ER, Labs showed White cell count was 0.6, PT 12.5, INR 1.2, sodium 132, bicarb 19, glucose 425, lactic acid 3.8, calcium 7.0, phosphorus 1.8, magnesium 1.5. Chest x-ray poor inspiratory film no definite infiltrates noted. Patient received neb treatments, IV vancomycin and IV cefepime in the ER. Patient admitted for sepsis, febrile neutropenia, COPD exacerbation. Oncology and ID consulted. Patient also having significant abdominal pain, nausea, vomiting. CT abdomen and pelvis showed possible small bowel focal ileus or closed-loop obstruction, ventral hernia. Surgery was consulted suspect likely ileus. Patient continues to be nauseous. Patient seen and examined at bedside. She has been afebrile since 07/23. Her nausea, vomiting and abdominal pain has significantly improved. She reports semi solid bowel movements today. She continues to complain of LUE pain that started yesterday. Pain is muscular in nature. She is also reporting a loss of her voice. General: tired appearing, no distress, appears at stated age Derm: warm, dry Head: atraumatic, normocephalic, symmetric Eyes: EOMI, no lid lag, anicteric sclera Mouth: no lip lesion, mucus membranes moist Cardiovascular: S1S2 reg, no murmur Lungs: CTA bilateral, no rhonchi, no rales , no accessory muscle use, supplemental oxygen Abdominal: soft, mild periumbilical tenderness to palpation, no guarding, no appreciable organomegaly Ext: no gross muscle atrophy, no edema, no contractures Neuro: no focal neuro deficits Psych: Alert, oriented, appropriate affect Neutropenic sepsis LUE pain Ileus Breast cancer status post cycle 1 chemotherapy Poorly controlled Type 2 diabetes with hyperglycemia, A1c 10.8 Resovled: COPD exacerbation, Hypokalemia Based on my assessment of this patient, this patient meets a moderate complexity level of care. I have reviewed the following group segment consultant notes: Surgery note 07/28, full liquids per Oncology, antibiotics per ID service Infectious disease note 07/28, Augmentin on discharge I have reviewed the results of the following tests: CBC shows WBC count of 8.3 and platelet count of 109. This is considerably improved since admission. POC glucose ranging in the 300s. I have ordered the following tests: None. I have discussed the care of this patient with the following independent historian: None. I have independently interpreted the following test below: None. I have discussed the management of this patient with the following physician: None. This patient has a moderate risk of morbidity due to the following reasons: Patient has an acute diagnosis of neutropenic sepsis that poses a threat to life or bodily function. She also has ileus that is resolving. She received Filgastrim on 07/25. Her leukopenia has resolved. T-max of 98.2 Fahrenheit over the past 24 hours. CRP elevated at 36.5. Pro-calcitonin elevated at 6.04. C. diff negative. Legionella antigen negative. Blood cultures negative at 144 and 96 hours. She is currently on cefepime 2 g IV every 8 hours along with Flagyl 500 mg IV every 8 hours. Full liquid diet and advance. Infectious workup so far negative. Switch Solumedrol to Prednisone which should help with hyperglycemia. Continue low dose sliding scale to medium dose. Add Novolog 10 units TID. Infectious disease, general surgery and oncology on board. She is medically stable. She is insurance authorization for SNF. Objective - Vital Signs Vital signs: Vital Signs Temp 97.5 F L 07/28/22 16:34 Pulse 104 H 07/28/22 16:34 Resp 18 07/28/22 16:34 BP 155/84 07/28/22 16:34 Pulse Ox 99 07/28/22 16:34 FiO2 Intake & Output 07/27/22 07/28/22 07/28/22 18:59 06:59 18:59 Intake Total 716 212 480 Output Total 601 1000 Balance 115 -788 480 Weight 116 kg 121.7 kg Intake: Oral 716 212 480 Output: Urine 601 1000 Other: Voiding Method Toilet Toilet Toilet # Voids 4 # Bowel Movements 1 4 - Labs CBC & Chem 7: 07/28/22 08:58 07/27/22 08:54 Labs: Abnormal Lab Results - Last 24 Hours (Table) 07/27/22 07/28/22 07/28/22 Range/Units 20:03 06:22 08:58 RBC 3.62 L (3.80-5.40) m/uL Plt Count 109 L (150-450) k/uL Nucleated RBCs 3 H (0-0) /100 WBC POC Glucose (mg/dL) 366 H 331 H (70-110) mg/dL 07/28/22 Range/Units 12:03 RBC (3.80-5.40) m/uL Plt Count (150-450) k/uL Nucleated RBCs (0-0) /100 WBC POC Glucose (mg/dL) 344 H (70-110) mg/dL Microbiology - Last 24 Hours (Table) 07/22/22 14:24 Blood Culture - Final Blood No Growth after 144 hours 07/22/22 14:24 Blood Culture - Final Blood No Growth after 144 hours 07/24/22 07:48 Blood Culture - Preliminary Blood No Growth after 96 hours
[2022-07-28] MEDS: KETOROLAC 15 MG/ML 1 ML VIAL IVP PRN (19:43)
[2022-07-28 20:03] LABS: Glucose,Whole Blood 327 mg/dL (70-110)
[2022-07-28] MEDS: ATORVASTATIN 40 MG TAB PO SCH (20:14)
[2022-07-29] MEDS: ACETAMINOPHEN TAB 325 MG TAB PO PRN ×3 (03:05→22:15)
[2022-07-29] MEDS: CEFEPIME 2 GM in SODIUM CHLORIDE 0.9% 100 ML IVPB SCH ×2 (06:27→14:29)
[2022-07-29] MEDS: INSULIN DETEMIR (LEVEMIR) 100 UNIT/ML SYR SQ SCH (06:27)
[2022-07-29] MEDS: KETOROLAC 15 MG/ML 1 ML VIAL IVP PRN (06:27)
[2022-07-29] MEDS: SALT AND SODA MOUTHWASH 1,000 ML PO SCH ×5 (06:30→23:01)
[2022-07-29 07:15] LABS: Glucose,Whole Blood 260 mg/dL (70-110)
[2022-07-29] MEDS: FLUTICASONE 110 MCG INHALER INHALATION PRN ×2 (07:43→21:34)
[2022-07-29] MEDS: IPRATROPIUM-ALBUTEROL 3 ML NEB INHALATION SCH ×4 (07:43→21:34)
[2022-07-29] MEDS: SODIUM CHLORIDE 0.9% 1,000 ML IV SCH (09:01)
[2022-07-29] MEDS: FENOFIBRATE 160 MG TAB PO SCH (09:02)
[2022-07-29] MEDS: metroNIDAZOLE-NS PMX 500 MG in SALINE 1 100ML.BAG IVPB SCH (09:02)
[2022-07-29] MEDS: INSULIN ASPART (NovoLOG) 100 UNIT/ML VIAL SQ SCH ×7 (09:02→20:08)
[2022-07-29] MEDS: AMMONIUM LACTATE 12% LOTION 225 GM BTL TOPICAL SCH (09:03)
[2022-07-29] MEDS: CHOLECALCIFEROL 125 MCG (5000 IU) TABLET PO SCH (09:03)
[2022-07-29] MEDS: predniSONE 20 MG TAB PO SCH (09:03)
[2022-07-29] MEDS: PANTOPRAZOLE 40 MG TABLET PO SCH (09:03)
[2022-07-29] MEDS: CYANOCOBALAMIN 500 MCG TAB PO SCH (09:03)
[2022-07-29] MEDS: DULoxetine HCL 30 MG CAPSULE.DR PO SCH ×2 (09:03→20:08)
[2022-07-29] MEDS: amLODIPine 10 MG TAB PO SCH (09:03)
[2022-07-29] MEDS: LORATADINE 10 MG TAB PO SCH (09:03)
[2022-07-29] MEDS: MULTIVITAMINS, THERA 1 EACH TAB PO SCH (09:03)
[2022-07-29] MEDS: CITALOPRAM HYDROBROMIDE 20 MG TAB PO SCH (09:03)
[2022-07-29] MEDS: ASPIRIN 81 MG PO SCH (09:05)
[2022-07-29] MEDS: ENOXAPARIN 40 MG/0.4 ML SYRINGE SQ SCH (09:05)
[2022-07-29 11:55] LABS: HCT 32.6 % (34.0-46.0); HGB 10.9 gm/dL (11.4-16.0); MCH 32.2 pg (25.0-35.0); MCHC 33.3 g/dL (31.0-37.0); MCV 96.6 fL (80.0-100.0); Mean Platelet Volume 11.6; Platelet Count 76 k/uL (150-450); RBC 3.38 m/uL (3.80-5.40); RDW 15.1 % (11.5-15.5)
[2022-07-29 12:02] LABS: Glucose,Whole Blood 269 mg/dL (70-110)
[2022-07-29] MEDS: MAG HYDROX/AL HYDROX/SIMETH 30 ML CUP PO PRN (12:09)
--- NOTE | 2022-07-29 13:16 | P.PN ---
Subjective Progress Note Date: 07/29/22 Principal diagnosis: Febrile neutropenia Patient is a 56-year female with a past medical history taken for diabetes mellitus hypertension COPD patient did have a history of right breast cancer on chemotherapy last chemo was about a week ago on the Monday 2 days later on patient started not feeling well symptom has been mostly nausea and vomiting and did have some diarrhea, patient was noticed to be febrile and did have a low white count patient did have a CT abdominal pelvis suggestive of ileus and abdominal hernia but no strangulation on today's evaluation that is 07/29/2022, the patient continues to be afebrile, the patient is breathing comfortably on room air , the patient has been tolerating her diet denies any further nausea vomiting abdominal discomfort has improved no chest pain shortness of breath or cough Objective - Vital Signs Vital signs: Vital Signs Temp 97.6 F 07/29/22 11:44 Pulse 90 07/29/22 11:44 Resp 18 07/29/22 11:44 BP 131/85 07/29/22 11:44 Pulse Ox 95 07/29/22 11:44 FiO2 Intake & Output 07/28/22 07/29/22 07/29/22 18:59 06:59 18:59 Intake Total 960 10 Output Total 700 Balance 960 -700 10 Weight 121.7 kg Intake: IV 10 Invasive Line 1 10 Oral 960 Output: Urine 700 Other: Voiding Method Toilet Toilet Toilet # Voids 4 # Bowel Movements 4 - Exam GENERAL DESCRIPTION: Middle-age female up in the chair in no distress RESPIRATORY SYSTEM: Unlabored breathing , decreased breath sounds at bases HEART: S1 S2 regular rate and rhythm , ABDOMEN: Soft , mild distention but no tenderness EXTREMITIES: No edema feet - Labs CBC & Chem 7: 07/29/22 10:26 07/27/22 08:54 Labs: Abnormal Lab Results - Last 24 Hours (Table) 07/28/22 07/28/22 07/29/22 Range/Units 16:50 20:02 07:14 RBC (3.80-5.40) m/uL Hgb (11.4-16.0) gm/dL Hct (34.0-46.0) % POC Glucose (mg/dL) 299 H 327 H 260 H (70-110) mg/dL 07/29/22 07/29/22 Range/Units 10:26 12:01 RBC 3.38 L (3.80-5.40) m/uL Hgb 10.9 L (11.4-16.0) gm/dL Hct 32.6 L (34.0-46.0) % POC Glucose (mg/dL) 269 H (70-110) mg/dL Microbiology - Last 24 Hours (Table) 07/24/22 07:48 Blood Culture - Preliminary Blood No Growth after 120 hours 07/22/22 14:24 Blood Culture - Final Blood No Growth after 144 hours 07/22/22 14:24 Blood Culture - Final Blood No Growth after 144 hours Assessment and Plan (1) Febrile neutropenia Current Visit: Yes Status: Resolved Priority: High Code(s): D70.9 - NEUTROPENIA, UNSPECIFIED; R50.81 - FEVER PRESENTING WITH CONDITIONS CLASSIFIED ELSEWHERE SNOMED Code(s): 057597799 Plan: 1patient was in the hospital with febrile neutropenia predominantly has GI symptoms of nausea and vomiting also complaining of shortness of breath with initial chest x-raymedical abnormality patient did have a CT of abdominal pelvis completed this afternoon with evidence of small bowel obstruction ventral hernia but no evidence of any strangulation more likely dealing with abdominal source and need to cover for the enteric gram-negative both aerobes and anaerobes 2-patient has been evaluated general surgery currently being treated medically 3-patient has shown clinical improvement the patient fever has resolved and the patient white count has normalized, patient to continue with cefepime and Flagyl with a plan to finish therapy with short course of oral Augmentin on discharge Time with Patient: Less than 30
[2022-07-29 13:25] VITALS: BMI 44.6
[2022-07-29 13:38] LABS: Band Neutrophils % 3 %; Metamyelocytes # (M) 0.18 k/uL (0); Metamyelocytes % 2 %; Myelocytes % 4 %; Neutrophils % (M) 76 %; Nucleated Red Blood Cells 2 /100 WBC (0-0); Total Cells Counted 200
[2022-07-29 13:39] LABS: Lymphocytes # (M) 0.88 k/uL (1.0-4.8); Monocytes # (M) 0.53 k/uL (0-1.0); Myelocytes # (M) 0.35 k/uL (0); Polychromasia Present; WBC 8.8 k/uL (3.8-10.6)
--- NOTE | 2022-07-29 13:42 | P.PN ---
Subjective Progress Note Date: 07/29/22 Principal diagnosis: hx breast cancer, neutropenic fever At today's visit patient is resting comfortable in bed. Patient states she feels improved is feeling continued improvement in symptoms. She states that she is tolerating oral intake while he was having mild nausea, but didn't denies vomiting. She also reports diarrhea has improved and that her last couple stools have been loose, Has been having increased consistency stools. She denies abdominal pain fever and chills. No other reported complaints at this time Objective - Vital Signs Vital signs: Vital Signs Temp 97.6 F 07/29/22 11:44 Pulse 90 07/29/22 11:44 Resp 18 07/29/22 11:44 BP 131/85 07/29/22 11:44 Pulse Ox 95 07/29/22 11:44 FiO2 Intake & Output 07/28/22 07/29/22 07/29/22 18:59 06:59 18:59 Intake Total 960 10 Output Total 700 Balance 960 -700 10 Weight 121.7 kg 121.7 kg Intake: IV 10 Invasive Line 1 10 Oral 960 Output: Urine 700 Other: Voiding Method Toilet Toilet Toilet # Voids 4 # Bowel Movements 4 - Constitutional General appearance: Present: no acute distress, obese - EENT Eyes: Present: anicteric sclerae, EOMI ENT: Present: hearing grossly normal - Respiratory Details: breathing is even and unlabored - Cardiovascular Details: skin is warm and dry - Gastrointestinal General gastrointestinal: Present: soft. Absent: tenderness - Integumentary Integumentary: Present: normal - Neurologic Neurologic Comment(s): Grossly intact - Musculoskeletal Musculoskeletal: Present: strength equal bilaterally - Psychiatric Psychiatric: Present: A&O x's 3, appropriate affect, intact judgment & insight - Labs CBC & Chem 7: 07/29/22 10:26 07/27/22 08:54 Labs: Abnormal Lab Results - Last 24 Hours (Table) 07/28/22 07/28/22 07/29/22 Range/Units 16:50 20:02 07:14 RBC (3.80-5.40) m/uL Hgb (11.4-16.0) gm/dL Hct (34.0-46.0) % POC Glucose (mg/dL) 299 H 327 H 260 H (70-110) mg/dL 07/29/22 07/29/22 Range/Units 10:26 12:01 RBC 3.38 L (3.80-5.40) m/uL Hgb 10.9 L (11.4-16.0) gm/dL Hct 32.6 L (34.0-46.0) % POC Glucose (mg/dL) 269 H (70-110) mg/dL Microbiology - Last 24 Hours (Table) 07/24/22 07:48 Blood Culture - Preliminary Blood No Growth after 120 hours 07/22/22 14:24 Blood Culture - Final Blood No Growth after 144 hours 07/22/22 14:24 Blood Culture - Final Blood No Growth after 144 hours Assessment and Plan (1) Pancytopenia due to chemotherapy Current Visit: Yes Status: Acute Priority: Medium Code(s): D61.810 - ANTINEOPLASTIC CHEMOTHERAPY INDUCED PANCYTOPENIA SNOMED Code(s): 6376139 (2) Febrile neutropenia Current Visit: Yes Status: Resolved Priority: High Code(s): D70.9 - NEUTROPENIA, UNSPECIFIED; R50.81 - FEVER PRESENTING WITH CONDITIONS CLASSIFIED ELSEWHERE SNOMED Code(s): 494314686 (3) Neutropenic typhlitis Current Visit: Yes Status: Resolved Priority: High Code(s): K37 - UNSPECIFIED APPENDICITIS; D70.9 - NEUTROPENIA, UNSPECIFIED SNOMED Code(s): 8525460 Plan: Plan: Febrile neutropenia -2/2 chemo -GCSF given, neutropenia resolved, no fevers. 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 F/u with her primary Oncologist once she is discharged prior to resuming any treatment Case was discussed with Adolescent Coordinator. PT recommending rehab. Provided CM with Primary Onc name to contact him directly re: rehab stay.
--- NOTE | 2022-07-29 14:23 | P.PN ---
Subjective Progress Note Date: 07/29/22 86-year-old female patient with a past medical history significant for COPD/asthma not on home oxygen, nonsmoker, hypertension, diabetes mellitus type 2, breast cancer in the right breast receiving chemotherapy currently presented with shortness of breath, wheezing, productive cough. In the ER, Labs showed White cell count was 0.6, PT 12.5, INR 1.2, sodium 132, bicarb 19, glucose 425, lactic acid 3.8, calcium 7.0, phosphorus 1.8, magnesium 1.5. Chest x-ray poor inspiratory film no definite infiltrates noted. Patient received neb treatments, IV vancomycin and IV cefepime in the ER. Patient admitted for sepsis, febrile neutropenia, COPD exacerbation. Oncology and ID consulted. Patient also having significant abdominal pain, nausea, vomiting. CT abdomen and pelvis showed possible small bowel focal ileus or closed-loop obstruction, ventral hernia. Surgery was consulted suspect likely ileus. Patient continues to be nauseous. Patient seen and examined at bedside. She has been afebrile since 07/23. Her nausea, vomiting and abdominal pain has significantly improved. She has no complaints today. General: tired appearing, no distress, appears at stated age Derm: warm, dry Head: atraumatic, normocephalic, symmetric Eyes: EOMI, no lid lag, anicteric sclera Mouth: no lip lesion, mucus membranes moist Cardiovascular: S1S2 reg, no murmur Lungs: CTA bilateral, no rhonchi, no rales , no accessory muscle use, supplemental oxygen Abdominal: soft, mild periumbilical tenderness to palpation, no guarding, no appreciable organomegaly Ext: no gross muscle atrophy, no edema, no contractures Neuro: no focal neuro deficits Psych: Alert, oriented, appropriate affect Neutropenic sepsis LUE pain Ileus Breast cancer status post cycle 1 chemotherapy Poorly controlled Type 2 diabetes with hyperglycemia, A1c 10.8 Resovled: COPD exacerbation, Hypokalemia Based on my assessment of this patient, this patient meets a moderate complexity level of care. I have reviewed the following clinical documentation consultant notes: Surgery note 07/29, full liquids per Oncology, antibiotics per ID service Infectious disease note 07/29, Augmentin on discharge I have reviewed the results of the following tests: CBC shows WBC count of 8.8, hemoglobin of 10.9, and platelet count of 76. This is considerably improved since admission. POC glucose ranging in the 200s. I have ordered the following tests: None. I have discussed the care of this patient with the following independent historian: None. I have independently interpreted the following test below: None. I have discussed the management of this patient with the following physician: None. This patient has a moderate risk of morbidity due to the following reasons: Patient has an acute diagnosis of neutropenic sepsis that poses a threat to life or bodily function. She also has ileus that is resolving. She received Filgastrim on 07/25. Her leukopenia has resolved. T-max of 98.2 Fahrenheit over the past 24 hours. CRP elevated at 36.5. Pro-calcitonin elevated at 6.04. C. diff negative. Legionella antigen negative. Blood cultures negative at 144 and 120 hours. Transitioned to Augmentin 875-125 by mouth twice a day. Start regular diet. Infectious workup so far negative. Switch Solumedrol to Prednisone which should help with hyperglycemia. Continue low dose sliding scale to medium dose. Continue Novolog 10 units TID. Infectious disease, general surgery and oncology on board. She is medically stable. She is insurance authorization for SNF. Objective - Vital Signs Vital signs: Vital Signs Temp 97.6 F 07/29/22 11:44 Pulse 90 07/29/22 11:44 Resp 18 07/29/22 11:44 BP 131/85 07/29/22 11:44 Pulse Ox 95 07/29/22 11:44 FiO2 Intake & Output 07/28/22 07/29/22 07/29/22 18:59 06:59 18:59 Intake Total 960 10 Output Total 700 Balance 960 -700 10 Weight 121.7 kg 121.7 kg Intake: IV 10 Invasive Line 1 10 Oral 960 Output: Urine 700 Other: Voiding Method Toilet Toilet Toilet # Voids 4 2 # Bowel Movements 4 1 - Labs CBC & Chem 7: 07/29/22 10:26 07/27/22 08:54 Labs: Abnormal Lab Results - Last 24 Hours (Table) 07/28/22 07/28/22 07/29/22 Range/Units 16:50 20:02 07:14 RBC (3.80-5.40) m/uL Hgb (11.4-16.0) gm/dL Hct (34.0-46.0) % Plt Count (150-450) k/uL Lymphocytes # (Manual) (1.0-4.8) k/uL Metamyelocytes # (Man) (0) k/uL Myelocytes # (Manual) (0) k/uL Nucleated RBCs (0-0) /100 WBC POC Glucose (mg/dL) 299 H 327 H 260 H (70-110) mg/dL 07/29/22 07/29/22 Range/Units 10:26 12:01 RBC 3.38 L (3.80-5.40) m/uL Hgb 10.9 L (11.4-16.0) gm/dL Hct 32.6 L (34.0-46.0) % Plt Count 76 L (150-450) k/uL Lymphocytes # (Manual) 0.88 L (1.0-4.8) k/uL Metamyelocytes # (Man) 0.18 H (0) k/uL Myelocytes # (Manual) 0.35 H (0) k/uL Nucleated RBCs 2 H (0-0) /100 WBC POC Glucose (mg/dL) 269 H (70-110) mg/dL Microbiology - Last 24 Hours (Table) 07/24/22 07:48 Blood Culture - Preliminary Blood No Growth after 120 hours 07/22/22 14:24 Blood Culture - Final Blood No Growth after 144 hours 07/22/22 14:24 Blood Culture - Final Blood No Growth after 144 hours
[2022-07-29 16:51] LABS: Glucose,Whole Blood 309 mg/dL (70-110)
[2022-07-29 20:05] LABS: Glucose,Whole Blood 322 mg/dL (70-110)
[2022-07-29] MEDS: AMOXIC-POT CLAV 875-125MG 1 EACH TAB PO SCH (20:07)
[2022-07-29] MEDS: ATORVASTATIN 40 MG TAB PO SCH (20:08)
[2022-07-29] MEDS: IBUPROFEN 400 MG TAB PO PRN (22:15)
[2022-07-30] MEDS: IBUPROFEN 400 MG TAB PO PRN ×2 (04:54→20:16)
[2022-07-30] MEDS: ACETAMINOPHEN TAB 325 MG TAB PO PRN ×2 (04:54→20:16)
[2022-07-30] MEDS: SALT AND SODA MOUTHWASH 1,000 ML PO SCH ×5 (06:15→23:20)
[2022-07-30] MEDS: INSULIN DETEMIR (LEVEMIR) 100 UNIT/ML SYR SQ SCH (06:15)
[2022-07-30 07:44] LABS: Glucose,Whole Blood 232 mg/dL (70-110)
[2022-07-30] MEDS: INSULIN ASPART (NovoLOG) 100 UNIT/ML VIAL SQ SCH ×7 (08:18→20:17)
[2022-07-30] MEDS: predniSONE 20 MG TAB PO SCH (08:19)
[2022-07-30] MEDS: AMOXIC-POT CLAV 875-125MG 1 EACH TAB PO SCH ×2 (08:19→20:16)
[2022-07-30] MEDS: CITALOPRAM HYDROBROMIDE 20 MG TAB PO SCH (08:19)
[2022-07-30] MEDS: amLODIPine 10 MG TAB PO SCH (08:19)
[2022-07-30] MEDS: ASPIRIN 81 MG PO SCH (08:19)
[2022-07-30] MEDS: DULoxetine HCL 30 MG CAPSULE.DR PO SCH ×2 (08:19→20:16)
[2022-07-30] MEDS: MULTIVITAMINS, THERA 1 EACH TAB PO SCH (08:19)
[2022-07-30] MEDS: FENOFIBRATE 160 MG TAB PO SCH (08:20)
[2022-07-30] MEDS: CYANOCOBALAMIN 500 MCG TAB PO SCH (08:20)
[2022-07-30] MEDS: AMMONIUM LACTATE 12% LOTION 225 GM BTL TOPICAL SCH (08:20)
[2022-07-30] MEDS: CHOLECALCIFEROL 125 MCG (5000 IU) TABLET PO SCH (08:20)
[2022-07-30] MEDS: LORATADINE 10 MG TAB PO SCH (08:20)
[2022-07-30] MEDS: ENOXAPARIN 40 MG/0.4 ML SYRINGE SQ SCH (08:20)
[2022-07-30] MEDS: PANTOPRAZOLE 40 MG TABLET PO SCH (08:20)
[2022-07-30] MEDS: IPRATROPIUM-ALBUTEROL 3 ML NEB INHALATION SCH ×4 (09:00→21:49)
--- NOTE | 2022-07-30 11:24 | P.PN ---
Subjective Progress Note Date: 07/30/22 86-year-old female patient with a past medical history significant for COPD/asthma not on home oxygen, nonsmoker, hypertension, diabetes mellitus type 2, breast cancer in the right breast receiving chemotherapy currently presented with shortness of breath, wheezing, productive cough. In the ER, Labs showed White cell count was 0.6, PT 12.5, INR 1.2, sodium 132, bicarb 19, glucose 425, lactic acid 3.8, calcium 7.0, phosphorus 1.8, magnesium 1.5. Chest x-ray poor inspiratory film no definite infiltrates noted. Patient received neb treatments, IV vancomycin and IV cefepime in the ER. Patient admitted for sepsis, febrile neutropenia, COPD exacerbation. Oncology and ID consulted. Patient also having significant abdominal pain, nausea, vomiting. CT abdomen and pelvis showed possible small bowel focal ileus or closed-loop obstruction, ventral hernia. Surgery was consulted suspect likely ileus. Her ileus resolved with conservative management. Her neutropenia resolved after receiving Filgastrim. Cefepime and Flagyl was discontinued and she was started on Augmentin by mouth. Patient seen and examined at bedside. She has been afebrile since 07/23. Her nausea, vomiting and abdominal pain has significantly improved. She has no complaints today. General: tired appearing, no distress, appears at stated age Derm: warm, dry Head: atraumatic, normocephalic, symmetric Eyes: EOMI, no lid lag, anicteric sclera Mouth: no lip lesion, mucus membranes moist Cardiovascular: S1S2 reg, no murmur Lungs: CTA bilateral, no rhonchi, no rales , no accessory muscle use, supplemental oxygen Abdominal: soft, no tenderness to palpation, no guarding, no appreciable organomegaly Ext: no gross muscle atrophy, no edema, no contractures Neuro: no focal neuro deficits Psych: Alert, oriented, appropriate affect Neutropenic sepsis Ileus Breast cancer status post cycle 1 chemotherapy Poorly controlled Type 2 diabetes with hyperglycemia, A1c 10.8 Resovled: COPD exacerbation, Hypokalemia Based on my assessment of this patient, this patient meets a moderate complexity level of care. I have reviewed the following senior sustainability consultant notes: None. I have reviewed the results of the following tests: POC glucose ranging from 232-322 over the past 24H. I have ordered the following tests: None. I have discussed the care of this patient with the following independent historian: None. I have independently interpreted the following test below: None. I have discussed the management of this patient with the following physician: None. This patient has a moderate risk of morbidity due to the following reasons: Patient had an acute diagnosis of neutropenic sepsis on admission that posed a threat to life or bodily function. She also has ileus that has resolved with conservative management. She received Filgastrim on 07/25. Her leukopenia has resolved. Infectious workup has been negative so far. Transitioned to Augmentin 875-125 by mouth twice a day. Continue regular diet. Switch Solumedrol to Prednisone which should help with hyperglycemia. Continue low dose sliding scale to medium dose. Increase Novolog from 10 to 15 units TID. Infectious disease, general surgery and oncology on board. She is medically stable. She is insurance authorization for SNF. Objective - Vital Signs Vital signs: Vital Signs Temp 98.2 F 07/30/22 08:15 Pulse 90 07/30/22 09:14 Resp 18 07/30/22 08:15 BP 112/80 07/30/22 08:15 Pulse Ox 99 07/30/22 09:01 FiO2 Intake & Output 07/29/22 07/30/22 07/30/22 18:59 06:59 18:59 Intake Total 15 Balance 15 Weight 121.7 kg Intake: IV 15 Invasive Line 1 15 Other: Voiding Method Toilet Toilet # Voids 2 1 1 # Bowel Movements 1 1 1 - Labs CBC & Chem 7: 07/29/22 10:26 07/27/22 08:54 Labs: Abnormal Lab Results - Last 24 Hours (Table) 07/29/22 07/29/22 07/29/22 Range/Units 10:26 12:01 16:50 RBC 3.38 L (3.80-5.40) m/uL Hgb 10.9 L (11.4-16.0) gm/dL Hct 32.6 L (34.0-46.0) % Plt Count 76 L (150-450) k/uL Lymphocytes # (Manual) 0.88 L (1.0-4.8) k/uL Metamyelocytes # (Man) 0.18 H (0) k/uL Myelocytes # (Manual) 0.35 H (0) k/uL Nucleated RBCs 2 H (0-0) /100 WBC POC Glucose (mg/dL) 269 H 309 H (70-110) mg/dL 07/29/22 07/30/22 Range/Units 20:03 07:42 RBC (3.80-5.40) m/uL Hgb (11.4-16.0) gm/dL Hct (34.0-46.0) % Plt Count (150-450) k/uL Lymphocytes # (Manual) (1.0-4.8) k/uL Metamyelocytes # (Man) (0) k/uL Myelocytes # (Manual) (0) k/uL Nucleated RBCs (0-0) /100 WBC POC Glucose (mg/dL) 322 H 232 H (70-110) mg/dL Microbiology - Last 24 Hours (Table) 07/24/22 07:48 Blood Culture - Final Blood No Growth after 144 hours
[2022-07-30 11:42] LABS: Glucose,Whole Blood 292 mg/dL (70-110)
[2022-07-30 16:19] LABS: Glucose,Whole Blood 306 mg/dL (70-110)
[2022-07-30] MEDS: MAG HYDROX/AL HYDROX/SIMETH 30 ML CUP PO PRN (19:16)
[2022-07-30 20:00] LABS: Glucose,Whole Blood 323 mg/dL (70-110)
[2022-07-30] MEDS: ATORVASTATIN 40 MG TAB PO SCH (20:16)
[2022-07-31] MEDS ORDERED: SODIUM CHLORIDE 0.65% NASAL SPRAY 44 ML BTL NASAL PRN (03:00)
[2022-07-31 05:53] LABS: Glucose,Whole Blood 255 mg/dL (70-110)
[2022-07-31] MEDS: INSULIN DETEMIR (LEVEMIR) 100 UNIT/ML SYR SQ SCH (06:24)
[2022-07-31] MEDS: SALT AND SODA MOUTHWASH 1,000 ML PO SCH ×5 (06:24→23:24)
[2022-07-31] MEDS: INSULIN ASPART (NovoLOG) 100 UNIT/ML VIAL SQ SCH ×7 (07:59→21:04)
[2022-07-31] MEDS: CITALOPRAM HYDROBROMIDE 20 MG TAB PO SCH (08:00)
[2022-07-31] MEDS: amLODIPine 10 MG TAB PO SCH (08:00)
[2022-07-31] MEDS: CYANOCOBALAMIN 500 MCG TAB PO SCH (08:00)
[2022-07-31] MEDS: MULTIVITAMINS, THERA 1 EACH TAB PO SCH (08:00)
[2022-07-31] MEDS: DULoxetine HCL 30 MG CAPSULE.DR PO SCH ×2 (08:00→21:02)
[2022-07-31] MEDS: CHOLECALCIFEROL 125 MCG (5000 IU) TABLET PO SCH (08:00)
[2022-07-31] MEDS: FENOFIBRATE 160 MG TAB PO SCH (08:00)
[2022-07-31] MEDS: AMOXIC-POT CLAV 875-125MG 1 EACH TAB PO SCH ×2 (08:00→21:02)
[2022-07-31] MEDS: PANTOPRAZOLE 40 MG TABLET PO SCH (08:00)
[2022-07-31] MEDS: AMMONIUM LACTATE 12% LOTION 225 GM BTL TOPICAL SCH (08:01)
[2022-07-31] MEDS: predniSONE 20 MG TAB PO SCH (08:01)
[2022-07-31] MEDS: LORATADINE 10 MG TAB PO SCH (08:01)
[2022-07-31] MEDS: ASPIRIN 81 MG PO SCH (08:01)
[2022-07-31] MEDS: ENOXAPARIN 40 MG/0.4 ML SYRINGE SQ SCH (08:02)
[2022-07-31] MEDS: IPRATROPIUM-ALBUTEROL 3 ML NEB INHALATION SCH ×4 (08:17→21:46)
--- NOTE | 2022-07-31 10:40 | P.PN ---
Subjective Progress Note Date: 07/30/22 Principal diagnosis: Febrile neutropenia Patient is a 56-year female with a past medical history taken for diabetes mellitus hypertension COPD patient did have a history of right breast cancer on chemotherapy last chemo was about a week ago on the Monday 2 days later on patient started not feeling well symptom has been mostly nausea and vomiting and did have some diarrhea, patient was noticed to be febrile and did have a low white count patient did have a CT abdominal pelvis suggestive of ileus and abdominal hernia but no strangulation on today's evaluation that is 07/30/2022, the patient remains to be afebrile, the patient is breathing comfortably on room air , the patient has been tolerating her diet , the patient denies any further nausea vomiting since complaining of some abdominal discomfort but no worsening no chest pain shortness of breath or cough Objective - Vital Signs Vital signs: Vital Signs Temp 98 F 07/30/22 12:40 Pulse 98 07/30/22 12:56 Resp 16 07/30/22 12:40 BP 120/81 07/30/22 12:40 Pulse Ox 100 07/30/22 12:40 FiO2 Intake & Output 07/29/22 07/30/22 07/30/22 18:59 06:59 18:59 Intake Total 15 Balance 15 Weight 121.7 kg Intake: IV 15 Invasive Line 1 15 Other: Voiding Method Toilet Toilet Toilet # Voids 2 1 1 # Bowel Movements 1 1 2 - Exam GENERAL DESCRIPTION: Middle-age female up in the chair in no distress RESPIRATORY SYSTEM: Unlabored breathing , decreased breath sounds at bases HEART: S1 S2 regular rate and rhythm , ABDOMEN: Soft , mild distention but no tenderness EXTREMITIES: No edema feet - Labs CBC & Chem 7: 07/29/22 10:26 07/27/22 08:54 Labs: Abnormal Lab Results - Last 24 Hours (Table) 07/29/22 07/29/22 07/30/22 Range/Units 16:50 20:03 07:42 POC Glucose (mg/dL) 309 H 322 H 232 H (70-110) mg/dL 07/30/22 Range/Units 11:40 POC Glucose (mg/dL) 292 H (70-110) mg/dL Microbiology - Last 24 Hours (Table) 07/24/22 07:48 Blood Culture - Final Blood No Growth after 144 hours Assessment and Plan (1) Febrile neutropenia Current Visit: Yes Status: Resolved Priority: High Code(s): D70.9 - NEUTROPENIA, UNSPECIFIED; R50.81 - FEVER PRESENTING WITH CONDITIONS CLASSIFIED ELSEWHERE SNOMED Code(s): 072579522 Plan: 1patient was in the hospital with febrile neutropenia predominantly has GI symptoms of nausea and vomiting also complaining of shortness of breath with initial chest x-raymedical abnormality patient did have a CT of abdominal pelvis completed this afternoon with evidence of small bowel obstruction ventral hernia but no evidence of any strangulation more likely dealing with abdominal source and need to cover for the enteric gram-negative both aerobes and anaerobes 2-patient has been evaluated general surgery currently being treated medically 3-patient has shown clinical improvement the patient fever has resolved and the patient white count has normalized, patient has been switched over to Augmentin and we'll monitor closely Time with Patient: Less than 30
[2022-07-31 11:30] LABS: Glucose,Whole Blood 247 mg/dL (70-110)
[2022-07-31] MEDS ORDERED: FUROSEMIDE 10 MG/ML 4 ML VIAL IV STA (11:47)
[2022-07-31] MEDS: IBUPROFEN 400 MG TAB PO PRN (12:20)
[2022-07-31] MEDS: ACETAMINOPHEN TAB 325 MG TAB PO PRN (12:36)
--- NOTE | 2022-07-31 13:59 | P.PN ---
Subjective Progress Note Date: 07/31/22 86-year-old female patient with a past medical history significant for COPD/asthma not on home oxygen, nonsmoker, hypertension, diabetes mellitus type 2, breast cancer in the right breast receiving chemotherapy currently presented with shortness of breath, wheezing, productive cough. In the ER, Labs showed White cell count was 0.6, PT 12.5, INR 1.2, sodium 132, bicarb 19, glucose 425, lactic acid 3.8, calcium 7.0, phosphorus 1.8, magnesium 1.5. Chest x-ray poor inspiratory film no definite infiltrates noted. Patient received neb treatments, IV vancomycin and IV cefepime in the ER. Patient admitted for sepsis, febrile neutropenia, COPD exacerbation. Oncology and ID consulted. Patient also having significant abdominal pain, nausea, vomiting. CT abdomen and pelvis showed possible small bowel focal ileus or closed-loop obstruction, ventral hernia. Surgery was consulted suspect likely ileus. Her ileus resolved with conservative management. Her neutropenia resolved after receiving Filgastrim. Cefepime and Flagyl was discontinued and she was started on Augmentin by mouth. Patient seen and examined at bedside. She has been afebrile since 07/23. Her nausea, vomiting and abdominal pain has significantly improved. She has no complaints today. General: tired appearing, no distress, appears at stated age Derm: warm, dry Head: atraumatic, normocephalic, symmetric Eyes: EOMI, no lid lag, anicteric sclera Mouth: no lip lesion, mucus membranes moist Cardiovascular: S1S2 reg, no murmur Lungs: CTA bilateral, no rhonchi, no rales , no accessory muscle use, supplemental oxygen Abdominal: soft, no tenderness to palpation, no guarding, no appreciable organomegaly Ext: no gross muscle atrophy, 2-3+ LE edema, no contractures Neuro: no focal neuro deficits Psych: Alert, oriented, appropriate affect Neutropenic sepsis Ileus Breast cancer status post cycle 1 chemotherapy Poorly controlled Type 2 diabetes with hyperglycemia, A1c 10.8 Resovled: COPD exacerbation, Hypokalemia Based on my assessment of this patient, this patient meets a moderate complexity level of care. I have reviewed the following project management consultant notes: None. I have reviewed the results of the following tests: POC glucose ranging from 247-323 over the past 24H. I have ordered the following tests: None. I have discussed the care of this patient with the following independent historian: None. I have independently interpreted the following test below: None. I have discussed the management of this patient with the following physician: None. This patient has a moderate risk of morbidity due to the following reasons: Patient had an acute diagnosis of neutropenic sepsis on admission that posed a threat to life or bodily function. She also has ileus that has resolved with conservative management. She received Filgastrim on 07/25. Her leukopenia has resolved. Infectious workup has been negative so far. Transitioned to Augmentin 875-125 by mouth twice a day. One dose of Lasix 40 mg IV given for lower extremity swelling. Continue regular diet. Prednisone decreased to 30 mg PO QD. She will need a slow taper. Continue low dose sliding scale to medium dose. Increase Novolog from 10 to 15 units TID. Levamir increased to 30 units SQ daily. Infectious disease, general surgery and oncology on board. She is medically stable. She is insurance authorization for SNF. Objective - Vital Signs Vital signs: Vital Signs Temp 97.7 F 07/31/22 12:05 Pulse 99 07/31/22 12:30 Resp 18 07/31/22 12:05 BP 123/87 07/31/22 12:05 Pulse Ox 99 07/31/22 12:05 FiO2 Intake & Output 07/30/22 07/31/22 07/31/22 18:59 06:59 18:59 Intake Total 712 690 Output Total 100 Balance 712 590 Intake: Oral 712 690 Output: Stool 100 Other: Voiding Method Toilet Toilet Toilet # Voids 1 1 1 # Bowel Movements 1 1 1 - Labs CBC & Chem 7: 07/29/22 10:26 07/27/22 08:54 Labs: Abnormal Lab Results - Last 24 Hours (Table) 07/30/22 07/30/22 07/31/22 Range/Units 16:15 19:54 05:52 POC Glucose (mg/dL) 306 H 323 H 255 H (70-110) mg/dL 07/31/22 Range/Units 11:28 POC Glucose (mg/dL) 247 H (70-110) mg/dL Microbiology - Last 24 Hours (Table) 07/24/22 07:48 Blood Culture - Final Blood No Growth after 144 hours
--- NOTE | 2022-07-31 16:00 | P.PN ---
Subjective Progress Note Date: 07/31/22 Principal diagnosis: Febrile neutropenia Patient is a 56-year female with a past medical history taken for diabetes mellitus hypertension COPD patient did have a history of right breast cancer on chemotherapy last chemo was about a week ago on the Monday 2 days later on patient started not feeling well symptom has been mostly nausea and vomiting and did have some diarrhea, patient was noticed to be febrile and did have a low white count patient did have a CT abdominal pelvis suggestive of ileus and abdominal hernia but no strangulation on today's evaluation that is 07/31/2022, the patient continues to be afebrile, the patient is breathing comfortably on room air , the patient denies any nausea vomiting, abdominal pain has improved stools are forming up no chest pain shortness of breath or cough Objective - Vital Signs Vital signs: Vital Signs Temp 97.7 F 07/31/22 12:05 Pulse 99 07/31/22 12:30 Resp 18 07/31/22 12:05 BP 123/87 07/31/22 12:05 Pulse Ox 99 07/31/22 12:05 FiO2 Intake & Output 07/30/22 07/31/22 07/31/22 18:59 06:59 18:59 Intake Total 712 690 Output Total 100 Balance 712 590 Intake: Oral 712 690 Output: Stool 100 Other: Voiding Method Toilet Toilet Toilet # Voids 1 1 1 # Bowel Movements 1 1 1 - Exam GENERAL DESCRIPTION: Middle-age female up in the chair in no distress RESPIRATORY SYSTEM: Unlabored breathing , decreased breath sounds at bases HEART: S1 S2 regular rate and rhythm , ABDOMEN: Soft , mild distention but no tenderness EXTREMITIES: No edema feet - Labs CBC & Chem 7: 07/29/22 10:26 07/27/22 08:54 Labs: Abnormal Lab Results - Last 24 Hours (Table) 07/30/22 07/30/22 07/31/22 Range/Units 16:15 19:54 05:52 POC Glucose (mg/dL) 306 H 323 H 255 H (70-110) mg/dL 07/31/22 Range/Units 11:28 POC Glucose (mg/dL) 247 H (70-110) mg/dL Assessment and Plan (1) Febrile neutropenia Current Visit: Yes Status: Resolved Priority: High Code(s): D70.9 - NEUTROPENIA, UNSPECIFIED; R50.81 - FEVER PRESENTING WITH CONDITIONS CLASSIFIED ELSEWHERE SNOMED Code(s): 966332230 Plan: 1patient was in the hospital with febrile neutropenia predominantly has GI symptoms of nausea and vomiting also complaining of shortness of breath with initial chest x-raymedical abnormality patient did have a CT of abdominal pelvis completed this afternoon with evidence of small bowel obstruction ventral hernia but no evidence of any strangulation more likely dealing with abdominal source and need to cover for the enteric gram-negative both aerobes and anaerobes 2-patient has been evaluated general surgery currently being treated medically 3-patient has shown clinical improvement the patient fever has resolved and the patient white count has normalized, patient to continue Augmentin and we'll monitor clinical course closely Time with Patient: Less than 30
[2022-07-31 16:27] LABS: Glucose,Whole Blood 283 mg/dL (70-110)
[2022-07-31 19:56] LABS: Glucose,Whole Blood 296 mg/dL (70-110)
[2022-07-31] MEDS: ATORVASTATIN 40 MG TAB PO SCH (21:02)
[2022-08-01] MEDS: IBUPROFEN 400 MG TAB PO PRN (01:09)
[2022-08-01 05:47] LABS: Glucose,Whole Blood 103 mg/dL (70-110)
[2022-08-01] MEDS: INSULIN ASPART (NovoLOG) 100 UNIT/ML VIAL SQ SCH ×4 (06:13→12:12)
[2022-08-01] MEDS: SALT AND SODA MOUTHWASH 1,000 ML PO SCH ×3 (06:23→16:21)
[2022-08-01] MEDS ORDERED: INSULIN DETEMIR (LEVEMIR) 100 UNIT/ML SYR SQ SCH (07:00)
[2022-08-01] MEDS: IPRATROPIUM-ALBUTEROL 3 ML NEB INHALATION SCH ×3 (08:35→16:03)
[2022-08-01] MEDS ORDERED: predniSONE 10 MG TAB PO SCH (09:00)
[2022-08-01] MEDS: CHOLECALCIFEROL 125 MCG (5000 IU) TABLET PO SCH (09:02)
[2022-08-01] MEDS: CITALOPRAM HYDROBROMIDE 20 MG TAB PO SCH (09:02)
[2022-08-01] MEDS: ENOXAPARIN 40 MG/0.4 ML SYRINGE SQ SCH (09:02)
[2022-08-01] MEDS: MULTIVITAMINS, THERA 1 EACH TAB PO SCH (09:03)
[2022-08-01] MEDS: FENOFIBRATE 160 MG TAB PO SCH (09:03)
[2022-08-01] MEDS: DULoxetine HCL 30 MG CAPSULE.DR PO SCH (09:03)
[2022-08-01] MEDS: AMOXIC-POT CLAV 875-125MG 1 EACH TAB PO SCH (09:03)
[2022-08-01] MEDS: LORATADINE 10 MG TAB PO SCH (09:04)
[2022-08-01] MEDS: CYANOCOBALAMIN 500 MCG TAB PO SCH (09:04)
[2022-08-01] MEDS: ASPIRIN 81 MG PO SCH (09:05)
[2022-08-01] MEDS: PANTOPRAZOLE 40 MG TABLET PO SCH (09:05)
[2022-08-01] MEDS: amLODIPine 10 MG TAB PO SCH (09:05)
[2022-08-01 11:32] LABS: Glucose,Whole Blood 214 mg/dL (70-110)
[2022-08-01] MEDS: AMMONIUM LACTATE 12% LOTION 225 GM BTL TOPICAL SCH (12:22)
[2022-08-01 12:35] LABS: Basophils # (A) 0.1 k/uL (0-0.2); Basophils % (A) 1 %; Eosinophils % (A) 0 %; HCT 30.1 % (34.0-46.0); HGB 10.7 gm/dL (11.4-16.0); Lymphocytes # (A) 2.3 k/uL (1.0-4.8); Lymphocytes % (A) 28 %; MCH 33.9 pg (25.0-35.0); MCHC 35.5 g/dL (31.0-37.0); MCV 95.6 fL (80.0-100.0); Mean Platelet Volume 11.4; Monocytes # (A) 0.6 k/uL (0-1.0); Monocytes % (A) 7 %; Neutrophils # (A) 4.9 k/uL (1.3-7.7); Neutrophils % (A) 60 %; RBC 3.15 m/uL (3.80-5.40); RDW 15.7 % (11.5-15.5); WBC 8.2 k/uL (3.8-10.6)
[2022-08-01 12:49] LABS: Platelet Count 77 k/uL (150-450)
--- NOTE | 2022-08-01 14:05 | P.PN ---
Subjective Progress Note Date: 08/01/22 86-year-old female patient with a past medical history significant for COPD/asthma not on home oxygen, nonsmoker, hypertension, diabetes mellitus type 2, breast cancer in the right breast receiving chemotherapy currently presented with shortness of breath, wheezing, productive cough. In the ER, Labs showed White cell count was 0.6, PT 12.5, INR 1.2, sodium 132, bicarb 19, glucose 425, lactic acid 3.8, calcium 7.0, phosphorus 1.8, magnesium 1.5. Chest x-ray poor inspiratory film no definite infiltrates noted. Patient received neb treatments, IV vancomycin and IV cefepime in the ER. Patient admitted for sepsis, febrile neutropenia, COPD exacerbation. Oncology and ID consulted. Patient also having significant abdominal pain, nausea, vomiting. CT abdomen and pelvis showed possible small bowel focal ileus or closed-loop obstruction, ventral hernia. Surgery was consulted suspect likely ileus. Her ileus resolved with conservative management. Her neutropenia resolved after receiving Filgastrim. Cefepime and Flagyl was discontinued and she was started on Augmentin by mouth. Patient seen and examined at bedside. She has been afebrile since 07/23. Her nausea, vomiting and abdominal pain has significantly improved. She has no complaints today. General: tired appearing, no distress, appears at stated age Derm: warm, dry Head: atraumatic, normocephalic, symmetric Eyes: EOMI, no lid lag, anicteric sclera Mouth: no lip lesion, mucus membranes moist Cardiovascular: S1S2 reg, no murmur Lungs: CTA bilateral, no rhonchi, no rales , no accessory muscle use, supplemental oxygen Abdominal: soft, no tenderness to palpation, no guarding, no appreciable organomegaly Ext: no gross muscle atrophy, 2-3+ LE edema, no contractures Neuro: no focal neuro deficits Psych: Alert, oriented, appropriate affect Neutropenic sepsis Ileus Breast cancer status post cycle 1 chemotherapy Poorly controlled Type 2 diabetes with hyperglycemia, A1c 10.8 Resovled: COPD exacerbation, Hypokalemia Based on my assessment of this patient, this patient meets a moderate complexity level of care. I have reviewed the following sales consultant insurance notes: None. I have reviewed the results of the following tests: POC glucose ranging from 103-296 over the past 24H. CBC shows Hg 10.7 and Plt count of 77. I have ordered the following tests: None. I have discussed the care of this patient with the following independent historian: None. I have independently interpreted the following test below: None. I have discussed the management of this patient with the following physician: None. This patient has a moderate risk of morbidity due to the following reasons: Patient had an acute diagnosis of neutropenic sepsis on admission that posed a threat to life or bodily function. She also has ileus that has resolved with conservative management. She received Filgastrim on 07/25. Her leukopenia has resolved. Infectious workup has been negative so far. Transitioned to Augmentin 875-125 by mouth twice a day. Continue regular diet. Prednisone decreased to 30 mg PO QD 07/31. She will need a slow taper. Continue low dose sliding scale to medium dose. Increase Novolog from 10 to 15 units TID. Levamir increased to 30 units SQ daily. Infectious disease, general surgery and oncology on board. She is medically stable. She is insurance authorization for SNF. Objective - Vital Signs Vital signs: Vital Signs Temp 97.8 F 08/01/22 09:12 Pulse 92 08/01/22 12:16 Resp 18 08/01/22 12:11 BP 125/79 08/01/22 12:11 Pulse Ox 100 08/01/22 12:11 FiO2 Intake & Output 07/31/22 08/01/22 08/01/22 18:59 06:59 18:59 Intake Total 990 540 Output Total 100 Balance 890 540 Intake: Oral 990 540 Output: Stool 100 Other: Voiding Method Toilet Toilet # Voids 1 1 # Bowel Movements 1 1 - Labs CBC & Chem 7: 08/01/22 10:48 07/27/22 08:54 Labs: Abnormal Lab Results - Last 24 Hours (Table) 07/31/22 07/31/22 08/01/22 Range/Units 16:24 19:55 10:48 RBC 3.15 L (3.80-5.40) m/uL Hgb 10.7 L (11.4-16.0) gm/dL Hct 30.1 L (34.0-46.0) % RDW 15.7 H (11.5-15.5) % Plt Count 77 L (150-450) k/uL POC Glucose (mg/dL) 283 H 296 H (70-110) mg/dL 08/01/22 Range/Units 11:29 RBC (3.80-5.40) m/uL Hgb (11.4-16.0) gm/dL Hct (34.0-46.0) % RDW (11.5-15.5) % Plt Count (150-450) k/uL POC Glucose (mg/dL) 214 H (70-110) mg/dL
[2022-08-01 15:31] VITALS: BP 132/83; RESP 16; TEMP 98.1
--- NOTE | 2022-08-01 16:04 | P.DS ---
Providers Date of admission: 07/22/22 14:50 Expected date of discharge: 08/01/22 Attending physician: Randa Stapleton MD Consults: 07/22/22 14:58 Consult Physician Routine Consulting Provider: Shan Munoz Consult Reason/Comments: Breast cancer with leucopenia Do you want consulting provider notified?: Yes 07/23/22 11:53 Consult Physician Routine Consulting Provider: Angela Ma Consult Reason/Comments: febrile neutropenia Do you want consulting provider notified?: Yes Primary care physician: [facility] Course: 86-year-old female patient with a past medical history significant for COPD/asthma not on home oxygen, nonsmoker, hypertension, diabetes mellitus type 2, breast cancer in the right breast receiving chemotherapy currently presented with shortness of breath, wheezing, productive cough. In the ER, Labs showed White cell count was 0.6, PT 12.5, INR 1.2, sodium 132, bicarb 19, glucose 425, lactic acid 3.8, calcium 7.0, phosphorus 1.8, magnesium 1.5. Chest x-ray poor inspiratory film no definite infiltrates noted. Patient received neb treatments, IV vancomycin and IV cefepime in the ER. Patient admitted for sepsis, febrile neutropenia, COPD exacerbation. Oncology and ID consulted. Patient also having significant abdominal pain, nausea, vomiting. CT abdomen and pelvis showed possible small bowel focal ileus or closed-loop obstruction, ventral hernia. Surgery was consulted suspect likely ileus. Her ileus resolved with conservative management. Her neutropenia resolved after receiving Filgastrim. Cefepime and Flagyl was discontinued and she was started on Augmentin by mouth. She is to complete 7 more days of Augmentin. She will be discharged home on a Prednisone taper. Patient is advised to follow up with her PCP within 1-2 days and Oncology within 1 week of discharge. Please refer to progress note for physical exam. Pertinent studies include Venous duplex, KUB, CT AP, CXR Discharge Diagnosis: Neutropenic sepsis Ileus Breast cancer status post cycle 1 chemotherapy Poorly controlled Type 2 diabetes with hyperglycemia, A1c 10.8 Resovled: COPD exacerbation, Hypokalemia This complex discharge took 35 minutes to complete. Patient Condition at Discharge: Stable Plan - Discharge Summary Discharge Rx Participant: No New Discharge Prescriptions: New Amoxic-Pot Clav 875-125Mg [Augmentin 875-125] 1 each PO Q12HR 7 Days #14 tab Melatonin 3 mg PO HS PRN tab PRN Reason: Insomnia amLODIPine [Norvasc] 10 mg PO DAILY tab predniSONE See Taper PO DAILY #18 tab Continue Complete Advanced Complete 1 tab PO DAILY@0800 Acetaminophen Tab [Tylenol] 500 mg PO QID PRN PRN Reason: Pain Ammonium Lactate Lotion [Lac-Hydrin 12% Lotion] 1 applic TOPICAL DAILY Aspirin 81 mg PO DAILY@0800 Cyanocobalamin (Vitamin B-12) [Vitamin B-12] 1,000 mcg PO DAILY@0800 DULoxetine HCL [Cymbalta] 30 mg PO BID@0800,1999 Ferrous Sulfate [Iron (65 MG Elemental)] 325 mg PO DAILY@0800 glipiZIDE [Glucotrol] 10 mg PO BID@0800,1200 metFORMIN HCL [Glucophage] 500 mg PO BID@0800,1999 methocarbamoL [Robaxin-750] 750 mg PO BID PRN PRN Reason: Muscle Spasm Multivitamins, Thera [Multivitamin (formulary)] 1 tab PO DAILY@0800 Pantoprazole [Protonix] 40 mg PO DAILY@0800 Simethicone [Gas-X] 125 mg PO QID PRN PRN Reason: Indigestion Albuterol Sulfate [Albuterol Sulfate Hfa] 2 puff INHALATION RT-Q4H PRN PRN Reason: Wheezing Atorvastatin [Lipitor] 40 mg PO HS@2000 Cetirizine HCl [Zyrtec] 10 mg PO DAILY@0800 Cholecalciferol [Vitamin D3 (25 Mcg = 1000 Iu)] 75 mcg PO DAILY@0800 Citalopram Hydrobromide [CeleXA] 40 mg PO DAILY@0800 Dulaglutide [Trulicity] 1.5 mg SQ FR Fluticasone Propionate 110 Mcg [Flovent 110 Mcg Inhaler] 2 puff INHALATION RT-BID PRN PRN Reason: Shortness Of Breath Furosemide [Lasix] 40 mg PO DAILY@0800 gemfibroziL [Lopid] 600 mg PO BID@0800,1200 Ibuprofen [Motrin] 400 mg PO QID PRN PRN Reason: Pain [place]-3/Dha/Epa/Fish Oil [Fish Oil 1,000 mg Softgel] 1 cap PO BID@0800,1999 Ondansetron [Zofran] 4 mg PO Q8H PRN PRN Reason: Nausea Prochlorperazine [Compazine] 10 mg PO Q6H PRN PRN Reason: Nausea ALPRAZolam [Xanax] 0.25 mg PO TID PRN #9 tab PRN Reason: Anxiety Discontinued Loratadine [Claritin] 10 mg PO DAILY PRN PRN Reason: Allergy Symptoms Pembrolizumab [Keytruda] 1 dose IV Q21D Discharge Medication List Acetaminophen Tab [Tylenol] 500 mg PO QID PRN 07/22/22 [History] Albuterol Sulfate [Albuterol Sulfate Hfa] 2 puff INHALATION RT-Q4H PRN 07/22/22 [History] Ammonium Lactate Lotion [Lac-Hydrin 12% Lotion] 1 applic TOPICAL DAILY 07/22/22 [History] Aspirin 81 mg PO DAILY@79907/22/22 [History] Atorvastatin [Lipitor] 40 mg PO HS@199907/22/22 [History] Cetirizine HCl [Zyrtec] 10 mg PO DAILY@79907/22/22 [History] Cholecalciferol [Vitamin D3 (25 Mcg = 1000 Iu)] 75 mcg PO DAILY@79907/22/22 [History] Citalopram Hydrobromide [CeleXA] 40 mg PO DAILY@79907/22/22 [History] Complete Advanced Complete 1 tab PO DAILY@79907/22/22 [History] Cyanocobalamin (Vitamin B-12) [Vitamin B-12] 1,000 mcg PO DAILY@79907/22/22 [History] DULoxetine HCL [Cymbalta] 30 mg PO BID@07/22/22 [History] Dulaglutide [Trulicity] 1.5 mg SQ FR 07/22/22 [History] Ferrous Sulfate [Iron (65 MG Elemental)] 325 mg PO DAILY@79907/22/22 [History] Fluticasone Propionate 110 Mcg [Flovent 110 Mcg Inhaler] 2 puff INHALATION RT- BID PRN 07/22/22 [History] Furosemide [Lasix] 40 mg PO DAILY@79907/22/22 [History] Ibuprofen [Motrin] 400 mg PO QID PRN 07/22/22 [History] Multivitamins, Thera [Multivitamin (formulary)] 1 tab PO DAILY@0800 07/22/22 [History] [place]-3/Dha/Epa/Fish Oil [Fish Oil 1,000 mg Softgel] 1 cap PO BID@0800,199907/22/22 [History] Ondansetron [Zofran] 4 mg PO Q8H PRN 07/22/22 [History] Pantoprazole [Protonix] 40 mg PO DAILY@0800 07/22/22 [History] Prochlorperazine [Compazine] 10 mg PO Q6H PRN 07/22/22 [History] Simethicone [Gas-X] 125 mg PO QID PRN 07/22/22 [History] gemfibroziL [Lopid] 600 mg PO BID@0800,119907/22/22 [History] glipiZIDE [Glucotrol] 10 mg PO BID@0800,1200 07/22/22 [History] metFORMIN HCL [Glucophage] 500 mg PO BID@08,199907/22/22 [History] methocarbamoL [Robaxin-750] 750 mg PO BID PRN 07/22/22 [History] ALPRAZolam [Xanax] 0.25 mg PO TID PRN #9 tab 08/01/22 [Rx] Amoxic-Pot Clav 875-125Mg [Augmentin 875-125] 1 each PO Q12HR 7 Days #14 tab 08/01/22 [Rx] Melatonin 3 mg PO HS PRN tab 08/01/22 [Rx] amLODIPine [Norvasc] 10 mg PO DAILY tab 08/01/22 [Rx] predniSONE See Taper PO DAILY #18 tab 08/01/22 [Rx] Follow up Appointment(s)/Referral(s): Alfredito Teixeira DO [REFERRING] - 1 Week Nonstaff,Physician [REFERRING] - 1-2 days Activity/Diet/Wound Care/Special Instructions: Diet: Low salt Follow up with your PCP within 1-2 days of discharge. Follow up with your Oncologist within 1 week of discharge. Augmentin for 1 week. Prednisone taper - 30 mg PO QD x 3 days, 20 mg PO QD x 3 days, 10 mg PO QD x 3 days. Discharge Disposition: TRANSFER TO SNF/ECF
[2022-08-01 16:06] VITALS: PULSE 90
== END 2022-08-01 17:08 | DRG 871 ==
LOC: EC 10:53 → 3SCARD 14:50
PROVIDERS: ADMIT Internal Medicine; ATTEND Internal Medicine
DX: A41.9 Sepsis, unspecified organism (principal); D61.810 Antineoplastic chemotherapy induced pancytopenia; E11.10 Type 2 diabetes mellitus with ketoacidosis without coma; J96.01 Acute respiratory failure with hypoxia; C77.3 Secondary and unspecified malignant neoplasm of axilla and upper limb lymph nodes; J44.1 Chronic obstructive pulmonary disease with (acute) exacerbation; K56.7 Ileus, unspecified; K80.10 Calculus of gallbladder with chronic cholecystitis without obstruction; D70.1 Agranulocytosis secondary to cancer chemotherapy; C50.911 Malignant neoplasm of unspecified site of right female breast; Z17.1 Estrogen receptor negative status [ER-]; T45.1X5A Adverse effect of antineoplastic and immunosuppressive drugs, initial encounter; E78.00 Pure hypercholesterolemia, unspecified; E83.39 Other disorders of phosphorus metabolism; E83.42 Hypomagnesemia; E83.51 Hypocalcemia; E87.6 Hypokalemia; F32.A Depression, unspecified; F43.10 Post-traumatic stress disorder, unspecified; R11.2 Nausea with vomiting, unspecified; I10 Essential (primary) hypertension; K12.31 Oral mucositis (ulcerative) due to antineoplastic therapy; K42.9 Umbilical hernia without obstruction or gangrene; K43.9 Ventral hernia without obstruction or gangrene; R50.81 Fever presenting with conditions classified elsewhere; Z79.4 Long term (current) use of insulin; Z79.82 Long term (current) use of aspirin; Z79.84 Long term (current) use of oral hypoglycemic drugs; Z79.899 Other long term (current) drug therapy; Z20.822 Contact with and (suspected) exposure to COVID-19; Z71.3 Dietary counseling and surveillance; Z87.891 Personal history of nicotine dependence
CPT/HCPCS: 36415; 71046; 74019; 74178; 80048; 80051; 80053; 80202; 82009; 82306; 82565; 82947; 83036; 83605; 83735; 84100; 84145; 84484; 84520; 85025; 85610; 85652; 85730; 86140; 87040; 87324; 87449; 87635; 93005; 94640; 94760; 96361; 96365; 96366; 96367; 96375; 99291